=== PATIENT | female | born 1955 | race Caucasian/White ===

== ENCOUNTER → 2020-07-17 09:59 | Outpatient (BNV) | payer MEDICARE, SELFPAY | PROVIDERS: PCP Nurse Practitioner Family; Visit Provider Internal Medicine Medical Oncology | DX: C50.911 Malignant neoplasm of unspecified site of right female breast (principal); M81.0 Age-related osteoporosis without current pathological fracture | CPT/HCPCS: 99213; 99214 ==

== ENCOUNTER 2020-07-25 10:14 | Outpatient (REF) | payer MEDICARE, SELFPAY ==
--- NOTE | 2020-07-25 10:19 | MM_ITS ---
EXAMINATION: BONE DENSITOMETRY CLINICAL INDICATION: Osteoporosis. COMPARISON: Baseline BD dated 10/10/2017. TECHNIQUE: Using a [employer] DXA System (software version: 13.1) manufactured by [employer], dual-energy x-ray absorptiometry was performed of the spine and left hip. The images are of good technical quality. Summary results are attached. FINDINGS: AP SPINE L1-L4: Current: BMD 0.826 g/cm2, Z-score -0.7, T-score -2.9, osteoporosis, 4.7% increase from baseline (<5% change is not significant). Baseline: BMD 0.789 g/cm2. LEFT FEMUR, NECK: Current: BMD 0.666 g/cm2, Z-score -0.7, T-score -2.7, osteoporosis. Baseline: BMD 0.683 g/cm2. LEFT FEMUR, TOTAL: Current: BMD 0.704 g/cm2, Z-score -0.7, T-score -2.4, osteopenia, 2.8% increase from baseline (<5% change is not significant). Baseline: BMD 0.685 g/cm2. IDENTIFIED RISK FACTORS: Osteoporosis, tobacco use (current smoker), height loss, ERT/SERMS, menopause. HISTORY OF FRACTURE: None listed. MEDICATIONS: Calcium supplements or multivitamin, vitamin D. MM/XR DEXA axial skeleton IMPRESSION: 1. DIAGNOSIS: Osteoporosis based on the lowest T-score value of -2.9 in the lumbar spine applying World Health Organization criteria. 2. 10-YEAR FRACTURE RISK PREDICTION, FRAX: Major osteoporotic fracture (clinical spine, forearm, hip or shoulder) 14.5%. Hip fracture 5.6%. 3. Treatment Recommendations: NOF guidelines recommend consideration for treatment in postmenopausal women and men age 50 and older presenting with the following: -A hip or vertebral (clinical or morphometric) fracture. -T-score less than or equal to -2.5 at the femoral neck or spine after appropriate evaluation to exclude secondary causes. -Low bone mass at the hip or spine and a 10-year fracture probability by FRAX of greater than or equal to 3% for hip fracture or greater than or equal to 20% for major osteoporotic fracture based on the [place] adapted WHO algorithm. 4. Other Recommendations: All treatment decisions require clinical judgment and consideration of individual patient factors, including patient preferences, comorbidities, previous drug use, risk factors not captured in the FRAX model (e.g. frailty, falls, vitamin D deficiency, increased bone turnover, interval significant decline in bone density) and possible under or overestimation of fracture risk by FRAX. Additional medical evaluation for secondary cause of low bone mineral density may be appropriate. FUTURE SCAN RECOMMENDATION: People with diagnosed cases of osteoporosis or at high risk for fracture should have regular bone mineral density tests. For patients eligible for Medicare, routine testing is allowed once every 2 years. The testing frequency can be increased to one year for patients who have rapidly progressing disease, those who are receiving or discontinuing medical therapy to restore bone mass, or have additional risk factors.
== END 2020-07-25 10:15 | disposition home or self-care (01) ==
LOC: HO.MAMMO 10:14
PROVIDERS: Visit Provider Internal Medicine Medical Oncology
DX: M81.0 Age-related osteoporosis without current pathological fracture (principal); Z78.0 Asymptomatic menopausal state; F17.200 Nicotine dependence, unspecified, uncomplicated
CPT/HCPCS: 77080

== ENCOUNTER 2020-07-26 13:40 | Outpatient (REF) | payer MEDICARE, SELFPAY | END 2020-07-26 13:41 | disposition home or self-care (01) | LOC: HO.LAB 13:40 | PROVIDERS: Visit Provider Internal Medicine | DX: Z20.828 Contact with and (suspected) exposure to other viral communicable diseases (principal) | CPT/HCPCS: C9803; U0003 ==

== ENCOUNTER → 2020-09-04 12:16 | Outpatient (BNVA) | payer MEDICARE, SELFPAY | PROVIDERS: PCP Nurse Practitioner Family; Visit Provider Physician Assistant | DX: Z13.89 Encounter for screening for other disorder (principal) | CPT/HCPCS: Q3014 ==

== ENCOUNTER 2021-05-09 13:38 | Outpatient (REF) | payer MEDICARE, SELFPAY ==
[2021-05-11 12:56] LABS: Lyme Abs Screen <0.90 index
== END 2021-05-09 13:39 | disposition home or self-care (01) ==
LOC: HO.HMGCLDS 13:38
PROVIDERS: PCP Nurse Practitioner Family; Visit Provider Hospitalist
DX: T14.8XXA Other injury of unspecified body region, initial encounter (principal); W57.XXXA Bitten or stung by nonvenomous insect and other nonvenomous arthropods, initial encounter; Y93.9 Activity, unspecified; Y92.9 Unspecified place or not applicable; Y99.9 Unspecified external cause status
CPT/HCPCS: 36415; 86617; 86618

== ENCOUNTER 2021-12-25 12:35 | Outpatient (REF) | payer BC, MEDICARE, SELFPAY ==
[2021-12-25 13:43] LABS: MANUAL DIFF FLAG NO
[2021-12-25 13:50] LABS: Basophils Absolute Auto 0.1 X10*3/uL (0.0-0.2); Basophils Percent Auto 0.8 % (0-2); Eosinophils Absolute Auto 0.1 X10*3/uL (0.0-0.4); Eosinophils Percent Auto 1.2 % (0-4); Hematocrit 39.8 % (37.0-47.0); Hemoglobin 13.2 g/dl (12.0-16.0); Imm Gran Abs Auto 0.02 X10*3/uL (0.00-0.03); Imm Gran Pct Auto 0.3 % (0.0-0.4); Lymphocytes Absolute Auto 2.1 X10*3/uL (1.2-4.9); Lymphocytes Percent Auto 31.1 % (20-40); Mean Corpuscular HGB Conc 33.2 g/dl (31.0-35.0); Mean Corpuscular Hemoglobin 31.4 pg (27.0-33.0); Mean Corpuscular Volume 94.8 fL (80.0-98.0); Mean Platelet Volume 10.6 fL (9.4-12.3); Monocytes Absolute Auto 0.6 X10*3/uL (0.1-1.2); Monocytes Percent Auto 8.6 % (2-11); Neutrophils Absolute Auto 3.9 x10*3/uL (2.0-8.3); Platelet Count 261 X10*3/uL (160-400); Red Cell Distribution Width 13.8 % (11.0-16.0); White Blood Count 6.7 X10*3/uL (4.8-10.8)
[2021-12-25 13:51] LABS: Appearance Urine CLEAR; Color Urine YELLOW; Glucose Urine UA NEG (NEG); Leukocyte Esterase Urine NEG (NEG); Nitrite Urine NEG (NEG); Specific Gravity - Urine <= 1.005 (1.005-1.025); Urine Blood NEG (NEG); Urine Ketones NEG (NEG); Urine Protein NEG (NEG-TRACE)
[2021-12-25 14:12] LABS: Alanine Aminotransferase 11 U/L (0-31); Albumin Level 4.1 g/dL (3.5-5.0); Alkaline Phosphatase 46 U/L (39-117); Anion Gap 12 (12-20); Aspartate Amino Transferase 17 U/L (5-31); Bilirubin Total 0.2 mg/dL (0.0-1.0); Blood Urea Nitrogen 12 mg/dL (9-16); Calcium 9.1 mg/dL (8.4-10.2); Carbon Dioxide 26 mmol/L (22-29); Chloride 109 mmol/L (96-108); Cholesterol 257 mg/dL; Estimated Glomerular Filt Rate > 60; Glucose Fasting 96 mg/dL (60-99); HDL Cholesterol 54 mg/dL; LDL Cholesterol Calculated 179 mg/dl; Potassium 4.8 mmol/L (3.3-5.1); Sodium 142 mmol/L (135-145); Total Protein 6.6 g/dL (6.5-8.0); Triglycerides 122 mg/dL
[2021-12-25 14:33] LABS: TSH reflex Free T4 2.51 uIU/mL (0.32-4.0)
== END 2021-12-25 12:36 | disposition home or self-care (01) ==
LOC: HO.HMGCLDS 12:35
PROVIDERS: PCP Nurse Practitioner Family; Visit Provider Nurse Practitioner Family
DX: Z00.00 Encounter for general adult medical examination without abnormal findings (principal)
CPT/HCPCS: 36415; 80053; 80061; 81003; 84443; 85025

== ENCOUNTER 2022-07-30 10:22 | Outpatient (REF) | payer MEDICARE, SELFPAY ==
--- NOTE | ~2022-07-30 | MM_ITS ---
EXAMINATION: BONE DENSITOMETRY CLINICAL INDICATION: Asymptomatic menopausal state. COMPARISON: Previous BD dated 07/25/2020 and baseline BD dated 10/10/2017. TECHNIQUE: Using a [employer] DXA System (software version: 13.1) manufactured by [employer], dual-energy x-ray absorptiometry was performed of the lumbar spine and left hip. The images are of good technical quality. Summary results are attached. FINDINGS: AP SPINE L1-L3 (excluding L4): The data of L1-L4 has been changed to exclude the L4 vertebral body, because degenerative sclerosis at this level may cause overestimation of lumbar spine density. Current: BMD 0.692 g/cm2, Z-score -1.7, T-score -4.0, osteoporosis, 13.1% decrease from previous, 6.2% decrease from baseline (<5% change is not significant). Prior: BMD 0.796 g/cm2. Baseline: BMD 0.738 g/cm2. LEFT FEMUR, NECK: Current: BMD 0.705 g/cm2, Z-score -0.4, T-score -2.4, osteopenia. Prior: BMD 0.666 g/cm2. Baseline: BMD 0.683 g/cm2. LEFT FEMUR, TOTAL: Current: BMD 0.683 g/cm2, Z-score -0.8, T-score -2.6, osteoporosis, 3.0% decrease from previous, 0.3% decrease from baseline (<5% change is not significant). Prior: BMD 0.704 g/cm2. Baseline: BMD 0.685 g/cm2. IDENTIFIED RISK FACTORS: Osteoporosis, tobacco use (current smoker), height loss, menopause. HISTORY OF FRACTURE: None listed. MEDICATIONS: Calcium/multivitamin, ERT/SERMS. MM/XR DEXA axial skeleton IMPRESSION: 1. DIAGNOSIS: Osteoporosis based on the lowest T-score value of -4.0 in the lumbar spine applying World Health Organization criteria. 2. 10-YEAR FRACTURE RISK PREDICTION, FRAX: According to the guidelines, FRAX calculation should only be performed on patients in the osteopenia bone density category. Therefore, FRAX was not performed on this patient. 3. Treatment Recommendations: NOF guidelines recommend consideration for treatment in postmenopausal women and men age 50 and older presenting with the following: -A hip or vertebral (clinical or morphometric) fracture. -T-score less than or equal to -2.5 at the femoral neck or spine after appropriate evaluation to exclude secondary causes. -Low bone mass at the hip or spine and a 10-year fracture probability by FRAX of greater than or equal to 3% for hip fracture or greater than or equal to 20% for major osteoporotic fracture based on the [place] adapted WHO algorithm. 4. Other Recommendations: All treatment decisions require clinical judgment and consideration of individual patient factors, including patient preferences, comorbidities, previous drug use, risk factors not captured in the FRAX model (e.g. frailty, falls, vitamin D deficiency, increased bone turnover, interval significant decline in bone density) and possible under or overestimation of fracture risk by FRAX. Additional medical evaluation for secondary cause of low bone mineral density may be appropriate. FUTURE SCAN RECOMMENDATION: People with diagnosed cases of osteoporosis or at high risk for fracture should have regular bone mineral density tests. For patients eligible for Medicare, routine testing is allowed once every 2 years. The testing frequency can be increased to one year for patients who have rapidly progressing disease, those who are receiving or discontinuing medical therapy to restore bone mass, or have additional risk factors.
== END 2022-07-30 10:23 | disposition home or self-care (01) ==
LOC: HO.MAMMO 10:22
PROVIDERS: Visit Provider Nurse Practitioner Family
DX: Z13.820 Encounter for screening for osteoporosis (principal); Z78.0 Asymptomatic menopausal state
CPT/HCPCS: 77080

== ENCOUNTER 2022-09-25 12:44 | Outpatient (REF) | payer MEDICARE, SELFPAY ==
[2022-09-25 15:24] LABS: Anion Gap 11 (12-20); Blood Urea Nitrogen 13 mg/dL (9-16); Calcium 9.2 mg/dL (8.4-10.2); Carbon Dioxide 29 mmol/L (22-29); Chloride 109 mmol/L (96-108); Estimated Glomerular Filt Rate > 60; Potassium 4.6 mmol/L (3.3-5.1); Sodium 144 mmol/L (135-145)
[2022-09-25 15:46] LABS: Vitamin D 25-OH Total 44.9 ng/mL (>30)
== END 2022-09-25 12:45 | disposition home or self-care (01) ==
LOC: HO.HMGCLDS 12:44
PROVIDERS: Absent Provider Internal Medicine Nephrology; PCP Nurse Practitioner Family; Visit Provider Nurse Practitioner Family
DX: I10 Essential (primary) hypertension (principal); M81.0 Age-related osteoporosis without current pathological fracture; Z78.0 Asymptomatic menopausal state
CPT/HCPCS: 36415; 80051; 82306; 82310; 82565; 84520

== ENCOUNTER → 2022-10-04 09:39 | Outpatient (BNVA) | payer MEDICARE, SELFPAY | PROVIDERS: PCP Nurse Practitioner Family; Visit Provider Internal Medicine Endocrinology, Diabetes & Metabolism | DX: Z00.00 Encounter for general adult medical examination without abnormal findings (principal); M81.0 Age-related osteoporosis without current pathological fracture; I10 Essential (primary) hypertension; F17.200 Nicotine dependence, unspecified, uncomplicated; Z78.0 Asymptomatic menopausal state; Z79.810 Long term (current) use of selective estrogen receptor modulators (SERMs) | CPT/HCPCS: 99202 ==

== ENCOUNTER 2023-04-04 10:44 | Outpatient (AMB) | payer MEDICARE, SELFPAY ==
--- NOTE | 2023-04-04 12:34 | AM.OFFWIN_ITS ---
Intake Vital Signs 04/04/23 12:36 Weight 94 lb BP 130/76 Blood Pressure Location Lt brachial Position Sitting Pulse 85 Pulse Source Pulse Oximeter Pulse Oximetry (%) 97 Oxygen Delivery Method Room Air Intake Visit Reasons: EST/reaction to medication? [phone] Intake Note: Patient here for reaction to Clindamycin. she states she feels like something is stuck whenever she drinks something but no problem when eating and also has developed rash on face. Patient Tobacco Use Status: Current everyday Tobacco user Allergies varenicline [From CHANTIX] Allergy (Severe, Verified 04/04/23 13:00) HIVES erythromycin base [ERYTHROMYCIN BASE] Allergy (Intermediate, Verified 04/04/23 13:00) RASH Macrolide Antibiotics [MACROLIDE ANTIBIOTICS] Allergy (Intermediate, Verified 04/04/23 13:00) RASH Sulfa (Sulfonamide Antibiotics) [SULFA (SULFONAMIDE ANTIBIOTICS)] Allergy (Intermediate, Verified 04/04/23 13:00) RASH amoxicillin Allergy (Unknown, Verified 04/04/23 13:00) Unknown barium sulfate Allergy (Unknown, Verified 04/04/23 13:00) Hives penicillin V Allergy (Unknown, Verified 04/04/23 13:00) Rash sertraline [From Zoloft] Adverse Reaction (Mild, Verified 04/04/23 13:00) Insomnia citalopram Adverse Reaction (Unknown, Verified 04/04/23 13:00) Burning sensation all over body Erythromycin Allergy (Unknown, Uncoded 04/04/23 13:00) Unsure Sulfa drugs Allergy (Unknown, Uncoded 04/04/23 13:00) Unsure sertraline Adverse Reaction (Uncoded 04/04/23 13:00) Insomnia Medication List - Last Reconciled 04/04/23 by Rell Verdugo MD amlodipine 0.5 tabs PO QAM atenolol 1.5 tabs PO DAILY calcium carbonate-vitamin D3 600 mg-10 mcg (400 unit) (Calcium with Vitamin D) 1 tab PO BID 30 days diazepam 5 mg PO BID PRN 30 days evening primrose oil 500 mg PO TID levothyroxine 25 mcg PO DAILY lisinopril 1 tab PO DAILY omeprazole 20 mg PO DAILY sertraline 25 mg PO DAILY tamoxifen 1 tab PO DAILY Do you need a note to return to daycare/school/sports/work: No HPI EST/reaction to medication? [phone] HPI Details 67-year-old female presents to the office for a sick visit. Patient re cently had 2 teeth extracted. Subsequently she was put on clindamycin. After she took a single dose, patient felt something was stuck in her esophagus. She was able to eat and swallow without any difficulty. When she drank water she felt some discomfort she stopped taking the medication. She also noticed a small rash under her lip, patient believes she is having a drug related reaction. Reports no shortness of breath PFSH Medical History Hypertension Hypothalamic hypothyroidism Surgical History Femoral hernia of right side History of tonsillectomy Hx of lumpectomy Family History Family/Other Brain cancer Social History Household Members: None Housing: House Are you a primary director of health care marketing to a significant other at home: No Do you presently have visiting nurse or other home services: No Alcohol intake: current Alcohol intake frequency: holidays/special occasions only Patient Tobacco Use Status: Current everyday Tobacco user Cigarette Packs Per Day: 1 e-Cigarette/Vaping Use: Never Used Second Hand Smoke Exposure: No Substance Use Type: Marijuana service: No Current occupational status: employed 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 Current occupational exposures/hazards: No Cognitive needs: No Hearing needs: No Vision needs: No Physical Exam Vital Signs: Last Vital Signs Pulse 85 04/04/23 12:36 BP 130/76 04/04/23 12:36 Pulse Ox 97 04/04/23 12:36 Oxygen Delivery Method Room Air 04/04/23 12:36 Const General: cooperative and healthy appearing Nutritional Appearance: well nourished Orientation/consciousness: patient oriented x3 Limitations: no limitations HEENT Head: Yes normal to inspection Eyes General: appearance normal, both eyes and all related structures Neck Neck: Yes normal visual inspection Chest Chest palpation & inspection: normal palpation of entire chest wall Resp Effort & Inspection: normal respiratory effort Skin Other: Lower lip: Right lower margin tiny erythematous rash. Neuro General: patient oriented x3 Assessment & Plan Assessment & Plan (1) Rash: Code(s): R21 - Rash and other nonspecific skin eruption Plan: Unlikely related to medication. Reassurance. Patient has discontinued the clindamycin. Omeprazole can be increased to 2 times a day for the next 5 days. Coding Level of Care Code Est Pt Level 3 (03913) Diagnoses Rash R21
[2023-04-04 12:36] VITALS: BP 130/76; PULSE 85; O2SAT 97
== END 2023-04-04 13:39 | disposition home or self-care (01) ==
PROVIDERS: PCP Nurse Practitioner Family; Visit Provider Internal Medicine
DX: R21 Rash and other nonspecific skin eruption (principal)
CPT/HCPCS: 99213

== ENCOUNTER 2023-05-16 10:24 | Outpatient (REF) | payer MEDICARE, SELFPAY ==
[2023-05-16 13:20] LABS: MANUAL DIFF FLAG NO
[2023-05-16 13:44] LABS: Basophils Absolute Auto 0.1 X10*3/uL (0.0-0.2); Basophils Percent Auto 0.8 % (0-2); Eosinophils Absolute Auto 0.1 X10*3/uL (0.0-0.4); Eosinophils Percent Auto 1.8 % (0-4); Hematocrit 41.6 % (37.0-47.0); Hemoglobin 13.4 g/dl (12.0-16.0); Imm Gran Abs Auto 0.01 X10*3/uL (0.00-0.03); Imm Gran Pct Auto 0.2 % (0.0-0.4); Lymphocytes Absolute Auto 2.4 X10*3/uL (1.2-4.9); Lymphocytes Percent Auto 36.1 % (20-40); Mean Corpuscular HGB Conc 32.2 g/dl (31.0-35.0); Mean Corpuscular Hemoglobin 30.6 pg (27.0-33.0); Mean Platelet Volume 11.1 fL (9.4-12.3); Monocytes Absolute Auto 0.7 X10*3/uL (0.1-1.2); Monocytes Percent Auto 10.7 % (2-11); Neutrophils Absolute Auto 3.3 x10*3/uL (2.0-8.3); Neutrophils Percent Auto 50.4 % (45-73); Platelet Count 250 X10*3/uL (160-400); Red Blood Count 4.38 X10*6/uL (4.20-5.50); Red Cell Distribution Width 13.4 % (11.0-16.0); White Blood Count 6.5 X10*3/uL (4.8-10.8)
[2023-05-16 13:44] LABS: Appearance Urine Clear; Color Urine Yellow; Glucose Urine UA Negative (Negative); Leukocyte Esterase Urine Small (1+) (Negative); Nitrite Urine Negative (Negative); PH 5.5 (5.0-9.0); UMIC TRIGGER UACC YES; Urine Blood Negative (Negative); Urine Ketones Negative (Negative); Urine Protein Negative (Neg-Trace)
[2023-05-16 13:57] LABS: Bacteria Urine None Seen (None Seen); Hyaline Casts Urine 0-2 /LPF (0-2); RBC Urine 0-2 /HPF (0-2); UACC Culture Trigger YES; WBC Urine 0-5 /HPF (0-5)
[2023-05-16 14:55] LABS: Alanine Aminotransferase 9 U/L (0-31); Alkaline Phosphatase 45 U/L (39-117); Anion Gap 13 (12-20); Aspartate Amino Transferase 16 U/L (5-31); Bilirubin Total 0.2 mg/dL (0.0-1.0); Blood Urea Nitrogen 16 mg/dL (9-16); Calcium 8.9 mg/dL (8.4-10.2); Carbon Dioxide 24 mmol/L (22-29); Chloride 109 mmol/L (96-108); Cholesterol 263 mg/dL (<200); Estimated Glomerular Filt Rate > 60; Glucose Fasting 91 mg/dL (60-99); HDL Cholesterol 64 mg/dL (>40); LDL Cholesterol Calculated 184 mg/dL (<100); Potassium 4.2 mmol/L (3.3-5.1); Sodium 142 mmol/L (135-145); TSH reflex Free T4 4.36 uIU/mL (0.32-4.0); Total Protein 6.5 g/dL (6.5-8.0); Triglycerides 77 mg/dL (<150); Vitamin D 25-OH Total 68.7 ng/mL (>30)
[2023-05-16 15:25] LABS: Free T4 (Free Thyroxine) 0.85 ng/dL (0.71-1.85)
== END 2023-05-16 10:25 | disposition home or self-care (01) ==
LOC: HO.HMGCLDS 10:24
PROVIDERS: PCP Nurse Practitioner Family; Visit Provider Nurse Practitioner Family
DX: Z00.00 Encounter for general adult medical examination without abnormal findings (principal); M81.0 Age-related osteoporosis without current pathological fracture; Z78.0 Asymptomatic menopausal state; R82.90 Unspecified abnormal findings in urine; E78.5 Hyperlipidemia, unspecified; F41.9 Anxiety disorder, unspecified; E03.9 Hypothyroidism, unspecified
CPT/HCPCS: 36415; 80053; 80061; 81001; 82306; 84439; 84443; 85025; 87086

== ENCOUNTER 2023-08-28 15:25 | Outpatient (AMB) | payer MEDICARE, SELFPAY ==
--- NOTE | 2023-08-28 15:32 | A.OFFPC_ITS ---
Vital Signs 08/28/23 15:35 Height 4 ft 11 in Weight 98 lb BMI 19.8 BP 160/88 H Blood Pressure Location Lt brachial Position Sitting Pulse 86 Pulse Source Pulse Oximeter Pulse Oximetry (%) 98 Oxygen Delivery Method Room Air Intake Visit Reasons: follow up Intake Note: Pt is here for a follow up on her HTN and thyroid Allergies varenicline [From CHANTIX] Allergy (Severe, Verified 08/28/23 15:39) HIVES erythromycin base [ERYTHROMYCIN BASE] Allergy (Intermediate, Verified 08/28/23 15:39) RASH Macrolide Antibiotics [MACROLIDE ANTIBIOTICS] Allergy (Intermediate, Verified 08/28/23 15:39) RASH Sulfa (Sulfonamide Antibiotics) [SULFA (SULFONAMIDE ANTIBIOTICS)] Allergy (Intermediate, Verified 08/28/23 15:39) RASH amoxicillin Allergy (Unknown, Verified 08/28/23 15:39) Unknown barium sulfate Allergy (Unknown, Verified 08/28/23 15:39) Hives penicillin V Allergy (Unknown, Verified 08/28/23 15:39) Rash sertraline [From Zoloft] Adverse Reaction (Mild, Verified 08/28/23 15:39) Insomnia citalopram Adverse Reaction (Unknown, Verified 08/28/23 15:39) Burning sensation all over body Erythromycin Allergy (Unknown, Uncoded 08/28/23 15:39) Unsure Sulfa drugs Allergy (Unknown, Uncoded 08/28/23 15:39) Unsure sertraline Adverse Reaction (Uncoded 08/28/23 15:39) Insomnia Tobacco use date assessed: 08/28/23 Fall risk assessment: No Falls in past year Last assessed Fall Risk: 08/28/23 Dental Screening Dental Screen Date: 08/28/23 Did you have a dental visit in the last 12 months?: Yes Did you have a dental problem in the last 6 months where you did not have access to dental care?: No Was dental information given to patient?: Patient has dentist HPI follow up HPI Details Pt's blood pressure is elevated today, though she reports this is due to anxiety. Pt does appear very anxious today. Denies chest pain, shortness of breath, headache, dizziness, and blurred vision. Dyslipidemia: Pt will think about starting a statin. she will come back for a nurse visit for BP checks in our office. [facility] Medical History (Updated 08/28/23 @ 17:51 by Sukh Patel [facility]) Hypothalamic hypothyroidism Hypertension Surgical History Hx of lumpectomy Femoral hernia of right side History of tonsillectomy Family History Family/Other Brain cancer Social History Household Members: None Housing: House Are you a primary pet care assistant to a significant other at home: No Do you presently have visiting nurse or other home services: No Alcohol intake: current Alcohol intake frequency: holidays/special occasions only Patient Tobacco Use Status: Current everyday Tobacco user Cigarette Packs Per Day: 1 e-Cigarette/Vaping Use: Never Used Second Hand Smoke Exposure: No Substance Use Type: Marijuana service: No Current occupational status: employed 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 How often do you have a drink containing alcohol?: Monthly or less 2. How many drinks containing alcohol do you have on a typical day when you are drinking?: 1 or 2 3. How often do you have six or more drinks on one occasion?: Never Total Score: 1 LELE-7 AMB Questionnaire LELE-7 Date LELE - 7 assessed: 08/28/23 Feeling nervous, anxious, or on edge: 3 = Nearly every day Not being able to stop or control worryin = Nearly every day Worrying too much about different things: 3 = Nearly every day Trouble relaxin = Nearly every day Being so restless that it is hard to sit still: 0 = Not at all Becoming easily annoyed or irritable: 2 = More than half the days Feeling afraid as if something awful might happen: 3 = Nearly every day Total LELE-7 score (0-4 normal; 5-9 mild; 10-14 moderate; 15-21 severe): 17 Source: Developed by Drs. Andrea Willis, Dayana Carter, Ata Perkins and colleagues, with an educational jessie from [employer]. Review of Systems Const Reports as per HPI Physical exam (Primary Care) Vital Signs: Last Vital Signs Pulse 86 08/28/23 15:35 BP 160/88 H 08/28/23 15:35 Pulse Ox 98 08/28/23 15:35 Oxygen Delivery Method Room Air 08/28/23 15:35 BMI result Body Mass Index 19.8 Tobacco/Smoking Status: Tobacco use Status Tobacco use date assessed 08/28/23 08/28/23 15:43 Patient Tobacco Use Status Current everyday Tobacco 08/28/23 15:34 e-Cigarette/Vaping Use Never Used 08/28/23 15:34 Thrive Assessment: Date of Thrive Assessment Date Thrive assessed 12/25/21 08/28/23 15:34 Const General: cooperative Orientation/consciousness: patient oriented x3 Resp Effort & Inspection: normal respiratory effort Auscultation: clear to auscultation bilaterally Cardio Rate: regular rate Rhythm: regular rhythm Heart sounds: S1 normal heart sound present, S2 normal heart sound present and Murmur heart sound present systolic (faint) Neuro General: patient oriented x3 Psych Appearance: grossly normal Mental Status: mental status grossly normal Speech and movement: Normal speech and movement present Affect: normal affect Attitude: cooperative Thought process: Normal thought process present Thought content: Normal thought content present Insight: Good insight present (Psych) Judgement: Good judgement present (Psych) Assessment and Plan Assessment & Plan (1) Dyslipidemia: Code(s): E78.5 - Hyperlipidemia, unspecified (2) Hypertension: Code(s): I10 - Essential (primary) hypertension Plan The patient agreed to the use of a medical front desk specialist for this encounter. Scribed for ASHLEY Pacheco by Sadia Caban medical front desk specialist, on 08/28/2023 at 15:45 EST. Orders: Orders Complete Blood Count Auto Diff Today E78.5 - Hyperlipidemia, unspecified, I10 - Essential (primary) hypertension Comprehensive [place]. Panel Fast Today E78.5 - Hyperlipidemia, unspecified, I10 - Essential (primary) hypertension TSH reflex Free T4 Today E78.5 - Hyperlipidemia, unspecified, I10 - Essential (primary) hypertension Lipid Panel Today E78.5 - Hyperlipidemia, unspecified, I10 - Essential (primary) hypertension UA CC w/rflx Micro + Cult Today E78.5 - Hyperlipidemia, unspecified, I10 - Essential (primary) hypertension Vitamin D 25-OH Total Today E78.5 - Hyperlipidemia, unspecified, I10 - Essential (primary) hypertension Coding Level of Care Code Est Pt Level 3 (87180) Diagnoses Dyslipidemia E78.5 Hypertension I10
[2023-08-28 15:35] VITALS: BP 160/88; PULSE 86; O2SAT 98; BMI 19.8
== END 2023-08-28 16:44 | disposition home or self-care (01) ==
PROVIDERS: PCP Nurse Practitioner Family; Visit Provider Nurse Practitioner Family
DX: E78.5 Hyperlipidemia, unspecified (principal); I10 Essential (primary) hypertension
CPT/HCPCS: 99213

== ENCOUNTER 2023-11-18 10:02 | Outpatient (AMB) | payer MEDICARE, SELFPAY ==
[2023-11-18 10:04] VITALS: BP 130/80; PULSE 67; O2SAT 96; BMI 20.2
--- NOTE | 2023-11-18 10:04 | HO.NEPHOV_ITS ---
Vital Signs 11/18/23 10:04 Height 4 ft 11 in Weight 100 lb BMI 20.2 BP 130/80 Blood Pressure Location Rt brachial Position Sitting Pulse 67 Pulse Source Pulse Oximeter Pulse Oximetry (%) 96 Oxygen Delivery Method Room Air Intake Visit Reasons: CKD/ LVM Medical Research Associate Required: No Accompanied by: Self / Same As Patient Allergies varenicline [From CHANTIX] Allergy (Severe, Verified 11/18/23 10:08) HIVES erythromycin base [ERYTHROMYCIN BASE] Allergy (Intermediate, Verified 11/18/23 10:08) RASH Macrolide Antibiotics [MACROLIDE ANTIBIOTICS] Allergy (Intermediate, Verified 11/18/23 10:08) RASH Sulfa (Sulfonamide Antibiotics) [SULFA (SULFONAMIDE ANTIBIOTICS)] Allergy (Intermediate, Verified 11/18/23 10:08) RASH amoxicillin Allergy (Unknown, Verified 11/18/23 10:08) Unknown barium sulfate Allergy (Unknown, Verified 11/18/23 10:08) Hives penicillin V Allergy (Unknown, Verified 11/18/23 10:08) Rash bupropion [From Wellbutrin] Adverse Reaction (Intermediate, Verified 11/18/23 10:08) Tinnitus sertraline [From Zoloft] Adverse Reaction (Mild, Verified 11/18/23 10:08) Insomnia citalopram Adverse Reaction (Unknown, Verified 11/18/23 10:08) Burning sensation all over body Erythromycin Allergy (Unknown, Uncoded 08/28/23 15:39) Unsure Sulfa drugs Allergy (Unknown, Uncoded 08/28/23 15:39) Unsure sertraline Adverse Reaction (Uncoded 08/28/23 15:39) Insomnia HPI Comments Details: I had the privilege of seeing Fabiola in follow-up of her hypertension. She had been going through a lot of personal life stressors. She closely monitor her blood pressure at home. She has history of breast cancer and had undergone lumpectomy radiation and chemotherapy. Her blood pressure had gone up during her chemotherapy time. She does not have any chest pain, shortness of breath, proximal nocturnal dyspnea, orthopnea, pedal edema. She does not take excess sodium in the diet or nonsteroidal anti-inflammatories. She has no orthostatic symptoms. She maintains compliance with her medications. There were no new active issues at the time of this office visit. [facility] Medical History (Updated 11/18/23 @ 10:37 by Waqas Brasher MD) Hypothalamic hypothyroidism Hypertension Surgical History Hx of lumpectomy Femoral hernia of right side History of tonsillectomy Family History Family/Other Brain cancer Social History Household Members: None Housing: House Are you a primary memory care director to a significant other at home: No Do you presently have visiting nurse or other home services: No Alcohol intake: current Alcohol intake frequency: holidays/special occasions only Patient Tobacco Use Status: Current everyday Tobacco user Tobacco use type: Cigarette Cigarette Packs Per Day: 1 e-Cigarette/Vaping Use: Never Used Second Hand Smoke Exposure: No Substance Use Type: Marijuana service: No Current occupational status: employed 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 Current occupational exposures/hazards: No Cognitive needs: No Hearing needs: Yes Vision needs: No Physical Exam Vital Signs: Last Vital Signs Pulse 67 11/18/23 10:04 BP 130/80 11/18/23 10:04 Pulse Ox 96 11/18/23 10:04 Oxygen Delivery Method Room Air 11/18/23 10:04 BMI result Body Mass Index 20.2 Const General: comfortable and no acute distress Orientation/consciousness: patient oriented x3 HEENT Head: Yes normocephalic Mouth: Normal oral and palatal mucosa present Eyes EOM: EOMs intact bilaterally Neck Neck: Yes supple Resp Auscultation: clear to auscultation bilaterally Cardio Jugular venous distension: no JVD Rate: regular rate GI Palpation (GI): Soft to palpation Auscultation: normal bowel sounds General: Yes no CVA tenderness Back/Spine/Pelvis Back: no CVA tenderness Skin General skin exam: no rashes or lesions noted Neuro General: patient oriented x3 and moves all extremities Extrem General: Yes no pedal edema Results Reviewed Nephrology Results: Hgb 13.7 g/dl (12.0-16.0) 07/11/23 WBC 8.2 X10*3/uL (4.8-10.8) 07/11/23 Plt Count 293 X10*3/uL (160-400) 07/11/23 Sodium 144 mmol/L (135-145) 07/11/23 Potassium 3.8 mmol/L (3.3-5.1) 07/11/23 Chloride 108 mmol/L (96-108) 07/11/23 Carbon Dioxide 30 mmol/L (22-29) H 07/11/23 BUN 20 mg/dL (9-16) H 07/11/23 Creatinine 0.85 mg/dL (0.5-1.4) 07/11/23 Calcium 9.6 mg/dL (8.4-10.2) 07/11/23 Urine Protein Negative mg/dL (Neg-Trace) 05/16/23 Assessment & Plan Assessment & Plan (1) Hypertension: Code(s): I10 - Essential (primary) hypertension Category: Medical Qualifiers: Hypertension type: renovascular hypertension Qualified Code(s): I15.0 - Renovascular hypertension Plan Fabiola has longstanding hypertension. She maintains a low-sodium diet. 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 I plan to arrange Doppler of renal arteries with time to monitor the caliber of her renal arteries. Her serum potassium renal functions had been stable. Her blood pressure is very we ll controlled on the current medication regimen. She is tolerating amlodipine, lisinopril as well as atenolol. She avoids nonsteroidal anti-inflammatories .Her volume status was optimal. I did not make any medication changes today. All her questions were answered. Follow-up appointment was given. Orders: Orders Creatinine 11/18/23 I15.0 - Renovascular hypertension Blood Urea Nitrogen 11/18/23 I15.0 - Renovascular hypertension Electrolytes 11/18/23 I15.0 - Renovascular hypertension Protein Creatinine Ratio, Ur 11/18/23 I15.0 - Renovascular hypertension Coding Level of Care Code Est Pt Level 4 (84867) Diagnoses Renovascular hypertension I15.0 Hypertension type: renovascular hypertension
== END 2023-11-18 10:49 | disposition home or self-care (01) ==
PROVIDERS: PCP Nurse Practitioner Family; Visit Provider Internal Medicine Nephrology
DX: I15.0 Renovascular hypertension (principal)
CPT/HCPCS: 99214

== ENCOUNTER → 2023-11-18 10:02 | Outpatient (BNVA) | payer MEDICARE, SELFPAY | PROVIDERS: PCP Nurse Practitioner Family; Visit Provider Internal Medicine Nephrology | DX: I15.0 Renovascular hypertension (principal) | CPT/HCPCS: 99212 ==

== ENCOUNTER 2023-12-17 13:02 | Outpatient (AMB) | payer MEDICARE, SELFPAY ==
--- NOTE | 2023-12-17 13:03 | MHC.PC.OV ---
Vital Signs 12/17/23 13:09 12/17/23 14:09 Height 4 ft 11 in Weight 97 lb BMI 19.6 BP 130/90 H 130/90 H Blood Pressure Location Lt brachial Lt brachial Position Sitting Sitting Pulse 76 Pulse Source Pulse Oximeter Pulse Oximetry (%) 94 Oxygen Delivery Method Room Air Intake Visit Reasons: Follow up Intake Note: Patient here to follow up on heart murmur. Allergies varenicline [From CHANTIX] Allergy (Severe, Verified 12/17/23 13:10) HIVES erythromycin base [ERYTHROMYCIN BASE] Allergy (Intermediate, Verified 12/17/23 13:10) RASH Macrolide Antibiotics [MACROLIDE ANTIBIOTICS] Allergy (Intermediate, Verified 12/17/23 13:10) RASH Sulfa (Sulfonamide Antibiotics) [SULFA (SULFONAMIDE ANTIBIOTICS)] Allergy (Intermediate, Verified 12/17/23 13:10) RASH amoxicillin Allergy (Unknown, Verified 12/17/23 13:10) Unknown barium sulfate Allergy (Unknown, Verified 12/17/23 13:10) Hives penicillin V Allergy (Unknown, Verified 12/17/23 13:10) Rash bupropion [From Wellbutrin] Adverse Reaction (Intermediate, Verified 12/17/23 13:10) Tinnitus sertraline [From Zoloft] Adverse Reaction (Mild, Verified 12/17/23 13:10) Insomnia citalopram Adverse Reaction (Unknown, Verified 12/17/23 13:10) Burning sensation all over body Erythromycin Allergy (Unknown, Uncoded 12/17/23 13:10) Unsure Sulfa drugs Allergy (Unknown, Uncoded 12/17/23 13:10) Unsure sertraline Adverse Reaction (Uncoded 12/17/23 13:10) Insomnia Medication List - Last Reconciled 12/17/23 by Sukh Patel, SCRAP PILER- amlodipine 0.5 tabs PO QAM atenolol 37.5 mg (1.5 x 25 mg) PO DAILY 30 days calcium carbonate-vitamin D3 600 mg-10 mcg (400 unit) (Calcium with Vitamin D) 1 tab PO BID 30 days diazepam 5 mg PO BID PRN 30 days levothyroxine 25 mcg PO DAILY lisinopril 1 tab PO DAILY omeprazole 20 mg PO DAILY Tobacco use date assessed: 08/28/23 Fall risk assessment: No Falls in past year Last assessed Fall Risk: 12/17/23 Dental Screening Dental Screen Date: 08/28/23 HPI Follow up HPI Details HTN: Blood pressure is managed with amlodipine and lisinopril. Pt reports that her blood pressure is lower at other providers' offices. Denies chest pain, shortness of breath, headache, dizziness, and blurred vision. Sees renal for her HTN as well. Dyslipidemia: Will order labs. Anxiety: Pt is seeing a therapist. She has tried multiple antidepressants which did not help. Pt is taking diazepam as needed (see psychiatry), considering magnitism, which i think is a great idea (poor response to meds).. Denies any SI and HI. Refuses colon screen, will order cologuard. Due for bone density, will order. Pt is a smoker, she will think about low-dose CT, which i have mentioned to her in the past. [facility]LY [facility], [facility] Medical History Renal artery stenosis Hypothalamic hypothyroidism Hypertension Surgical History Hx of lumpectomy Femoral hernia of right side History of tonsillectomy Family History Family/Other Brain cancer Social History Household Members: None Housing: House Are you a primary customer care specialist to a significant other at home: No Do you presently have visiting nurse or other home services: No Alcohol intake: current Alcohol intake frequency: holidays/special occasions only Patient Tobacco Use Status: Current everyday Tobacco user Tobacco use type: Cigarette Cigarette Packs Per Day: 1 e-Cigarette/Vaping Use: Never Used Second Hand Smoke Exposure: No Substance Use Type: Marijuana service: No Current occupational status: employed 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 [id number] - PHQ-9 Billing: Patient declined-do not bill Source: Developed by Drs. Andrea Willis, DayanaAta Munson and colleagues, with an educational jessie from [employer]. Thrive Questionnaire Date Thrive assessed: 12/25/21 What is your living situation today?: I choose not to answer this question Within the past 12 months, did the food you bought not last and you didn't have the money to get more?: I choose not to answer this question Within the past 12 months, did you worry whether your food would run out before you got money to buy more?: I choose not to answer this question Do you have trouble paying for medicines?: I choose not to answer this question Do you have trouble getting transportation to medical appointments?: I choose not to answer this question Do you have trouble paying your heating and electricity bill?: I choose not to answer this question Do you have trouble taking care of your child, family member or friend?: I choose not to answer this question Do you have trouble with day-to-day activities such as bathing, preparing meals, shopping, managing finances, etc.?: I choose not to answer this question Are you currently unemployed and looking for a job?: I choose not to answer this question Are you interested in more education?: I choose not to answer this question Currently or been in a relationship where the following occur: I choose not to answer this question THRIVE Score: 0 AUDIT C Alcohol Use Questionnaire (AUDIT-C) 1. How often do you have a drink containing alcohol?: Never 3. How often do you have six or more drinks on one occasion?: Never Total Score: 0 Score Reviewed/Action Taken: No LELE-7 AMB Questionnaire LELE-7 Date LELE - 7 assessed: 12/17/23 Source: Developed by Drs. Andrea Willis, Ata Graham and colleagues, with an educational jessie from [employer]. LELE-7 Assessment Billing LELE-7 Assessment Tool: pt declined-do not bill Review of Systems Const Reports as per HPI Physical exam (Primary Care) Vital Signs: Last Vital Signs Pulse 76 12/17/23 13:09 BP 130/90 H 12/17/23 14:09 Pulse Ox 94 12/17/23 13:09 Oxygen Delivery Method Room Air 12/17/23 13:09 BMI result Body Mass Index 19.6 Tobacco/Smoking Status: Tobacco use Status Tobacco use date assessed 08/28/23 12/17/23 13:05 Patient Tobacco Use Status Current everyday Tobacco 12/17/23 13:05 Tobacco use type Cigarette 12/17/23 13:05 e-Cigarette/Vaping Use Never Used 12/17/23 13:05 Thrive Assessment: Date of Thrive Assessment Date Thrive assessed 12/25/21 12/17/23 13:05 Currently or been in a relationship where the following occur: I choose not to answer this question Const General: cooperative Orientation/consciousness: patient oriented x3 Resp Effort & Inspection: normal respiratory effort Auscultation: clear to auscultation bilaterally and diminished lung sounds Cardio Rate: regular rate Rhythm: regular rhythm Heart sounds: S1 normal heart sound present and S2 normal heart sound present Neuro General: patient oriented x3 Psych Appearance: grossly normal Mental Status: mental status grossly normal Speech and movement: Normal speech and movement present Affect: normal affect Attitude: cooperative Thought process: Normal thought process present Thought content: Normal thought content present Insight: Good insight present (Psych) Judgement: Good judgement present (Psych) Assessment and Plan Assessment & Plan (1) Osteoporosis: Code(s): M81.0 - Age-related osteoporosis without current pathological fracture Plan: bone density ordered (2) Hypertension: Code(s): I10 - Essential (primary) hypertension Qualifiers: Hypertension type: renovascular hypertension Qualified Code(s): I15.0 - Renovascular hypertension (3) Osteoporosis: Code(s): M81.0 - Age-related osteoporosis without current pathological fracture (4) Hypertension: Code(s): I10 - Essential (primary) hypertension Qualifiers: Hypertension type: renovascular hypertension Qualified Code(s): I15.0 - Renovascular hypertension Plan: seeing renal, much better readings at home (5) Dyslipidemia: Code(s): E78.5 - Hyperlipidemia, unspecified Plan: labs ordered (6) Anxiety: Code(s): F41.9 - Anxiety disorder, unspecified (7) PTSD (post-traumatic stress disorder): Code(s): F43.10 - Post-traumatic stress disorder, unspecified Plan: sees psychiatry, ? starting magnitism in the near future. (8) Depression: Code(s): F32.A - Depression, unspecified Plan The patient agreed to the use of a medical biller coder for this encounter. Scribed for Sukh Patel, SCRAP PILER-BC by Sadia Caban medical biller coder, on 12/17/2023 at 13:25 EST. Orders: Orders Lipid Panel Today I15.0 - Renovascular hypertension Vitamin D 25-OH Total Today M81.0 - Age-related osteoporosis without current pathological fracture XR DEXA axial skeleton 7 Months M81.0 - Age-related osteoporosis without current pathological fracture Complete Blood Count Auto Diff Today I15.0 - Renovascular hypertension Comprehensive [place]. Panel Fast Today I15.0 - Renovascular hypertension TSH reflex Free T4 Today I15.0 - Renovascular hypertension UA CC w/rflx Micro + Cult Today I15.0 - Renovascular hypertension Vitamin B12 and Folate Today E78.5 - Hyperlipidemia, unspecified, I15.0 - Renovascular hypertension Vitamin B6 Today E78.5 - Hyperlipidemia, unspecified, I15.0 - Renovascular hypertension Referrals Cologuard Test Z12.11 - Encounter for screening for malignant neoplasm of colon, Z12.12 - Encounter for screening for malignant neoplasm of rectum Coding Level of Care Code Est Pt Level 3 (37002) Diagnoses Osteoporosis M81.0 Renovascular hypertension I15.0 Hypertension type: renovascular hypertension Dyslipidemia E78.5 Anxiety F41.9 PTSD (post-traumatic stress disorder) F43.10 Depression F32.A
[2023-12-17 13:09] VITALS: BP 130/90; PULSE 76; O2SAT 94; BMI 19.6
[2023-12-17 14:09] VITALS: BP 130/90
== END 2023-12-17 14:25 | disposition home or self-care (01) ==
PROVIDERS: PCP Nurse Practitioner Family; Visit Provider Nurse Practitioner Family
DX: M81.0 Age-related osteoporosis without current pathological fracture (principal); I15.0 Renovascular hypertension; E78.5 Hyperlipidemia, unspecified; F41.9 Anxiety disorder, unspecified; F43.10 Post-traumatic stress disorder, unspecified; F32.A Depression, unspecified
CPT/HCPCS: 99214

== ENCOUNTER 2024-01-02 10:36 | Outpatient (REF) | payer MEDICARE, SELFPAY ==
[2024-01-02 13:20] LABS: Appearance Urine Clear; Color Urine Yellow; Glucose Urine UA Negative (Negative); Leukocyte Esterase Urine Negative (Negative); Nitrite Urine Negative (Negative); Urine Blood Negative (Negative); Urine Ketones Negative (Negative); Urine Protein Negative (Neg-Trace)
[2024-01-02 13:28] LABS: MANUAL DIFF FLAG NO
[2024-01-02 13:51] LABS: Basophils Percent Auto 0.6 % (0-2); Eosinophils Absolute Auto 0.1 X10*3/uL (0.0-0.4); Eosinophils Percent Auto 1.5 % (0-4); Hematocrit 42.7 % (37.0-47.0); Hemoglobin 14.1 g/dl (12.0-16.0); Imm Gran Abs Auto 0.07 X10*3/uL (0.00-0.03); Imm Gran Pct Auto 1.1 % (0.0-0.4); Lymphocytes Absolute Auto 1.8 X10*3/uL (1.2-4.9); Lymphocytes Percent Auto 27.5 % (20-40); Mean Corpuscular Hemoglobin 30.1 pg (27.0-33.0); Mean Platelet Volume 10.9 fL (9.4-12.3); Monocytes Absolute Auto 0.6 X10*3/uL (0.1-1.2); Monocytes Percent Auto 9.3 % (2-11); Neutrophils Absolute Auto 3.9 x10*3/uL (2.0-8.3); Platelet Count 299 X10*3/uL (160-400); Red Blood Count 4.69 X10*6/uL (4.20-5.50); Red Cell Distribution Width 14.2 % (11.0-16.0); White Blood Count 6.5 X10*3/uL (4.8-10.8)
[2024-01-02 14:20] LABS: Alanine Aminotransferase 8 U/L (0-31); Albumin Level 4.3 g/dL (3.5-5.0); Alkaline Phosphatase 74 U/L (39-117); Anion Gap 13 (12-20); Aspartate Amino Transferase 16 U/L (5-31); Bilirubin Total 0.2 mg/dL (0.0-1.0); Blood Urea Nitrogen 16 mg/dL (9-16); Calcium 10.1 mg/dL (8.4-10.2); Carbon Dioxide 26 mmol/L (22-29); Chloride 106 mmol/L (96-108); Cholesterol 280 mg/dL (<200); Estimated Glomerular Filt Rate > 60; Glucose Fasting 91 mg/dL (60-99); HDL Cholesterol 58 mg/dL (>40); LDL Cholesterol Calculated 206 mg/dL (<100); Potassium 4.2 mmol/L (3.3-5.1); Sodium 141 mmol/L (135-145); Total Protein 7.3 g/dL (6.5-8.0); Triglycerides 84 mg/dL (<150)
[2024-01-02 14:23] LABS: TSH reflex Free T4 4.41 uIU/mL (0.32-4.0); Vitamin D 25-OH Total 55.5 ng/mL (>30)
[2024-01-02 14:33] LABS: Folate 5.1 ng/mL (> or = 4.0); Vitamin B12 224 pg/mL (200-900)
[2024-01-02 14:58] LABS: Free T4 (Free Thyroxine) 0.92 ng/dL (0.71-1.85)
[2024-01-08 15:58] LABS: Vitamin B6 5.4 ng/mL (2.1-21.7)
== END 2024-01-02 10:37 | disposition home or self-care (01) ==
LOC: HO.HMGCLDS 10:36
PROVIDERS: PCP Nurse Practitioner Family; Visit Provider Nurse Practitioner Family
DX: I15.0 Renovascular hypertension (principal); M81.0 Age-related osteoporosis without current pathological fracture; E78.5 Hyperlipidemia, unspecified
CPT/HCPCS: 36415; 80053; 80061; 81003; 82306; 82607; 82746; 84207; 84439; 84443; 85025

== ENCOUNTER 2024-01-28 01:59 | Emergency (ER) | payer MEDICARE, SELFPAY ==
--- NOTE | ~2024-01-28 | CT_ITS ---
EXAMINATION: CT ABDOMEN AND PELVIS WITHOUT CONTRAST CLINICAL INFORMATION: lower abd pain, N, v, diarrhea. COMPARISON: 02/03/2018 TECHNIQUE: Multidetector volumetric imaging was performed from the superior aspect of the liver through the pubic symphysis. Sagittal and coronal reformatted images were obtained on the technologist's workstation. This CT examination was performed using dose optimization techniques as appropriate, variously including the following: *Automated exposure control *Adjustment of mA and/or kV according to patient size (this includes techniques or standardized protocols for targeted exams where dose is matched to indication/reason for exam; i.e. extremities or head) *Use of iterative reconstruction technique DLP: 264 mGy-cm FINDINGS: LUNG BASES: The visualized lung bases are unremarkable. LIVER, GALLBLADDER, AND BILIARY TREE: The liver is normal in size, shape, and attenuation. No focal hepatic lesion or biliary ductal dilatation is present. The gallbladder is unremarkable with no evidence of radiopaque gallstones, gallbladder wall thickening, or obvious pericholecystic inflammatory changes. PANCREAS: Unremarkable. SPLEEN: Unremarkable. ADRENAL GLANDS: Unremarkable. KIDNEYS AND URETERS: The kidneys are normal in size, shape, and attenuation. A small 2 mm calcification in the right renal sinus is again noted, likely corresponding to a vascular calcification. No hydronephrosis, hydroureter, or calculi seen. No perinephric stranding. BLADDER: Unremarkable. GASTROINTESTINAL TRACT: Within the central pelvis, there are multiple loops of small bowel with circumferential wall thickening and associated mesenteric edema. A few loops of borderline dilated small bowel are present to proximal to this, measuring up to 3.1 cm in diameter, potentially corresponding to a mild ileus. Appendix is normal. Moderate sigmoid diverticulosis and more mild diverticulosis in the remainder of the colon. No intraperitoneal free air. No pneumatosis. There is a small volume of intraperitoneal free fluid, most notably in the pelvis and within the perisplenic and perihepatic regions. ABDOMINAL WALL: Tiny fat-containing umbilical hernia. No bowel involvement. There is a small left inguinal hernia which contains a small knuckle from the adjacent small bowel. LYMPH NODES: Normal. VASCULAR: Atherosclerotic calcifications are present in the abdominal aorta and iliac arteries. No aneurysmal dilatation. PELVIC VISCERA: The uterus and adnexa are unremarkable. OSSEOUS STRUCTURES: Grade 1 anterolisthesis of L5 on S1. Facet arthropathy and degenerative disc disease most notable at L5-S1. No acute osseous findings. Moderate to severe osteoarthritis in the right hip and more mild to moderate osteoarthritis in the left hip and bilateral SI joints. Bones are osteopenic. CT/CT abdomen pelvis wo IV con IMPRESSION: 1. Multiple loops of small bowel with circumferential wall thickening and associated mesenteric edema in the central pelvis, most consistent with an infectious or inflammatory enteritis. Ischemic enteritis is also on the differential given the significant atherosclerotic disease in the abdominal aorta and branch vessels, though no pneumatosis is identified. 2. Small volume of intraperitoneal free fluid. 3. Colonic diverticulosis without evidence of acute diverticulitis. 4. Small left inguinal hernia containing a small knuckle of small bowel. No evidence of bowel obstruction. Fleischner guidelines were followed.
[2024-01-28 02:04] VITALS: BP 122/76; PULSE 74; RESP 20; TEMP 36.4; O2SAT 97; BMI 19.5
[2024-01-28 02:20] LABS: MANUAL DIFF FLAG NO
[2024-01-28 02:23] LABS: Basophils Absolute Auto 0.1 X10*3/uL (0.0-0.2); Basophils Percent Auto 0.5 % (0-2); Eosinophils Absolute Auto 0.1 X10*3/uL (0.0-0.4); Eosinophils Percent Auto 1.1 % (0-4); Hematocrit 46.5 % (37.0-47.0); Hemoglobin 16.1 g/dl (12.0-16.0); Imm Gran Abs Auto 0.01 X10*3/uL (0.00-0.03); Imm Gran Pct Auto 0.1 % (0.0-0.4); Lymphocytes Percent Auto 19.4 % (20-40); Mean Corpuscular HGB Conc 34.6 g/dl (31.0-35.0); Mean Corpuscular Hemoglobin 30.8 pg (27.0-33.0); Mean Corpuscular Volume 89.1 fL (80.0-98.0); Mean Platelet Volume 10.6 fL (9.4-12.3); Monocytes Absolute Auto 0.6 X10*3/uL (0.1-1.2); Neutrophils Absolute Auto 7.6 x10*3/uL (2.0-8.3); Neutrophils Percent Auto 72.9 % (45-73); Platelet Count 307 X10*3/uL (160-400); Red Blood Count 5.22 X10*6/uL (4.20-5.50); Red Cell Distribution Width 14.4 % (11.0-16.0); White Blood Count 10.5 X10*3/uL (4.8-10.8)
[2024-01-28 02:36] LABS: Alanine Aminotransferase 7 U/L (0-31); Albumin Level 4.1 g/dL (3.5-5.0); Alkaline Phosphatase 72 U/L (39-117); Anion Gap 16 (12-20); Aspartate Amino Transferase 15 U/L (5-31); Bilirubin Total 0.5 mg/dL (0.0-1.0); Blood Urea Nitrogen 14 mg/dL (9-16); Calcium 9.9 mg/dL (8.4-10.2); Carbon Dioxide 27 mmol/L (22-29); Chloride 103 mmol/L (96-108); Creatinine Clr Calc Pharmacy 44.6; Estimated Glomerular Filt Rate > 60; Glucose Random 115 mg/dL (60-115); Lipase 16 U/L (8-78); Potassium 4.1 mmol/L (3.3-5.1); Sodium 142 mmol/L (135-145)
[2024-01-28 02:58] LABS: Appearance Urine Hazy; Color Urine DK YELLOW; Glucose Urine UA Negative (Negative); Leukocyte Esterase Urine Negative (Negative); Nitrite Urine Negative (Negative); PH 5.5 (5.0-9.0); Specific Gravity - Urine >= 1.030 (1.005-1.025); UMIC TRIGGER UACC YES; Urine Blood Trace (Negative); Urine Ketones 15 mg/dL (Negative); Urine Protein 30 (1+) mg/dL (Neg-Trace)
--- NOTE | 2024-01-28 03:19 | ED.ABDPAIN ---
HPI - Abdominal Pain General Chief Complaint: Abdominal Pain Stated Complaint: stomach pain Time Seen by Provider: 01/28/24 03:06 Source: patient Mode of arrival: ambulatory Limitations: no limitations History of Present Illness ED Provider: DR. Marroquin HPI narrative: 68-year-old female presented for evaluation of abdominal pain that started since yesterday morning, pain has been constant, pain is associated with nausea, vomiting, nonbloody watery diarrhea, and decreased appetite. Pain is constant since yesterday but waxing and waning. Last BM was at 01:00 with nonbloody watery diarrhea, no dysuria, no frequency urination, no fever, no chills. No exposure to a bad food, no sick contacts. Past surgical history significant for femoral hernia repair. Related Data Home Medications ?Medication ?Instructions ?Recorded ?Confirmed amlodipine 5 mg tablet 0.5 tab PO QAM 07/17/20 01/12/24 lisinopril 40 mg tablet 1 tab PO DAILY 07/17/20 01/12/24 Previous Rx's ?Medication ?Instructions ?Recorded calcium carbonate 600 mg-vitamin 1 tab PO BID 30 days #60 tabs 09/24/22 D3 10 mcg (400 unit) tablet (Calcium with Vitamin D) diazepam 5 mg tablet 5 mg PO BID PRN Anxiety 30 days 07/07/23 #60 tabs atenolol 25 mg tablet 37.5 mg (1.5 x 25 mg) PO DAILY 30 08/29/23 days #45 tabs levothyroxine 25 mcg tablet 25 mcg PO DAILY #90 tabs 09/16/23 omeprazole 20 mg capsule,delayed 20 mg PO DAILY #90 caps 01/22/24 release Allergies Allergy/AdvReac Type Severity Reaction Status Date / Time varenicline [From CHANTIX] Allergy Severe HIVES Verified 01/28/24 02:06 erythromycin base Allergy Intermediate RASH Verified 01/28/24 02:06 [ERYTHROMYCIN BASE] Macrolide Antibiotics Allergy Intermediate RASH Verified 01/28/24 02:06 [MACROLIDE ANTIBIOTICS] Sulfa (Sulfonamide Allergy Intermediate RASH Verified 01/28/24 02:06 Antibiotics) [SULFA (SULFONAMIDE ANTIBIOTICS)] amoxicillin Allergy Unknown Unknown Verified 01/28/24 02:06 barium sulfate Allergy Unknown Hives Verified 01/28/24 02:06 penicillin V Allergy Unknown Rash Verified 01/28/24 02:06 bupropion [From Wellbutrin] AdvReac Intermediate Tinnitus Verified 01/28/24 02:06 sertraline [From Zoloft] AdvReac Mild Insomnia Verified 01/28/24 02:06 citalopram AdvReac Unknown Burning Verified 01/28/24 02:06 sensation all over body Erythromycin Allergy Unknown Unsure Uncoded 01/28/24 02:06 Sulfa drugs Allergy Unknown Unsure Uncoded 01/28/24 02:06 sertraline AdvReac Insomnia Uncoded 01/28/24 02:06 Review of Systems Review of Systems All other systems are reviewed and are negative Constitutional: Reports as per HPI and Reports no additional constitutional complaints Eyes: Reports as per HPI and Reports no additional eye complaints Reports system reviewed and no additional complaints, except as documented Cardiovascular: Reports as per HPI and Reports no additional cardiovascular complaints Respiratory: Reports as per HPI and Reports no additional respiratory complaints Gastrointestinal: Reports as per HPI and Reports no additional gastrointestinal complaints Genitourinary: Reports no additional female genitourinary complaints Musculoskeletal: Reports no additional musculoskeletal complaints Skin/Breast: Reports system reviewed and no additional complaints, except as docu Psychiatric: Reports no additional psychiatric complaints Endocrine: Reports no additional endocrine complaints Hematologic/Lymphatic: Reports no additional hematologic/lymphatic complaints Allergic/Immunologic: Reports no additional allergic/immunologic complaints Reports system reviewed and no additional complaints, except as documented and Reports Abnormal speech present [facility] Past Medical History Medical History Renal artery stenosis Hypothalamic hypothyroidism Hypertension Surgical History Hx of lumpectomy Femoral hernia of right side History of tonsillectomy Family History Family History Family/Other Brain cancer Social History Social History Household Members: None Housing: House Are you a primary zoo caretaker to a significant other at home: No Do you presently have visiting nurse or other home services: No Alcohol intake: current Alcohol intake frequency: holidays/special occasions only Patient Tobacco Use Status: Current everyday Tobacco user Tobacco use type: Cigarette Cigarette Packs Per Day: 1 e-Cigarette/Vaping Use: Never Used Second Hand Smoke Exposure: No Substance Use Type: Marijuana Advance Directives: No Advance Directives Information Provided: No Do you have a plan to hurt others: No Plan service: No Current occupational status: employed 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 Blood pressure elevated. Heart rate normal. Respiratory rate normal. Temperature normal. Oxygen saturation normal. Appearance: Alert. Oriented X3. No acute distress. Head: Normal external exam. Normocephalic. Atraumatic. No Menjivar signs noted. No raccoon eyes noted Eyes: PERRLA. EOMI. Conjunctiva and sclera normal. Eyelids normal. ENT: TM's Normal. Pharynx normal. Uvula midline. Moist mucous membranes. No trismus noted. No drooling noted. No muffled voice noted. Neck: Normal inspection. Neck supple. FROM. No adenopathy. Thyroid Normal. No meningeal signs. No neck mass noted. CVS: Normal heart rate and rhythm. Heart sound normal. No murmurs noted. Pulses normal throughout. Respiratory: No respiratory distress. Painless inspiration. Breath sounds normal. No wheezes/rales/rhonchi noted. Chest nontender. No accessory muscle usage noted or decreased air movement noted. Abdomen: Soft , mild left lower quadrant tenderness, no rebound tenderness, no guarding. Bowel sounds normal in all 4 quadrants. No distention noted. No organomegaly noted. No visible injury noted. Back: No CVA tenderness. Full range of motion noted. Skin: Skin warm and dry. Normal skin color. Normal skin turgor. No rashes/lesions/lacerations noted. Extremities: No lower extremity edema. Extremities exhibit normal range of motion. Extremities nontender. Neuro: Oriented X 3. Cranial nerve exam: II-XII are grossly intact No motor deficit. No sensory deficit. Reflexes normal. Course Reevaluation(s) Reevaluation #1: Able to tolerate p.o. intake with no nausea vomiting, patient feels much improved, decreased abdominal pain, normal WBCs, CT is consistent with enteritis, patient feels better and looks better with no WBCs to indicate ischemic enteritis. Follow-up with GI. Patient was instructed to return to the ED if worsening of abdominal pain or blood in the stool or urine. Time: 06:44 Medical Decision Making Differential Diagnosis Differential Diagnoses: The differential diagnosis associated with the presentation includes (Gastroenteritis, gastritis, pancreatitis, acute appendicitis, diverticulitis, acute cholecystitis, acute anemia, electrolyte derangement.) Admission/Observation Consideration of admission/observation: Escalation of care including admission/observation considered Lab Data MDM Lab Attestation statement: I reviewed the patient's lab results. 01/28/24 02:15 01/28/24 02:15 Labs: Lab Results 01/28/24 01/28/24 Range/Units 02:15 02:45 WBC 10.5 (4.8-10.8) X10*3/uL RBC 5.22 (4.20-5.50) X10*6/uL Hgb 16.1 H (12.0-16.0) g/dl Hct 46.5 (37.0-47.0) % MCV 89.1 (80.0-98.0) fL MCH 30.8 (27.0-33.0) pg MCHC 34.6 (31.0-35.0) g/dl RDW 14.4 (11.0-16.0) % Plt Count 307 (160-400) X10*3/uL MPV 10.6 (9.4-12.3) fL Immature Gran % (Auto) 0.1 (0.0-0.4) % Neut % (Auto) 72.9 (45-73) % Lymph % (Auto) 19.4 L (20-40) % [place] % (Auto) 6.0 (2-11) % Eos % (Auto) 1.1 (0-4) % Baso % (Auto) 0.5 (0-2) % Lymph # (Auto) 2.0 (1.2-4.9) X10*3/uL [place] # (Auto) 0.6 (0.1-1.2) X10*3/uL Eos # (Auto) 0.1 (0.0-0.4) X10*3/uL Baso # (Auto) 0.1 (0.0-0.2) X10*3/uL Abs Immat Gran (auto) 0.01 (0.00-0.03) X10*3/uL Absolute Neuts (auto) 7.6 (2.0-8.3) x10*3/uL Absolute Nucleated RBC 0.000 (0.0-0.012) X10*3/uL Nucleated RBC % (auto) 0.0 (0.0-0.2) /100WBC Sodium 142 (135-145) mmol/L Potassium 4.1 (3.3-5.1) mmol/L Chloride 103 (96-108) mmol/L Carbon Dioxide 27 (22-29) mmol/L Anion Gap 16 (12-20) BUN 14 (9-16) mg/dL Creatinine 0.81 (0.5-1.4) mg/dL Estim Creat Clear Calc 44.6 Estimated GFR > 60 Random Glucose 115 (60-115) mg/dL Calcium 9.9 (8.4-10.2) mg/dL Total Bilirubin 0.5 (0.0-1.0) mg/dL AST 15 (5-31) U/L ALT 7 (0-31) U/L Alkaline Phosphatase 72 (39-117) U/L Total Protein 7.0 (6.5-8.0) g/dL Albumin 4.1 (3.5-5.0) g/dL Lipase 16 (8-78) U/L Urine Color DK YELLOW Urine Appearance Hazy Urine pH 5.5 (5.0-9.0) Ur Specific [place] >= 1.030 H (1.005-1.025) Urine Protein 30 (1+) H (Neg-Trace) mg/dL Urine Glucose (UA) Negative (Negative) mg/dL Urine Ketones 15 (Negative) mg/dL Urine Blood Trace (Negative) Urine Nitrite Negative (Negative) Ur Leukocyte Esterase Negative (Negative) Urine RBC 6-10 H (0-2) /HPF Urine WBC 11-20 H (0-5) /HPF Ur Squamous Epith Cells 3-5 (0-2) /HPF Other Crystals Present Urine Bacteria 1+ (None Seen) Hyaline Casts 0-2 (0-2) /LPF Independent Interpretation I performed an independent interpretation of an: CT Scan (Abdomen pelvis:1. Multiple loops of small bowel with circumferential wall thickening and associated mesenteric edema in the central pelvis, most consistent with an infectious or inflammatory enteritis. Ischemic enteritis is also on the differential given the significant atherosclerotic disease in t) Radiology Impression Discussion of test interpretation with radiology: I have reviewed the radiologist's reading. Medications Administered Discontinued Medications Generic Name Dose Route Start Last Admin Trade Name Freq PRN Reason Stop Dose Admin Famotidine 20 mg 01/28/24 03:18 01/28/24 03:45 Famotidine/Pf 20 Mg/2 Ml Vial IVPUSH 01/28/24 03:19 20 mg ONCE ONE Administration Sodium Chloride 1,000 mls @ 999 mls/hr 01/28/24 03:18 01/28/24 05:19 Ns IV 01/28/24 04:18 Infused .Q1H1M ONE Infusion Ondansetron HCl 4 mg 01/28/24 03:18 01/28/24 03:45 Ondansetron Hcl 4 Mg/2 Ml Vial IVPUSH 01/28/24 03:19 4 mg ONCE ONE Administration Discharge Plan Discharge Clinical Impression: Gastroenteritis Patient Disposition: Home, Self-Care Instructions: Gastroenteritis (ED) Prescriptions: No Action calcium carbonate-vitamin D3 [Calcium with Vitamin D] 600 mg-10 mcg (400 unit) tablet 1 tab PO BID 30 Days Qty: 60 2RF diazepam 5 mg tablet 5 mg PO BID PRN (Reason: Anxiety) 30 Days Qty: 60 1RF atenolol 25 mg tablet 37.5 mg PO DAILY 30 Days Qty: 45 11RF levothyroxine 25 mcg tablet 25 mcg PO DAILY Qty: 90 0RF omeprazole 20 mg capsule,delayed release(DR/EC) 20 mg PO DAILY Qty: 90 5RF amlodipine 5 mg tablet 0.5 tab PO QAM lisinopril 40 mg tablet 1 tab PO DAILY Referrals: Ken Caba MD [Physician] - Print Language: Martiniquais
[2024-01-28 03:20] LABS: Bacteria Urine 1+ (None Seen); Hyaline Casts Urine 0-2 /LPF (0-2); Other Crystals Urine Present; UACC Culture Trigger YES
[2024-01-28] MEDS: 0.9 % Sodium Chloride 1,000 ML 999 ML IV (03:45)
[2024-01-28] MEDS: ondansetron HCL 4 MG/2 ML VIAL IVPUSH (03:45)
[2024-01-28] MEDS: Famotidine/PF 20 MG/2 ML VIAL IVPUSH (03:45)
[2024-01-28 04:46] VITALS: BP 139/61; PULSE 62; RESP 16; TEMP 36.8; O2SAT 94
[2024-01-28 05:19] VITALS: BP 146/86; PULSE 83; RESP 18; TEMP 36.6; O2SAT 97
[2024-01-28 06:57] VITALS: BP 131/107; PULSE 64; RESP 14; TEMP 36.7; O2SAT 95
[2024-01-28 06:58] VITALS: BP 131/107; PULSE 64; RESP 14; TEMP 36.7; O2SAT 95
== END 2024-01-28 06:59 | disposition home or self-care (01) ==
PROVIDERS: Emergency Provider Emergency Medicine
DX: K52.9 Noninfective gastroenteritis and colitis, unspecified (principal); R11.2 Nausea with vomiting, unspecified; I10 Essential (primary) hypertension; E03.9 Hypothyroidism, unspecified; R10.30 Lower abdominal pain, unspecified
CPT/HCPCS: 36415; 74176; 80053; 81001; 83690; 85025; 87086; 96361; 96374; 96375; 99284; J2405

== ENCOUNTER 2024-01-30 05:29 | Emergency (ER) | payer MEDICARE, SELFPAY ==
--- NOTE | ~2024-01-30 | CT_ITS ---
EXAMINATION: CT ABDOMEN AND PELVIS WITH CONTRAST CLINICAL INFORMATION: Left upper quadrant pain. COMPARISON: 01/28/2024 TECHNIQUE: Multidetector volumetric images were obtained from the superior aspect of the liver through the pubic symphysis following administration 85 mL of Omnipaque 350 intravenous contrast. Sagittal and coronal reformatted images were obtained on the technologist's workstation. Oral contrast: No This CT examination was performed using dose optimization techniques as appropriate, variously including the following: *Automated exposure control *Adjustment of mA and/or kV according to patient size (this includes techniques or standardized protocols for targeted exams where dose is matched to indication/reason for exam; i.e. extremities or head) *Use of iterative reconstruction technique DLP: 267 mGy-cm FINDINGS: LUNG BASES: Trace pericardial effusion. LIVER, GALLBLADDER, AND BILIARY TREE: The liver is normal in size and contour. No focal hepatic lesion or biliary ductal dilatation is present. The gallbladder is contracted. PANCREAS: No ductal dilatation. SPLEEN: Not enlarged. ADRENAL GLANDS: No adrenal mass. KIDNEYS AND URETERS: The kidneys are symmetric in size and enhancement. No hydronephrosis. No perinephric stranding. BLADDER: Unremarkable. GASTROINTESTINAL TRACT: There are dilated loops of mid small bowel measuring up to 3.5 cm with interloop fluid. The transition appears to be a thick walled segment of distal small bowel with mucosal hyperenhancement in the left lower quadrant. There is distal small bowel wall thickening. Diverticular disease of the colon. Possible gastric wall thickening. ABDOMINAL WALL: Small left inguinal hernia unchanged from prior. LYMPH NODES: No bulky lymphadenopathy. VASCULAR: Marked atherosclerotic changes of the abdominal aorta and major branch vessels. No abdominal aortic aneurysm. PELVIC VISCERA: Small ascites in the abdomen and pelvis. Left pelvic venous congestion. OSSEOUS STRUCTURES: No destructive bone lesions. CT/CT abdomen pelvis w IV con IMPRESSION: Abnormal dilatation of mid small bowel measuring up to 3.5 cm with interloop fluid. The transition appears to be at the level of a thick walled segment of distal small bowel demonstrating mucosal hyperenhancement in the left lower quadrant. Beyond this the distal small bowel loops are thick walled with mucosal edema. Infectious and inflammatory etiologies of enteritis should be considered. There is concern for progression of small bowel obstruction. Small ascites.
[2024-01-30 05:45] VITALS: BP 141/77; PULSE 90; RESP 16; TEMP 36.9; O2SAT 96; BMI 29.5
[2024-01-30 05:59] LABS: MANUAL DIFF FLAG NO
[2024-01-30 06:01] LABS: Basophils Percent Auto 0.3 % (0-2); Eosinophils Absolute Auto 0.1 X10*3/uL (0.0-0.4); Eosinophils Percent Auto 0.5 % (0-4); Hematocrit 41.4 % (37.0-47.0); Hemoglobin 13.9 g/dl (12.0-16.0); Imm Gran Abs Auto 0.02 X10*3/uL (0.00-0.03); Imm Gran Pct Auto 0.2 % (0.0-0.4); Lymphocytes Absolute Auto 1.6 X10*3/uL (1.2-4.9); Lymphocytes Percent Auto 16.7 % (20-40); Mean Corpuscular HGB Conc 33.6 g/dl (31.0-35.0); Mean Corpuscular Hemoglobin 30.5 pg (27.0-33.0); Mean Corpuscular Volume 90.8 fL (80.0-98.0); Mean Platelet Volume 10.5 fL (9.4-12.3); Monocytes Absolute Auto 0.9 X10*3/uL (0.1-1.2); Monocytes Percent Auto 10.1 % (2-11); Neutrophils Absolute Auto 6.7 x10*3/uL (2.0-8.3); Neutrophils Percent Auto 72.2 % (45-73); Platelet Count 269 X10*3/uL (160-400); Red Blood Count 4.56 X10*6/uL (4.20-5.50); Red Cell Distribution Width 14.2 % (11.0-16.0); White Blood Count 9.3 X10*3/uL (4.8-10.8)
[2024-01-30 06:28] LABS: Anion Gap 19 (12-20); Blood Urea Nitrogen 13 mg/dL (9-16); Calcium 9.8 mg/dL (8.4-10.2); Carbon Dioxide 20 mmol/L (22-29); Chloride 103 mmol/L (96-108); Creatinine Clr Calc Pharmacy 29.9; Estimated Glomerular Filt Rate > 60; Glucose Random 102 mg/dL (60-115); Sodium 138 mmol/L (135-145)
--- NOTE | 2024-01-30 06:31 | ED_ITS ---
HPI - General Adult General Chief complaint: Abdominal Pain Stated complaint: stomach pain Time Seen by Provider: 01/30/24 06:31 Source: patient Mode of arrival: ambulatory Limitations: no limitations History of Present Illness ED Provider: michelle CARCAMO narrative: Patient is a 68-year-old female with history of breast CA, renal artery stenosis, hypothalamic hypothyroidism, HTN presenting to the emergency department with complaint of constant waxing and waning abdominal pain since Friday with associated nausea and diarrhea. Has tried vomiting but unable to. Denies any hematochezia. Decreased PO intake. Friday had one piece of dry toast, yesterday a dry baked potato. Today diarrhea increased in frequency again. Seen in this ED Friday and diagnosed with gastroenteritis. Tolerating PO fluids without difficulty. Denies any fever since onset of symptoms. Denies urinary symptoms. Denies radiation of pain to back. Denies chest pain, cough, dyspnea. MD complaint: abdominal pain, diarrhea Onset (ago): day(s) Location: abdomen Radiation: non-radiation Severity: severe Pain Consistency: colicky Associated symptoms: nausea/vomiting and other (diarrhea) Treatments prior to arrival: none Related Data Home Medications ?Medication ?Instructions ?Recorded ?Confirmed amlodipine 5 mg tablet 0.5 tab PO QAM 07/17/20 01/12/24 lisinopril 40 mg tablet 1 tab PO DAILY 07/17/20 01/12/24 Previous Rx's ?Medication ?Instructions ?Recorded calcium carbonate 600 mg-vitamin 1 tab PO BID 30 days #60 tabs 09/24/22 D3 10 mcg (400 unit) tablet (Calcium with Vitamin D) diazepam 5 mg tablet 5 mg PO BID PRN Anxiety 30 days 07/07/23 #60 tabs atenolol 25 mg tablet 37.5 mg (1.5 x 25 mg) PO DAILY 30 08/29/23 days #45 tabs levothyroxine 25 mcg tablet 25 mcg PO DAILY #90 tabs 09/16/23 omeprazole 20 mg capsule,delayed 20 mg PO DAILY #90 caps 01/22/24 release dicyclomine 10 mg capsule 10 mg PO TID #14 caps 01/30/24 ondansetron 4 mg disintegrating 4 mg PO Q8H PRN nausea and 01/30/24 tablet vomiting #10 tabs Allergies Allergy/AdvReac Type Severity Reaction Status Date / Time varenicline [From CHANTIX] Allergy Severe HIVES Verified 01/30/24 05:46 erythromycin base Allergy Intermediate RASH Verified 01/30/24 05:46 [ERYTHROMYCIN BASE] Macrolide Antibiotics Allergy Intermediate RASH Verified 01/30/24 05:46 [MACROLIDE ANTIBIOTICS] Sulfa (Sulfonamide Allergy Intermediate RASH Verified 01/30/24 05:46 Antibiotics) [SULFA (SULFONAMIDE ANTIBIOTICS)] amoxicillin Allergy Unknown Unknown Verified 01/30/24 05:46 barium sulfate Allergy Unknown Hives Verified 01/30/24 05:46 penicillin V Allergy Unknown Rash Verified 01/30/24 05:46 bupropion [From Wellbutrin] AdvReac Intermediate Tinnitus Verified 01/30/24 05:46 sertraline [From Zoloft] AdvReac Mild Insomnia Verified 01/30/24 05:46 citalopram AdvReac Unknown Burning Verified 01/30/24 05:46 sensation all over body Erythromycin Allergy Unknown Unsure Uncoded 01/28/24 02:06 Sulfa drugs Allergy Unknown Unsure Uncoded 01/28/24 02:06 sertraline AdvReac Insomnia Uncoded 01/28/24 02:06 Review of Systems 2 Review of Systems: As per HPI. Yes all other systems are reviewed and are negative Constitutional: Constitutional: Reports as per HPI PMFSH Past Medical History Medical History Renal artery stenosis Hypothalamic hypothyroidism Hypertension Surgical History Hx of lumpectomy Femoral hernia of right side History of tonsillectomy Family History Family History Family/Other Brain cancer Social History Social History Household Members: None Housing: House Are you a primary animal care taker to a significant other at home: No Do you presently have visiting nurse or other home services: No Alcohol intake: current Alcohol intake frequency: holidays/special occasions only Patient Tobacco Use Status: Current everyday Tobacco user Tobacco use type: Cigarette Cigarette Packs Per Day: 1 Smoked in Last 30 Days: No e-Cigarette/Vaping Use: Never Used Second Hand Smoke Exposure: No Use of substances other than those prescribed or required for medical reasons: No Substance Use Type: Marijuana Advance Directives: No Advance Directives Information Provided: Yes Do you have a plan to hurt others: No Plan service: No Current occupational status: employed 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 Current occupational exposures/hazards: No Cognitive needs: No Hearing needs: Yes Vision needs: No Physical Exam ED Vital Signs: Vital Signs - 24 hr 01/30/24 05:45 01/30/24 08:07 01/30/24 10:42 Temperature 98.4 F 98.5 F 98.2 F Pulse Rate 90 85 89 Respiratory Rate 16 16 16 Blood Pressure 141/77 H 117/71 132/67 Pulse Oximetry 96 95 93 Oxygen Delivery Method Room Air Room Air Room Air 01/30/24 13:13 Temperature 98.4 F Pulse Rate 91 Respiratory Rate 20 Blood Pressure 121/70 Pulse Oximetry 97 Oxygen Delivery Method Room Air BMI result Body Mass Index 29.5 Vital signs have been reviewed and appear to be correct. Blood pressure normal. Heart rate normal. Respiratory rate normal. Temperature normal. Oxygen saturation normal. Const General: cooperative, healthy appearing and no acute distress Orientation/consciousness: oriented to person, oriented to place, oriented to time and patient oriented x3 Limitations: no limitations HENMT Head: Yes normocephalic and Yes atraumatic Ears: external ears normal General nose exam: Normal external nose present Face and sinus: Yes face symmetric Mouth: oropharynx normal and moist mucous membranes Throat: Yes uvula midline Eyes Pupils: Equal, round and reactive pupils present Neck Neck: Yes normal visual inspection and Yes supple Resp Effort & Inspection: normal respiratory effort and able to speak in complete sentences Auscultation: clear to auscultation bilaterally Cardio Rate: regular rate Rhythm: regular rhythm Heart sounds: S1 normal heart sound present and S2 normal heart sound present GI Palpation (GI): Soft to palpation, Tenderness to palpation present (GI) in the LLQ and in the LUQ, no guarding and No Rebound tenderness present Auscultation: normoactive bowel sounds General: Yes no CVA tenderness Back/Spine/Pelvis Back: no CVA tenderness Skin General skin exam: elasticity normal and turgor normal Neuro General: oriented to person, oriented to place, oriented to time, patient oriented x3, moves all extremities, no focal motor deficits and CN's II-XI intact bilaterally Cranial nerves: Yes Equal, round and reactive pupils present Cognition (Neuro): normal cognition Extrem General: Yes full ROM, Yes no pedal edema and Yes no calf tenderness Psych Mental Status: mental status grossly normal Affect: normal affect Thought process: Normal thought process present Medications Administered Discontinued Medications Generic Name Dose Route Start Last Admin Trade Name Carole PRN Reason Stop Dose Admin Ondansetron HCl 4 mg 01/30/24 06:51 01/30/24 07:05 Ondansetron Odt 4 Mg Tab.Rapdis TRANSLINGU 01/30/24 06:52 4 mg ONCE ONE Administration Medical Decision Making Medical Decision Making [facility] Narrative: Patient is a 68-year-old female with history of renal artery stenosis, hypothalamic hypothyroidism, HTN presenting to the emergency department with complaint of constant waxing and waning abdominal pain since Friday with associated nausea and diarrhea. On exam patient is awake, A+Ox3, VS WNL, afebrile, normal neurological exam without focal deficits, physical exam findings as above. Given reported symptoms and physical exam findings, initial differential includes gastroenteritis, gastritis, pancreatitis, appendicitis, diverticulitis, cholecystitis, anemia, electrolyte abnormality, dehydration. Labs notable for leukocytosis, no anemia, no significant electrolyte abnormalities, no evidence of NIKKI. Urinalysis notable for 1+ leukocytes, negative nitrites, no bacteria, do not suspect UTI. CT notable for dilation of mid small bowel with interloop fluid, bowel wall thickening concerning for progressing SBO, small amount of ascites. My interpretation is in agreement with the radiologist's interpretation. Contacted Dr. Cabrera who brenna be down to assess patient. After evaluation and review of CT, Dr. Cabrera feels symptoms are due to gastroenteritis. Plan discussed with patient. Will send prescription for zofran, bentyl. Advised OTC Immodium. Will refer to GI for any ongoing symptoms. Return precautions discussed. Patient verbalized understanding of and agreement with plan. Differential Diagnosis Differential Diagnoses: The differential diagnosis associated with the presentation includes as per [facility] Admission/Observation Consideration of admission/observation: Escalation of care including admission/observation considered Patient would have been admitted to the hospital had their work up had any findings where hospital admission was appropriate and their clinical presentation warranted hospital admission. Consult Healthcare Provider Management of the patient was discussed with: Client Support Manager (Dr. Cabrera) Lab Data [facility] Lab Attestation statement: I reviewed the patient's lab results. As per [facility] 01/30/24 05:55 01/30/24 05:55 Labs: Lab Results 01/30/24 01/30/24 01/30/24 Range/Units 05:55 07:19 08:04 WBC 9.3 (4.8-10.8) X10*3/uL RBC 4.56 (4.20-5.50) X10*6/uL Hgb 13.9 (12.0-16.0) g/dl Hct 41.4 (37.0-47.0) % MCV 90.8 (80.0-98.0) fL MCH 30.5 (27.0-33.0) pg MCHC 33.6 (31.0-35.0) g/dl RDW 14.2 (11.0-16.0) % Plt Count 269 (160-400) X10*3/uL MPV 10.5 (9.4-12.3) fL Immature Gran % (Auto) 0.2 (0.0-0.4) % Neut % (Auto) 72.2 (45-73) % Lymph % (Auto) 16.7 L (20-40) % [place] % (Auto) 10.1 (2-11) % Eos % (Auto) 0.5 (0-4) % Baso % (Auto) 0.3 (0-2) % Lymph # (Auto) 1.6 (1.2-4.9) X10*3/uL [place] # (Auto) 0.9 (0.1-1.2) X10*3/uL Eos # (Auto) 0.1 (0.0-0.4) X10*3/uL Baso # (Auto) 0.0 (0.0-0.2) X10*3/uL Abs Immat Gran (auto) 0.02 (0.00-0.03) X10*3/uL Absolute Neuts (auto) 6.7 (2.0-8.3) x10*3/uL Absolute Nucleated RBC 0.000 (0.0-0.012) X10*3/uL Nucleated RBC % (auto) 0.0 (0.0-0.2) /100WBC Sodium 138 (135-145) mmol/L Potassium 4.0 (3.3-5.1) mmol/L Chloride 103 (96-108) mmol/L Carbon Dioxide 20 L (22-29) mmol/L Anion Gap 19 (12-20) BUN 13 (9-16) mg/dL Creatinine 0.79 (0.5-1.4) mg/dL Estim Creat Clear Calc 29.9 Estimated GFR > 60 Random Glucose 102 (60-115) mg/dL Calcium 9.8 (8.4-10.2) mg/dL Magnesium 1.8 (1.6-2.6) mg/dL Total Bilirubin 0.5 (0.0-1.0) mg/dL Direct Bilirubin 0.2 (0.0-0.5) mg/dL AST 16 (5-31) U/L ALT 7 (0-31) U/L Alkaline Phosphatase 67 (39-117) U/L Total Protein 6.8 (6.5-8.0) g/dL Albumin 4.0 (3.5-5.0) g/dL Amylase 32 (28-100) U/L Lipase 18 (8-78) U/L Urine Color Dark Yellow Urine Appearance Clear Urine pH 5.5 (5.0-9.0) Ur Specific [place] 1.020 (1.005-1.025) Urine Protein Trace (Neg-Trace) mg/dL Urine Glucose (UA) Negative (Negative) mg/dL Urine Ketones 80 (Negative) mg/dL Urine Blood Trace H (Negative) Urine Nitrite Negative (Negative) Ur Leukocyte Esterase Small (1+) H (Negative) Urine RBC 0-2 (0-2) /HPF Urine WBC 0-5 (0-5) /HPF Ur Squamous Epith Cells 0-2 (0-2) /HPF Urine Bacteria None Seen (None Seen) Hyaline Casts 0-2 (0-2) /LPF Stl C. cayetanensis PCR Cancelled Stool Rotavirus A PCR Cancelled Stl Adenov F 40/41 PCR Cancelled Stool Astrovirus (PCR) Cancelled Stool Campylobacter PCR Cancelled Stool Cryptosporidium PCR Cancelled Stl Sh Tox Pr E STEC PCR Cancelled Stool E coli O157 PCR Cancelled Stl Enterotoxigenic E PCR Cancelled Stool EPEC (PCR) Cancelled Stool EAEC (PCR) Cancelled Stl E. histolytica PCR Cancelled Stool Giardia Lamblia PCR Cancelled Stl P. shigelloides PCR Cancelled Stool Salmonella PCR Cancelled Stool Sapovirus (PCR) Cancelled Stl Shigella/EIEC PCR Cancelled St Y.enterocolitica PCR Cancelled Stool Vibrio (PCR) Cancelled Stl Vibrio cholerae PCR Cancelled Stl Norovirus GI/GII PCR Cancelled C. difficile Tox B Gene NEGATIVE (Negative) Independent Interpretation I performed an independent interpretation of an: CT Scan Radiology Impression Discussion of test interpretation with radiology: I have reviewed the radiologist's reading. Radiologist Impression: CT/CT abdomen pelvis w IV con IMPRESSION: Abnormal dilatation of mid small bowel measuring up to 3.5 cm with interloop fluid. The transition appears to be at the level of a thick walled segment of distal small bowel demonstrating mucosal hyperenhancement in the left lower quadrant. Beyond this the distal small bowel loops are thick walled with mucosal edema. Infectious and inflammatory etiologies of enteritis should be considered. There is concern for progression of small bowel obstruction. Small ascites. External Record Review External record reviewed: Inpatient record, Office record and Outpatient record Prescription Management I considered prescription management with: Other Discharge Plan Discharge Clinical Impression: Gastroenteritis Patient Disposition: Home, Self-Care Instructions: Gastroenteritis (DC), Acute Diarrhea (ED) Additional Instructions: You have been evaluated in the emergency department today for nausea, abdominal pain, and diarrhea. Your evaluation suggests that your symptoms are most likely due to a viral illness which will improve on it's own with rest and fluids. Remember to drink plenty of fluids at home. You are being prescribed ondansetron which you can use as per the prescription instructions for nausea. You are being prescribed dicyclomine for abdominal cramping. You can use over the counter Immodium for diarrhea. You should stick to a clear liquid diet until your symptoms improve, then progress to a bland diet, then back to your normal diet as tolerated. Please follow up with your primary care provider within two days. Return to the emergency department if you experience worsening or uncontrolled pain, inability to tolerate fluids by mouth, difficulty breathing, fevers 100.4? F or greater, recurrent vomiting, or any other concerning symptoms. Prescriptions: New ondansetron 4 mg tablet,disintegrating 4 mg PO Q8H PRN (Reason: nausea and vomiting) Qty: 10 0RF dicyclomine 10 mg capsule 10 mg PO TID Qty: 14 0RF No Action calcium carbonate-vitamin D3 [Calcium with Vitamin D] 600 mg-10 mcg (400 unit) tablet 1 tab PO BID 30 Days Qty: 60 2RF diazepam 5 mg tablet 5 mg PO BID PRN (Reason: Anxiety) 30 Days Qty: 60 1RF atenolol 25 mg tablet 37.5 mg PO DAILY 30 Days Qty: 45 11RF levothyroxine 25 mcg tablet 25 mcg PO DAILY Qty: 90 0RF omeprazole 20 mg capsule,delayed release(DR/EC) 20 mg PO DAILY Qty: 90 5RF amlodipine 5 mg tablet 0.5 tab PO QAM lisinopril 40 mg tablet 1 tab PO DAILY Referrals: [facility] [place] [facility] [Provider Group] Print Language: Yi
[2024-01-30] MEDS: Ondansetron ODT 4 MG TAB.RAPDIS TRANSLINGU (07:05)
--- NOTE | 2024-01-30 07:06 | PC.NURSE ---
this RN resumed care of pt at 0645. a&ox4. vss and up to date. pt presents to ED w/ n/v/d x friday. came in friday/had CT completed which was negative. pt represents w/ same sx. pt rating 10/10 diffuse abd pain/nausea. pt medicated per provider order. effectiveness pending. pt aware stool/urine sample is needed. no sob/wob noted. respirations even/unlabored. plan of care ongoing. call mcfadden placed within reach.
[2024-01-30 07:14] LABS: Alanine Aminotransferase 7 U/L (0-31); Alkaline Phosphatase 67 U/L (39-117); Aspartate Amino Transferase 16 U/L (5-31); Bilirubin Direct 0.2 mg/dL (0.0-0.5); Bilirubin Total 0.5 mg/dL (0.0-1.0); Lipase 18 U/L (8-78); Magnesium 1.8 mg/dL (1.6-2.6); Total Protein 6.8 g/dL (6.5-8.0)
[2024-01-30 07:25] LABS: Appearance Urine Clear; Color Urine Dark Yellow; Glucose Urine UA Negative (Negative); Leukocyte Esterase Urine Small (1+) (Negative); Nitrite Urine Negative (Negative); PH 5.5 (5.0-9.0); UMIC TRIGGER UACC YES; Urine Blood Trace (Negative); Urine Ketones 80 mg/dL (Negative); Urine Protein Trace mg/dL (Neg-Trace)
--- NOTE | 2024-01-30 07:29 | PC.NURSE ---
urine obtained/sent to lab. stool sample still needed. pt aware.
[2024-01-30 07:34] LABS: Bacteria Urine None Seen (None Seen); Hyaline Casts Urine 0-2 /LPF (0-2); RBC Urine 0-2 /HPF (0-2); Squamous Epithelial Cell Urine 0-2 /HPF (0-2); UACC Culture Trigger YES; WBC Urine 0-5 /HPF (0-5)
[2024-01-30 07:37] LABS: Amylase 32 U/L (28-100)
[2024-01-30 08:07] VITALS: BP 117/71; PULSE 85; RESP 16; TEMP 36.9; O2SAT 95
[2024-01-30 09:04] LABS: CDiff Gene PCR NEGATIVE (Negative)
[2024-01-30 10:42] VITALS: BP 132/67; PULSE 89; RESP 16; TEMP 36.8; O2SAT 93
--- NOTE | 2024-01-30 11:19 | PC.NURSE ---
pt speaking w/ ED provider in regards to CT results/plan of care moving forward at this time.
--- NOTE | 2024-01-30 11:28 | PC.NURSE ---
general surgery consult being completed at this time.
[2024-01-30 13:13] VITALS: BP 121/70; PULSE 91; RESP 20; TEMP 36.9; O2SAT 97
--- NOTE | 2024-01-30 15:23 | PC.NURSE ---
pt continues to wait for general surgery decision at this time. resting in no apparent distress. respirations remain even/unlabored. plan of care ongoing. call mcfadden placed within reach.
[2024-01-30 16:04] VITALS: BP 121/70; PULSE 91; RESP 20; TEMP 36.9; O2SAT 97
== END 2024-01-30 16:05 | disposition home or self-care (01) ==
PROVIDERS: Registered Nurse Emergency; Emergency Provider Emergency Medicine; PCP Nurse Practitioner Family
DX: K52.9 Noninfective gastroenteritis and colitis, unspecified (principal); R10.2 Pelvic and perineal pain; R11.2 Nausea with vomiting, unspecified; F17.210 Nicotine dependence, cigarettes, uncomplicated; Z79.899 Other long term (current) drug therapy
CPT/HCPCS: 36415; 74177; 80048; 80076; 81001; 82150; 83690; 83735; 85025; 87493; 99284

== ENCOUNTER 2024-04-20 09:56 | Outpatient (AMB) | payer MEDICARE, SELFPAY ==
[2024-04-20 09:58] VITALS: BP 130/78; PULSE 85; O2SAT 94; BMI 29.1
--- NOTE | 2024-04-20 09:58 | A.OFFPC_ITS ---
Vital Signs 04/20/24 09:58 Height 4 ft Weight 95 lb 4 oz BMI 29.1 BP 130/78 Blood Pressure Location Rt brachial Position Sitting Pulse 85 Pulse Source Pulse Oximeter Pulse Oximetry (%) 94 Intake Visit Reasons: 4 mon f/u Intake Note: pt is here for 4 month follow up [employer] Con[employer] Washer Required: No Accompanied by: Self / Same As Patient Allergies varenicline [From CHANTIX] Allergy (Severe, Verified 04/20/24 09:59) HIVES erythromycin base [ERYTHROMYCIN BASE] Allergy (Intermediate, Verified 04/20/24 09:59) RASH Macrolide Antibiotics [MACROLIDE ANTIBIOTICS] Allergy (Intermediate, Verified 04/20/24 09:59) RASH Sulfa (Sulfonamide Antibiotics) [SULFA (SULFONAMIDE ANTIBIOTICS)] Allergy (Intermediate, Verified 04/20/24 09:59) RASH amoxicillin Allergy (Unknown, Verified 04/20/24 09:59) Unknown barium sulfate Allergy (Unknown, Verified 04/20/24 09:59) Hives penicillin V Allergy (Unknown, Verified 04/20/24 09:59) Rash bupropion [From Wellbutrin] Adverse Reaction (Intermediate, Verified 04/20/24 09:59) Tinnitus sertraline [From Zoloft] Adverse Reaction (Mild, Verified 04/20/24 09:59) Insomnia citalopram Adverse Reaction (Unknown, Verified 04/20/24 09:59) Burning sensation all over body Erythromycin Allergy (Unknown, Uncoded 01/28/24 02:06) Unsure Sulfa drugs Allergy (Unknown, Uncoded 01/28/24 02:06) Unsure sertraline Adverse Reaction (Uncoded 01/28/24 02:06) Insomnia Tobacco use date assessed: 08/28/23 Fall risk assessment: No Falls in past year Last assessed Fall Risk: 04/20/24 Dental Screening Dental Screen Date: 08/28/23 HPI 4 mon f/u HPI Details Pt presents for follow up of gastroenteritis. She was seen in the ER twice for this. Pt was given zofran and dicyclomine. Pt reports doing better today. Denies fever, chills, and N/V/D. Anxiety/depression/PTSD: Pt is seeing a psychiatrist and a therapist. She is doing TMS which was helping, though pt has recently had increased depression. Pt reports that she has not fully processed her daughter's . Denies any SI and HI. [facility] Medical History Renal artery stenosis Hypothalamic hypothyroidism Hypertension Surgical History Hx of lumpectomy Femoral hernia of right side History of tonsillectomy Family History Family/Other Brain cancer Social History Household Members: None Housing: House Are you a primary acute care nursing assistant to a significant other at home: No Do you presently have visiting nurse or other home services: No Alcohol intake: current Alcohol intake frequency: holidays/special occasions only Patient Tobacco Use Status: Current everyday Tobacco user Tobacco use type: Cigarette Cigarette Packs Per Day: 1 e-Cigarette/Vaping Use: Never Used Second Hand Smoke Exposure: No Substance Use Type: Marijuana service: No Current occupational status: employed Current occupation: [employer] Current occupational exposures/hazards: No Cognitive needs: No Hearing needs: Yes Vision needs: No Questionnaire PHQ-9 Over the last 2 weeks, how often have you been bothered by any of the following problems? 1. Little interest or pleasure in doing things: more than half the days 2. Feeling down, depressed, or hopeless: several days 3. Trouble falling or staying asleep, or sleeping too much: nearly every day 4. Feeling tired or having little energy: nearly every day 5. Poor appetite or overeating: not at all 6. Feeling bad about yourself - or that you are a failure or have let yourself or your family down: not at all 7. Trouble concentrating on things, such as reading the newspaper or watching television: several days 8. Moving or speaking so slowly that other people could have noticed. Or the opposite - being so fidgety or restless that you have been moving around a lot more than usual: not at all 9. Thoughts that you would be better off or of hurting yourself in some way: not at all Total score: 10 Depression Screening Interpretation: Positive Depression Screening Follow-up: Existing condition and In treatment Depression Screening Done: Yes 69993 - PHQ-9 Billing: Yes Source: Developed by Drs. Andrea Willis, Dayana Carter, Ata Perkins and colleagues, with an educational jessie from [employer]. Thrive Questionnaire Date Thrive assessed: 04/20/24 I am a: Patient What is your living situation today?: I choose not to answer this question Within the past 12 months, did the food you bought not last and you didn't have the money to get more?: I choose not to answer this question Within the past 12 months, did you worry whether your food would run out before you got money to buy more?: Sometimes True Do you have trouble paying for medicines?: No Do you have trouble getting transportation to medical appointments?: Yes Do you have trouble paying your heating and electricity bill?: No Do you have trouble taking care of your child, family member or friend?: No Do you have trouble with day-to-day activities such as bathing, preparing meals, shopping, managing finances, etc.?: Yes Are you interested in more education?: No Please select the resources that you would like help with: Transportation and None Currently or been in a relationship where the following occur: No concerns reported THRIVE Score: 2 AUDIT C Alcohol Use Questionnaire (AUDIT-C) 1. How often do you have a drink containing alcohol?: Monthly or less 2. How many drinks containing alcohol do you have on a typical day when you are drinking?: 1 or 2 3. How often do you have six or more drinks on one occasion?: Never Total Score: 1 Score Reviewed/Action Taken: Yes LELE-7 AMB Questionnaire LELE-7 Date LELE - 7 assessed: 04/20/24 Feeling nervous, anxious, or on edge: 3 = Nearly every day Not being able to stop or control worryin = Nearly every day Worrying too much about different things: 3 = Nearly every day Trouble relaxin = Nearly every day Being so restless that it is hard to sit still: 0 = Not at all Becoming easily annoyed or irritable: 3 = Nearly every day Feeling afraid as if something awful might happen: 3 = Nearly every day Total LELE-7 score (0-4 normal; 5-9 mild; 10-14 moderate; 15-21 severe): 18 Source: Developed by Drs. Andrea Willis, Dayana Carter, Ata Perkins and colleagues, with an educational jessie from [employer]. LELE-7 Assessment Billing LELE-7 Assessment Tool: LELE-7 Assessment 04455 Review of Systems Const Reports as per HPI Physical exam (Primary Care) Vital Signs: Last Vital Signs Pulse 85 04/20/24 09:58 BP 130/78 04/20/24 09:58 Pulse Ox 94 04/20/24 09:58 BMI result Body Mass Index 29.1 Tobacco/Smoking Status: Tobacco use Status Tobacco use date assessed 08/28/23 04/20/24 09:59 Patient Tobacco Use Status Current everyday Tobacco 04/20/24 09:59 Tobacco use type Cigarette 04/20/24 09:59 e-Cigarette/Vaping Use Never Used 04/20/24 09:59 PHQ-9: PHQ-9 Score PHQ-9: Total score 10 04/20/24 10:25 Depression Screening Interpretation: Positive Depression Screening Follow-up: Existing condition and In treatment Thrive Assessment: Date of Thrive Assessment Date Thrive assessed 04/20/24 04/20/24 09:59 Currently or been in a relationship where the following occur: No concerns reported Const General: cooperative Orientation/consciousness: patient oriented x3 Neuro General: patient oriented x3 Psych Appearance: grossly normal Mental Status: mental status grossly normal Speech and movement: Normal speech and movement present Affect: normal affect Attitude: cooperative Thought process: Normal thought process present Thought content: Normal thought content present Insight: Good insight present (Psych) Judgement: Good judgement present (Psych) Assessment and Plan Assessment & Plan (1) Gastroenteritis: Code(s): K52.9 - Noninfective gastroenteritis and colitis, unspecified Plan: doing much better (2) PTSD (post-traumatic stress disorder): Code(s): F43.10 - Post-traumatic stress disorder, unspecified Plan: cont with psych providers (3) Anxiety: Code(s): F41.9 - Anxiety disorder, unspecified Plan: denies any si or hi, recommend cont with therapy and psych provider Coding Level of Care Code Est Pt Level 3 (71147) Diagnoses Gastroenteritis K52.9 PTSD (post-traumatic stress disorder) F43.10 Anxiety F41.9 Additional Codes LELE-7 Assessment Billing - LELE-7 Assessment Tool: LELE-7 Assessment 33715 ([id number])
== END 2024-04-20 11:22 | disposition home or self-care (01) ==
PROVIDERS: PCP Nurse Practitioner Family; Visit Provider Nurse Practitioner Family
DX: K52.9 Noninfective gastroenteritis and colitis, unspecified (principal); F43.10 Post-traumatic stress disorder, unspecified; F41.9 Anxiety disorder, unspecified

== ENCOUNTER → 2024-04-20 09:56 | Outpatient (BNVA) | payer MEDICARE, SELFPAY | PROVIDERS: PCP Nurse Practitioner Family; Visit Provider Nurse Practitioner Family | DX: K52.9 Noninfective gastroenteritis and colitis, unspecified (principal); F43.10 Post-traumatic stress disorder, unspecified; F41.9 Anxiety disorder, unspecified | CPT/HCPCS: 96127; 99212 ==

== ENCOUNTER 2024-05-12 12:11 | Outpatient (REF) | payer MEDICARE, SELFPAY ==
[2024-05-12 18:42] LABS: Anion Gap 11 (12-20); Blood Urea Nitrogen 14 mg/dL (9-16); Carbon Dioxide 27 mmol/L (22-29); Chloride 107 mmol/L (96-108); Estimated Glomerular Filt Rate > 60; Potassium 4.1 mmol/L (3.3-5.1); Sodium 141 mmol/L (135-145)
[2024-05-12 19:01] LABS: Total Protein Urine Random < 7 mg/dL (<12)
[2024-05-12 19:20] LABS: Creatinine Urine 59.07 mg/dL
== END 2024-05-12 12:12 | disposition home or self-care (01) ==
LOC: HO.HKASLDS 12:11
PROVIDERS: Visit Provider Internal Medicine Nephrology
DX: I15.0 Renovascular hypertension (principal)
CPT/HCPCS: 36415; 80051; 82565; 82570; 84156; 84520

== ENCOUNTER 2024-05-18 10:00 | Outpatient (AMB) | payer MEDICARE, SELFPAY ==
[2024-05-18 10:05] VITALS: BP 160/90; PULSE 70; O2SAT 96; BMI 29.1
--- NOTE | 2024-05-18 10:05 | HO.NEPHOV ---
Vital Signs 05/18/24 10:05 Height 4 ft Weight 95 lb 8 oz BMI 29.1 BP 160/90 H Blood Pressure Location Lt brachial Position Sitting Pulse 70 Pulse Source Pulse Oximeter Pulse Oximetry (%) 96 Oxygen Delivery Method Room Air Intake Visit Reasons: 6 mon follow up/ LVM Event Services Manager Required: No Accompanied by: Self / Same As Patient Allergies varenicline [From CHANTIX] Allergy (Severe, Verified 05/18/24 10:08) HIVES erythromycin base [ERYTHROMYCIN BASE] Allergy (Intermediate, Verified 05/18/24 10:08) RASH Macrolide Antibiotics [MACROLIDE ANTIBIOTICS] Allergy (Intermediate, Verified 05/18/24 10:08) RASH Sulfa (Sulfonamide Antibiotics) [SULFA (SULFONAMIDE ANTIBIOTICS)] Allergy (Intermediate, Verified 05/18/24 10:08) RASH amoxicillin Allergy (Unknown, Verified 05/18/24 10:08) Unknown barium sulfate Allergy (Unknown, Verified 05/18/24 10:08) Hives penicillin V Allergy (Unknown, Verified 05/18/24 10:08) Rash bupropion [From Wellbutrin] Adverse Reaction (Intermediate, Verified 05/18/24 10:08) Tinnitus sertraline [From Zoloft] Adverse Reaction (Mild, Verified 05/18/24 10:08) Insomnia citalopram Adverse Reaction (Unknown, Verified 05/18/24 10:08) Burning sensation all over body Erythromycin Allergy (Unknown, Uncoded 01/28/24 02:06) Unsure Sulfa drugs Allergy (Unknown, Uncoded 01/28/24 02:06) Unsure sertraline Adverse Reaction (Uncoded 01/28/24 02:06) Insomnia HPI Comments Details: I had the privilege of seeing Fabiola in follow-up of her hypertension. Her BP has been labile for last one week. She has history of breast cancer and had undergone lumpectomy radiation and chemotherapy. Her blood pressure had gone up during her chemotherapy time. She does not have any chest pain, shortness of breath, proximal nocturnal dyspnea, orthopnea, pedal edema. She does not take excess sodium in the diet or nonsteroidal anti-inflammatories. She has no orthostatic symptoms. She maintains compliance with her medications. There were no new active issues at the time of this office visit. [facility] Medical History Renal artery stenosis Hypothalamic hypothyroidism Hypertension Surgical History Hx of lumpectomy Femoral hernia of right side History of tonsillectomy Family History Family/Other Brain cancer Social History Household Members: None Housing: House Are you a primary human services care specialist to a significant other at home: No Do you presently have visiting nurse or other home services: No Alcohol intake: current Alcohol intake frequency: holidays/special occasions only Patient Tobacco Use Status: Current everyday Tobacco user Tobacco use type: Cigarette Cigarette Packs Per Day: 1 e-Cigarette/Vaping Use: Never Used Second Hand Smoke Exposure: No Substance Use Type: Marijuana service: No Current occupational status: employed 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 Current occupational exposures/hazards: No Cognitive needs: No Hearing needs: Yes Vision needs: No Review of Systems Const All systems reviewed & are unremarkable except as noted in HPI and below Physical Exam Vital Signs: Last Vital Signs Pulse 70 05/18/24 10:05 BP 178/90 H 05/18/24 10:05 Pulse Ox 96 05/18/24 10:05 Oxygen Delivery Method Room Air 05/18/24 10:05 BMI result Body Mass Index 29.1 Const General: comfortable and no acute distress Orientation/consciousness: patient oriented x3 HEENT Head: Yes normocephalic Mouth: Normal oral and palatal mucosa present Eyes EOM: EOMs intact bilaterally Neck Neck: Yes supple Resp Auscultation: clear to auscultation bilaterally Cardio Jugular venous distension: no JVD Rate: regular rate GI Palpation (GI): Soft to palpation Auscultation: normal bowel sounds General: Yes no CVA tenderness Back/Spine/Pelvis Back: no CVA tenderness Skin General skin exam: no rashes or lesions noted Neuro General: patient oriented x3 and moves all extremities Extrem General: Yes no pedal edema Results Reviewed Nephrology Results: Hgb 13.9 g/dl (12.0-16.0) 01/30/24 WBC 9.3 X10*3/uL (4.8-10.8) 01/30/24 Plt Count 269 X10*3/uL (160-400) 01/30/24 Sodium 141 mmol/L (135-145) 05/12/24 Potassium 4.1 mmol/L (3.3-5.1) 05/12/24 Chloride 107 mmol/L (96-108) 05/12/24 Carbon Dioxide 27 mmol/L (22-29) 05/12/24 BUN 14 mg/dL (9-16) 05/12/24 Creatinine 0.73 mg/dL (0.5-1.4) 05/12/24 Calcium 9.8 mg/dL (8.4-10.2) 01/30/24 Urine Protein Trace mg/dL (Neg-Trace) 01/30/24 Urine Creatinine 59.07 mg/dL 05/12/24 Protein/Creatinin Ratio TNP 05/12/24 Assessment & Plan Assessment & Plan (1) Hypertension: Code(s): I10 - Essential (primary) hypertension Category: Medical Qualifiers: Hypertension type: renovascular hypertension Qualified Code(s): I15.0 - Renovascular hypertension Plan Fabiola has longstanding hypertension. She maintains a low-sodium diet. 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 I asked her to take ACEI and beta fan AM and Amlodipine at night. I plan to arrange Doppler of renal arteries with time to monitor the caliber of her renal arteries. Her serum potassium renal functions had been stable. She avoids nonsteroidal anti-inflammatories .Her volume status was optimal. I did not make any medication changes today. All her questions were answered. Follow-up appointment was given Coding Level of Care Code Est Pt Level 4 (41385) Diagnoses Renovascular hypertension I15.0 Hypertension type: renovascular hypertension
== END 2024-05-18 10:32 | disposition home or self-care (01) ==
PROVIDERS: PCP Nurse Practitioner Family; Visit Provider Internal Medicine Nephrology
DX: I10 Essential (primary) hypertension (principal); I70.1 Atherosclerosis of renal artery
CPT/HCPCS: 99214

== ENCOUNTER → 2024-05-18 10:00 | Outpatient (BNVA) | payer MEDICARE, SELFPAY | PROVIDERS: PCP Nurse Practitioner Family; Visit Provider Internal Medicine Nephrology | DX: I15.0 Renovascular hypertension (principal) | CPT/HCPCS: 99212 ==

== ENCOUNTER 2024-06-01 09:58 | Outpatient (AMB) | payer MEDICARE, SELFPAY ==
--- NOTE | 2024-06-01 10:01 | HO.NEPHOV_ITS ---
Vital Signs 06/01/24 10:06 Height 4 ft Weight 93 lb 8 oz BMI 28.5 BP 130/70 Blood Pressure Location Lt brachial Position Sitting Pulse 65 Pulse Source Pulse Oximeter Pulse Oximetry (%) 95 Oxygen Delivery Method Room Air Intake Visit Reasons: 2 wk follow up-Conf Childcare Teacher Required: No Accompanied by: Self / Same As Patient Allergies varenicline [From CHANTIX] Allergy (Severe, Verified 06/01/24 10:08) HIVES erythromycin base [ERYTHROMYCIN BASE] Allergy (Intermediate, Verified 06/01/24 10:08) RASH Macrolide Antibiotics [MACROLIDE ANTIBIOTICS] Allergy (Intermediate, Verified 06/01/24 10:08) RASH Sulfa (Sulfonamide Antibiotics) [SULFA (SULFONAMIDE ANTIBIOTICS)] Allergy (Intermediate, Verified 06/01/24 10:08) RASH amoxicillin Allergy (Unknown, Verified 06/01/24 10:08) Unknown barium sulfate Allergy (Unknown, Verified 06/01/24 10:08) Hives penicillin V Allergy (Unknown, Verified 06/01/24 10:08) Rash bupropion [From Wellbutrin] Adverse Reaction (Intermediate, Verified 06/01/24 10:08) Tinnitus sertraline [From Zoloft] Adverse Reaction (Mild, Verified 06/01/24 10:08) Insomnia citalopram Adverse Reaction (Unknown, Verified 06/01/24 10:08) Burning sensation all over body Erythromycin Allergy (Unknown, Uncoded 01/28/24 02:06) Unsure Sulfa drugs Allergy (Unknown, Uncoded 01/28/24 02:06) Unsure sertraline Adverse Reaction (Uncoded 01/28/24 02:06) Insomnia HPI Comments Details: Fabiola was seen in follow-up of her hypertension. Her BP had been labile lately , but better. She has history of breast cancer and had undergone lumpectomy radiation and chemotherapy. Her blood pressure had gone up during her chemotherapy time. She does not have any chest pain, shortness of breath, proximal nocturnal dyspnea, orthopnea, pedal edema. She does not take excess sodium in the diet or nonsteroidal anti-inflammatories. She has no orthostatic symptoms. She maintains compliance with her medications. There were no new active issues at the time of this office visit [facility] Medical History (Reviewed 04/20/24 @ 11:58 by Sukh Patel, CERTIFIED COURT[facility] Renal artery stenosis Hypothalamic hypothyroidism Hypertension Surgical History Hx of lumpectomy Femoral hernia of right side History of tonsillectomy Family History Family/Other Brain cancer Social History Household Members: None Housing: House Are you a primary palliative care nurse practitioner to a significant other at home: No Do you presently have visiting nurse or other home services: No Alcohol intake: current Alcohol intake frequency: holidays/special occasions only Patient Tobacco Use Status: Current everyday Tobacco user Tobacco use type: Cigarette Cigarette Packs Per Day: 1 e-Cigarette/Vaping Use: Never Used Second Hand Smoke Exposure: No Substance Use Type: Marijuana service: No Current occupational status: employed 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 Current occupational exposures/hazards: No Cognitive needs: No Hearing needs: Yes Vision needs: No Review of Systems Const All systems reviewed & are unremarkable except as noted in HPI and below Physical Exam Const General: comfortable and no acute distress Orientation/consciousness: patient oriented x3 HEENT Head: Yes normocephalic Mouth: Normal oral and palatal mucosa present Eyes EOM: EOMs intact bilaterally Neck Neck: Yes supple Resp Auscultation: clear to auscultation bilaterally Cardio Jugular venous distension: no JVD Rate: regular rate GI Palpation (GI): Soft to palpation Auscultation: normal bowel sounds General: Yes no CVA tenderness Back/Spine/Pelvis Back: no CVA tenderness Skin General skin exam: no rashes or lesions noted Neuro General: patient oriented x3 and moves all extremities Extrem General: Yes no pedal edema Results Reviewed Nephrology Results: Hgb 13.9 g/dl (12.0-16.0) 01/30/24 WBC 9.3 X10*3/uL (4.8-10.8) 01/30/24 Plt Count 269 X10*3/uL (160-400) 01/30/24 Sodium 141 mmol/L (135-145) 05/12/24 Potassium 4.1 mmol/L (3.3-5.1) 05/12/24 Chloride 107 mmol/L (96-108) 05/12/24 Carbon Dioxide 27 mmol/L (22-29) 05/12/24 BUN 14 mg/dL (9-16) 05/12/24 Creatinine 0.73 mg/dL (0.5-1.4) 05/12/24 Calcium 9.8 mg/dL (8.4-10.2) 01/30/24 Urine Protein Trace mg/dL (Neg-Trace) 01/30/24 Urine Creatinine 59.07 mg/dL 05/12/24 Protein/Creatinin Ratio TNP 05/12/24 Assessment & Plan Assessment & Plan (1) Hypertension: Code(s): I10 - Essential (primary) hypertension Category: Medical Qualifiers: Hypertension type: renovascular hypertension Qualified Code(s): I15.0 - Renovascular hypertension Plan Fabiola has longstanding hypertension. She maintains a low-sodium diet. 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 I asked her to take ACEI and beta fan AM and Amlodipine at night. I plan to arrange Doppler of renal arteries with time to monitor the caliber of her renal arteries. Her serum potassium renal functions had been stable. She avoids nonsteroidal anti- inflammatories .Her volume status was optimal. I did not make any medication changes today. All her questions were answered. Follow-up appointment was given Orders: Orders Creatinine 6 Months I15.0 - Renovascular hypertension Blood Urea Nitrogen 6 Months I15.0 - Renovascular hypertension Electrolytes 6 Months I15.0 - Renovascular hypertension Protein Creatinine Ratio, Ur 6 Months I15.0 - Renovascular hypertension Coding Level of Care Code Est Pt Level 4 (36859) Diagnoses Renovascular hypertension I15.0 Hypertension type: renovascular hypertension
[2024-06-01 10:06] VITALS: BP 130/70; PULSE 65; O2SAT 95; BMI 28.5
== END 2024-06-01 10:34 | disposition home or self-care (01) ==
LOC: HO.HKAS 09:59
PROVIDERS: PCP Nurse Practitioner Family; Visit Provider Internal Medicine Nephrology
DX: I10 Essential (primary) hypertension (principal); I70.1 Atherosclerosis of renal artery
CPT/HCPCS: 99214

== ENCOUNTER → 2024-06-01 09:58 | Outpatient (BNVA) | payer MEDICARE, SELFPAY | PROVIDERS: PCP Nurse Practitioner Family; Visit Provider Internal Medicine Nephrology | DX: I15.0 Renovascular hypertension (principal); I70.1 Atherosclerosis of renal artery | CPT/HCPCS: 99212 ==

== ENCOUNTER 2024-07-19 09:28 | Outpatient (AMB) | payer MEDICARE, SELFPAY ==
[2024-07-19 09:38] VITALS: BP 142/90; PULSE 71; O2SAT 97; BMI 19.2
--- NOTE | 2024-07-19 09:38 | MHC.PC.OV ---
Vital Signs 07/19/24 09:38 Height 4 ft 11 in Weight 95 lb BMI 19.2 BP 142/90 H Blood Pressure Location Rt brachial Position Sitting Pulse 71 Pulse Source Pulse Oximeter Pulse Oximetry (%) 97 Intake Visit Reasons: 3m follow up Intake Note: pt is here for 3 mon f/up Director Of Provider Relations Required: No Allergies varenicline [From CHANTIX] Allergy (Severe, Verified 07/19/24 09:38) HIVES erythromycin base [ERYTHROMYCIN BASE] Allergy (Intermediate, Verified 07/19/24 09:38) RASH Macrolide Antibiotics [MACROLIDE ANTIBIOTICS] Allergy (Intermediate, Verified 07/19/24 09:38) RASH Sulfa (Sulfonamide Antibiotics) [SULFA (SULFONAMIDE ANTIBIOTICS)] Allergy (Intermediate, Verified 07/19/24 09:38) RASH amoxicillin Allergy (Unknown, Verified 07/19/24 09:38) Unknown barium sulfate Allergy (Unknown, Verified 07/19/24 09:38) Hives penicillin V Allergy (Unknown, Verified 07/19/24 09:38) Rash bupropion [From Wellbutrin] Adverse Reaction (Intermediate, Verified 07/19/24 09:38) Tinnitus sertraline [From Zoloft] Adverse Reaction (Mild, Verified 07/19/24 09:38) Insomnia citalopram Adverse Reaction (Unknown, Verified 07/19/24 09:38) Burning sensation all over body Erythromycin Allergy (Unknown, Uncoded 07/13/24 11:08) Unsure Sulfa drugs Allergy (Unknown, Uncoded 07/13/24 11:08) Unsure sertraline Adverse Reaction (Uncoded 07/13/24 11:08) Insomnia Medication List - Last Reconciled 07/19/24 by JOHANN Olivares- amlodipine 0.5 tabs PO QAM atenolol 37.5 mg (1.5 x 25 mg) PO DAILY 30 days calcium carbonate-vitamin D3 600 mg-10 mcg (400 unit) (Calcium with Vitamin D) 1 tab PO BID 30 days diazepam 5 mg PO BID PRN 30 days levothyroxine 25 mcg PO DAILY lisinopril 40 mg PO DAILY omeprazole 20 mg PO DAILY Tobacco use date assessed: 08/28/23 Fall risk assessment: No Falls in past year Last assessed Fall Risk: 07/19/24 Dental Screening Dental Screen Date: 08/28/23 HPI 3m follow up HPI Details Chief Complaint The patient presents for follow-up of depression and anxiety. History of Present Illness The patient is a 68-year-old female presenting with a follow-up for depression and anxiety. She reports a longstanding history of these mental health concerns, for which she is actively receiving treatment. She regularly consults with a psychiatrist and therapist. Currently, she denies experiencing any suicidal or homicidal ideation. There is no history of chest pain, shortness of breath, fevers, or chills associated with her condition. The patient is emotionally affected by the recent loss of her pet cat of 19 years, which has made her somewhat teary-eyed. Despite this, she reports managing her mental health fairly well at this time. Social History - Family status: Recently lost her pet cat of 19 years, which has caused emotional distress. - Mental health support: Regularly consults with a psychiatrist and therapist. Health Maintenance Review of Systems - Psychiatric: Reports emotional distress due to recent loss. - Cardiovascular: Denies chest pain. - Respiratory: Denies shortness of breath. - Constitutional: Denies fevers and chills. Physical Exam General: Cooperative, healthy appearing, comfortable, no acute distress and well developed Orientation: Patient oriented x3 Limitations: No limitations Head: Normal to inspection Ears: Hearing grossly normal bilaterally Nose: Normal external nose present Face and sinus: Normal facial exam Eyes: Appearance normal, both eyes and all related structures Neck: Normal visual inspection and Yes full ROM Respiratory: Diminished lung sounds, still clear, moving good air bilat Cardiovascular: Regular rate and rhythm. Normal S1 and S2 GI: Normal to inspection. Soft to palpation and nontender Skin: No rashes or lesions noted Neuro: Patient oriented x3 Extremities: Normal to inspection, no edema noted Results Plan - Continue current psychiatric treatment regimen with psychiatrist and therapist. - Monitor emotional response to recent pet loss and provide support as needed. Patient was informed and verbally consented to the use of an ambient scribe for clinic note documentation during this visit. Discussion Notes During the consultation, I discussed the ongoing management of the patient's depression and anxiety, reaffirming the importance of continuous psychiatric care with her existing psychiatrist and therapist. We reviewed her current mental status concerning the loss of her pet, providing emotional support and advice on coping strategies. I acknowledged her self-reported stability despite the recent emotional stress. Patient Instructions - Continue attending scheduled sessions with your psychiatrist and therapist. - Engage in self-care activities and coping strategies discussed with your mental health providers. - Monitor any changes in mood or thoughts and report them as necessary. [facility], [facility] Medical History Renal artery stenosis Hypothalamic hypothyroidism Hypertension Surgical History Hx of lumpectomy Femoral hernia of right side History of tonsillectomy Family History Family/Other Brain cancer Social History Household Members: None Housing: House Are you a primary intensive care nurse to a significant other at home: No Do you presently have visiting nurse or other home services: No Alcohol intake: current Alcohol intake frequency: holidays/special occasions only Patient Tobacco Use Status: Current everyday Tobacco user Tobacco use type: Cigarette Cigarette Packs Per Day: 1 e-Cigarette/Vaping Use: Never Used Second Hand Smoke Exposure: No Substance Use Type: Marijuana service: No Current occupational status: employed 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 Current occupational exposures/hazards: No Cognitive needs: No Hearing needs: Yes Vision needs: No Questionnaire Thrive Questionnaire Date Thrive assessed: 07/19/24 I am a: Patient What is your living situation today?: I choose not to answer this question Within the past 12 months, did the food you bought not last and you didn't have the money to get more?: I choose not to answer this question Within the past 12 months, did you worry whether your food would run out before you got money to buy more?: Sometimes True Do you have trouble paying for medicines?: No Do you have trouble getting transportation to medical appointments?: Yes Do you have trouble paying your heating and electricity bill?: No Do you have trouble taking care of your child, family member or friend?: No Do you have trouble with day-to-day activities such as bathing, preparing meals, shopping, managing finances, etc.?: Yes Are you currently unemployed and looking for a job?: I choose not to answer this question Are you interested in more education?: No Currently or been in a relationship where the following occur: No concerns reported THRIVE Score: 2 AUDIT C Alcohol Use Questionnaire (AUDIT-C) 1. How often do you have a drink containing alcohol?: Monthly or less 2. How many drinks containing alcohol do you have on a typical day when you are drinking?: 1 or 2 3. How often do you have six or more drinks on one occasion?: Never Total Score: 1 Score Reviewed/Action Taken: Yes LELE-7 AMB Questionnaire LELE-7 Date LELE - 7 assessed: 04/20/24 Source: Developed by Drs. Andrea Willis, Dayana Carter, Ata Perkins and colleagues, with an educational jessie from [employer]. Physical exam (Primary Care) Vital Signs: Last Vital Signs Pulse 71 07/19/24 09:38 BP 142/90 H 07/19/24 09:38 Pulse Ox 97 07/19/24 09:38 BMI result Body Mass Index 19.2 Tobacco/Smoking Status: Tobacco use Status Tobacco use date assessed 08/28/23 07/19/24 09:40 Patient Tobacco Use Status Current everyday Tobacco 07/19/24 09:40 Tobacco use type Cigarette 07/19/24 09:40 e-Cigarette/Vaping Use Never Used 07/19/24 09:40 Thrive Assessment: Date of Thrive Assessment Date Thrive assessed 07/19/24 07/19/24 09:40 Currently or been in a relationship where the following occur: No concerns reported Coding Level of Care Code Est Pt Level 3 (36551) Diagnoses Anxiety F41.9 Assessment & Plan Assessment & Plan (1) Anxiety: Code(s): F41.9 - Anxiety disorder, unspecified Category: Medical Plan . Orders: Orders Complete Blood Count Auto Diff Today F41.9 - Anxiety disorder, unspecified Comprehensive [place]. Panel Fast Today F41.9 - Anxiety disorder, unspecified TSH reflex Free T4 Today F41.9 - Anxiety disorder, unspecified UA CC w/rflx Micro + Cult Today F41.9 - Anxiety disorder, unspecified Lipid Panel Today F41.9 - Anxiety disorder, unspecified
== END 2024-07-19 10:41 | disposition home or self-care (01) ==
PROVIDERS: PCP Nurse Practitioner Family; Visit Provider Nurse Practitioner Family
DX: F41.9 Anxiety disorder, unspecified (principal)

== ENCOUNTER → 2024-07-19 09:28 | Outpatient (BNVA) | payer MEDICARE, SELFPAY | PROVIDERS: PCP Nurse Practitioner Family; Visit Provider Nurse Practitioner Family | DX: F41.9 Anxiety disorder, unspecified (principal) | CPT/HCPCS: 99212 ==

== ENCOUNTER 2024-08-26 10:30 | Outpatient (REF) | payer MEDICARE, SELFPAY ==
--- NOTE | ~2024-08-26 | MM_ITS ---
EXAMINATION: DXA BONE DENSITY AXIAL HISTORY: Estrogen deficiency TECHNIQUE: Soluto Dual energy absorptiometry (DEXA) of the lumbar spine, total left hip, and femoral neck was performed. COMPARISON: Comparison is made with the prior examination dated 07/30/2022. FINDINGS: The bone mineral density of the lumbar spine is 0.730 with a T-score of -3.7, and a Z-score of -1.3. This represents a BMD change of 5.5% compared to the prior exam. This is statistically significant. The bone mineral density of the left total hip is 0.640 with a T-score of -2.9, and a Z-score of -1.0. This represents BMD change of -6.3% compared to the prior exam. This is statistically significant. The bone mineral density of the left femoral neck is 0.648 with a T-score of -2.8, and a Z-score of -0.7. This represents BMD change of -8.1% compared to the prior exam. FRACTURE RISK: The FRAX index suggests a ten year probability of major osteoporotic fracture of 17.5%, and of hip fracture 8.0%. MM/XR DEXA axial skeleton IMPRESSION: Based on bone mineral density, and according to World Health Organization (WHO) criteria, the diagnosis is consistent with osteoporosis. All bone density values are in grams per centimeter squared (g/cm2). Statistically, 68% of repeat scans fall within 1 SD (+/- 0.010 g/cm2 for AP spine L1-L4) and 1 SD (+/- 0.012 g/cm2 for femur total) FRAX is a trademark of the [employer] [place] for Metabolic Bone Disease, a World Health Organization (WHO) Collaborating Center. Electronically signed by: Andrea Barlow MD 08/26/2024 12:26 PM [facility]
== END 2024-08-26 10:31 | disposition home or self-care (01) ==
LOC: HO.MAMMO 10:30
PROVIDERS: PCP Nurse Practitioner Family; Visit Provider Nurse Practitioner Family
DX: M81.0 Age-related osteoporosis without current pathological fracture (principal)
CPT/HCPCS: 77080

== ENCOUNTER 2024-09-07 10:29 | Outpatient (AMB) | payer MEDICARE, SELFPAY ==
--- NOTE | 2024-09-07 10:30 | MHC.OFFVIS ---
Vital Signs 09/07/24 10:34 Height 4 ft 11 in Weight 97 lb 3.582 oz BMI 19.6 BP 106/74 Blood Pressure Location Lt brachial Position Sitting Pulse 76 Pulse Source Pulse Oximeter Pulse Oximetry (%) 96 Oxygen Delivery Method Room Air Intake Visit Reasons: Age-related osteoporosis Intake Note: Patient present today for Osteoporosis follow up. Technology Resource Teacher Required: No Accompanied by: Self / Same As Patient Allergies varenicline [From CHANTIX] Allergy (Severe, Verified 09/07/24 10:35) HIVES erythromycin base [ERYTHROMYCIN BASE] Allergy (Intermediate, Verified 09/07/24 10:35) RASH Macrolide Antibiotics [MACROLIDE ANTIBIOTICS] Allergy (Intermediate, Verified 09/07/24 10:35) RASH Sulfa (Sulfonamide Antibiotics) [SULFA (SULFONAMIDE ANTIBIOTICS)] Allergy (Intermediate, Verified 09/07/24 10:35) RASH amoxicillin Allergy (Unknown, Verified 09/07/24 10:35) Unknown barium sulfate Allergy (Unknown, Verified 09/07/24 10:35) Hives penicillin V Allergy (Unknown, Verified 09/07/24 10:35) Rash bupropion [From Wellbutrin] Adverse Reaction (Intermediate, Verified 09/07/24 10:35) Tinnitus sertraline [From Zoloft] Adverse Reaction (Mild, Verified 09/07/24 10:35) Insomnia citalopram Adverse Reaction (Unknown, Verified 09/07/24 10:35) Burning sensation all over body Erythromycin Allergy (Unknown, Uncoded 09/07/24 10:35) Unsure Sulfa drugs Allergy (Unknown, Uncoded 09/07/24 10:35) Unsure sertraline Adverse Reaction (Uncoded 09/07/24 10:35) Insomnia Medication List - Last Reconciled 09/07/24 by Andrea Carballo MD amlodipine 0.5 tabs PO QAM atenolol 37.5 mg (1.5 x 25 mg) PO DAILY calcium carbonate-vitamin D3 600 mg-10 mcg (400 unit) (Calcium with Vitamin D) 1 tab PO BID 30 days diazepam 5 mg PO BID PRN 30 days levothyroxine 25 mcg PO DAILY lisinopril 40 mg PO DAILY nitrofurantoin macrocrystal 100 mg PO BEDTIME omeprazole 20 mg PO DAILY HPI Comments Details: 68 YO Female with is seen in consultation at the request of PCP for Osteoporosis. First diagnosed in 4-5 yrs ago . Not Received treatment in the past . Was prescribed alendronate but did not take No history of pathologic fracture or ONJ. Has few servings of dietary calcium per day Takes Calcium supplement 600 mg daily in divided doses. Takes ? IU of Vitamin D daily. Take PPI,- anticoagulant, -antiepileptic or -glucocorticoid medication. Not Does weight bearing exercise Fracture history: No Height loss: [employer] history: Not sure when menopause but nl menses before Denies history of Kidney stones: Denies family history of Osteoporosis or hip fracture. No UTD on dental cleanings and sees dentist every 6 months. No planned upcoming dental work or extractions. Smokes 1 08/05 ppd DXA dated 07/30/22:[facility] [address] [place], [place] [address] Mammography Report Signed Patient: Fabiola Calhoun MR#: [id number] : 1955 Acct:[id number] Age/Sex: 66 / F ADM Date: 07/30/22 Loc: MAMMO Attending Dr: Sukh RAMIREZ Ordering Physician: Sukh Patel Results: Date of Service: 07/30/22 Follow Up: Procedure(s): XR DEXA axial skeleton Accession Number(s): [id number] cc: Sukh Patel~ EXAMINATION: BONE DENSITOMETRY CLINICAL INDICATION: Asymptomatic menopausal state. COMPARISON: Previous BD dated 07/25/2020 and baseline BD dated 10/10/2017. TECHNIQUE: Using a Edfa3ly DXA System (software version: 13.1) manufactured by [employer], dual-energy x-ray absorptiometry was performed of the lumbar spine and left hip. The images are of good technical quality. Summary results are attached. FINDINGS: AP SPINE L1-L3 (excluding L4): The data of L1-L4 has been changed to exclude the L4 vertebral body, because degenerative sclerosis at this level may cause overestimation of lumbar spine density. Current: BMD 0.692 g/cm2, Z-score -1.7, T-score -4.0, osteoporosis, 13.1% decrease from previous, 6.2% decrease from baseline (<5% change is not significant). Prior: BMD 0.796 g/cm2. Baseline: BMD 0.738 g/cm2. LEFT FEMUR, NECK: Current: BMD 0.705 g/cm2, Z-score -0.4, T-score -2.4, osteopenia. Prior: BMD 0.666 g/cm2. Baseline: BMD 0.683 g/cm2. LEFT FEMUR, TOTAL: Current: BMD 0.683 g/cm2, Z-score -0.8, T-score -2.6, osteoporosis, 3.0% decrease from previous, 0.3% decrease from baseline (<5% change is not significant). Prior: BMD 0.704 g/cm2. Baseline: BMD 0.685 g/cm2. IDENTIFIED RISK FACTORS: Osteoporosis, tobacco use (current smoker), height loss, menopause. HISTORY OF FRACTURE: None listed. MEDICATIONS: Calcium/multivitamin, ERT/SERMS. MM/XR DEXA axial skeleton IMPRESSION: 1. DIAGNOSIS: Osteoporosis based on the lowest T-score value of -4.0 in the lumbar spine applying World Health Organization criteria Labs: Lab work was ordered for secondary workup the patient did not go for. No fracture since last visit. Currently taking calcium and vitamin-D [facility] Medical History Renal artery stenosis Hypothalamic hypothyroidism Hypertension Surgical History Hx of lumpectomy Femoral hernia of right side History of tonsillectomy Family History Family/Other Brain cancer Social History Household Members: None Housing: House Are you a primary nonfarm animal caretaker to a significant other at home: No Do you presently have visiting nurse or other home services: No Alcohol intake: current Alcohol intake frequency: holidays/special occasions only Patient Tobacco Use Status: Current everyday Tobacco user Tobacco use type: Cigarette Cigarette Packs Per Day: 1 e-Cigarette/Vaping Use: Never Used Second Hand Smoke Exposure: No Substance Use Type: Marijuana service: No Current occupational status: employed 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 Rule out secondary causes. Blood work was ordered as well as 24 hour urine collection but it does not appear patient went for bloodor urine studies The plan is check a phosphorus, TSH, free T4, 24 hour urine for calcium and creatinine, SPEP, urine immunofixation. One secondary workup is complete, discussed pharmacologic therapy with patient including use of anti resorptive this like or alendronate 1st intravenous Reclast or Prolia but would prefer starting with a anabolic agent like Evenity, Tymlos or Forteo in this patient very high risk for fracture Orders: Orders Free T4 (Free Thyroxine) Today M81.0 - Age-related osteoporosis without current pathological fracture Thyroid Stimulating Hormone Today M81.0 - Age-related osteoporosis without current pathological fracture Protein Electrophoresis, Serum Today M81.0 - Age-related osteoporosis without current pathological fracture Phosphorus Today M81.0 - Age-related osteoporosis without current pathological fracture Immunofixation, Random Urine Today M81.0 - Age-related osteoporosis without current pathological fracture Creatinine, 24 Hr Group Today M81.0 - Age-related osteoporosis without current pathological fracture Calcium, 24 Hr Ur Today M81.0 - Age-related osteoporosis without current pathological fracture Coding Level of Care Code Est Pt Level 3 (71133) Diagnoses Osteoporosis M81.0
[2024-09-07 10:34] VITALS: BP 106/74; PULSE 76; O2SAT 96; BMI 19.6
--- OUTSIDE RECORDS SUMMARY | 2024-09-07 11:21 | XMS_ITS | Clinical Summary ---
Author Organization [facility] Address [address] [place] [address] Phone Care Team Providers Care Motors Assembler Name Role Phone Sukh Patel NP Primary Care Provider [phone] Allergies Active Allergy Reactions Criticality Noted Date Comments Citalopram 07/01/2017 Penicillin V Other (see comments) 07/01/2017 Varenicline Other (see comments) 07/01/2017 Medications Probiotic Product (PROBIOTIC-10 PO) Take 1 capsule by mouth 1 (one) time each day Active Evening [place] Oil 500 MG capsule Take 1 capsule by mouth 1 (one) time each day Active levothyroxine (SYNTHROID, LEVOTHROID) 25 MCG tablet Take 1 tablet by mouth 1 (one) time each day Active omeprazole (PriLOSEC) [address] capsule Take 1 capsule by mouth 1 (one) time each day Active tamoxifen (NOLVADEX) 20 MG chemo tablet Take 1 tablet by mouth 1 (one) time each day Active diazePAM (VALIUM) 5 MG tablet Take 5 mg by mouth 2 (two) times a day if needed 1 Active atorvastatin (LIPITOR) 10 MG tablet Take 10 mg by mouth at bed time 2 Active Calcium Carb-Cholecalci ferol 600-10 MG-MCG tablet Take 1 tablet by mouth 2 (two) times a day 3 Active amLODIPine (NORVASC) 5 MG tabletIndicatio ns:Stage 3 chronic kidney disease, not otherwise specified (HCC) TAKE 1 TABLET BY MOUTH EVERY DAY 90 tablet 3 3 Active lisinopril 40 MG tablet TAKE 1 TABLET BY MOUTH EVERY DAY 90 tablet 1 3 Active atenolol (TENORMIN) 25 MG tabletIndicatio ns:Hypertension TAKE 1+1/2 TABLETS BY MOUTH ONCE A DAY 135 tablet 6 2 11/05/19 23 Discontinu ed(Duplica te order (does not appear on AVS)) Active Problems Problem Noted Date Diagnosed Date Hypertension 02/08/2021 Benign essential hypertension 02/06/2021 Tobacco dependence syndrome 02/06/2021 Family History Medical History Relation Comments Heart disease Father Heart disease Mother Stroke Mother Relation Status Comments Father Mother Social History Tobacco Use Types Packs/Day Years Used Date Smoking Tobacco: Every Day Cigarettes Smokeless Tobacco: Never Tobacco Cessation:Ready to Q uit: Not Asked; Counseling Given: Not Answered Alcohol Use Standard Drinks/Week Comments Yes 0 (1 standard drink = 0.6 oz pure alcohol) Alcoholic Drinks/day: Occasional social drink Comments Unknown Sex and Gender Information Value Date Recorded Sex Assigned at Not on file Legal Sex Female 5:02 PM EST Gender Identity Not on file Sexual Orientation Not on file Last Filed Vital Signs Vital Sign Reading Time Taken Comments Blood Pressure 112/70 11/04/2022 2:42 PM EDT Pulse 64 11/04/2022 2:42 PM EDT Temperature - - Respiratory Rate - - Oxygen Saturation 95% 04/30/2022 3:54 PM EDT Inhaled Oxygen Concentration - - Weight 4.627 kg (10 lb 3.2 oz) 11/04/2022 2:42 P M EDT Height 149.9 cm (4' 11 ) 08/08/2020 12:01 PM EST Body Mass Index 2.06 08/08/2020 12:01 PM EST Plan of Treatment Health Maintenance Due Date Last Done Comments Breast Cancer Screening 1955 Pneumococcal Vaccine: 65+ Ye ars (1 of 2 - PCV) 1961 Colorectal Cancer Screening: Annual FOBT 10/13/2003 Colorectal Cancer Screening: Colonoscopy 10/13/2003 Colorectal Cancer Screening: Sigmoidoscopy 10/13/2003 Influenza Vaccine (#1) 2024 Hepatitis B Vaccine Aged Out No longe r eligible based on patient's age to complete this topic Insurance [facility] ([id number]) [facility] ([id number]) Care Teams Motors Assembler Relationship Specialty Start Date End Date Sukh Patel NP [address] [place] [address] PCP - General 08/14/20
--- OUTSIDE RECORDS SUMMARY | 2024-09-07 11:21 | XMS_ITS | Encounter Summary ---
Author Organization [facility] Address [address] [facility] [address] [place] [address] Phone Care Team Providers Care Fulfillment Representative Name Role Phone Sukh Patel NP Primary Care Provider [phone] Encounter Details Date Type Department Care Team (Late st Contact Info) Description 03/06/2022 Telephone [facility] [address] [facility] [address] [place] [address] Waqas Brasher MD Social History Tobacco Use Types Packs/Day Years Used Date Smoking Tobacco: Every Day Cigarettes Smokeless Tobacco: Current Alcohol Use Standard Drinks/Week Comments Yes 0 (1 standard drink = 0.6 oz pure alcohol) Alcoholic Drinks/day: Occasional social drink Comments Unknown Sex and Gender Information Value Date Recorded Sex Assigned at Not on file Legal Sex Female 5:02 PM EST Gender Identity Not on file Sexual Orientation Not on file documented as of this encounter Miscellaneous Notes * Telephone Encounter - Winifred Morrison - 03/06/2022 1:12 PM EDT Pt called and needs a refill for amlodipine 5 mg sent to [facility]. She has called several times and hasn't been able to get it filled. Please advise Thank you documented in this encounter Plan of Treatment Not on file documented as of this encounter Visit Diagnoses Not on filedocumented in this encounter Care Teams Fulfillment Representative Relationship Specialty Start Date End Date Sukh Patel NP [address] [place] [id number] PCP - General 08/14/20 documented as of this encounter
--- OUTSIDE RECORDS SUMMARY | 2024-09-07 11:21 | XMS_ITS | Clinical Summary ---
Author Organization [facility] Address [address] [place] [address] Care Team Providers Care Farm Operations Manager Name Role Phone Sukh Patel Primary Care Provider [phone] Allergies Active Allergy Reactions Criticality Noted Date Comments Varenicline 07/01/2017 Citalopram 07/01/2017 Penicillin V 07/01/2017 Medications Medication Sig Dispensed Refills Start Date End Date Status levothyroxine (SYNTHROID, LEVOXYL) tablet 25 mcg Take 25 mcg by mouth every morning on an empty stomach. 0 Active omeprazole (PRILOSEC) 20 MG capsule Take 20 mg by mouth daily. 0 Active atenolol (TENORMIN) tablet 25 mg Take 25 mg by mouth daily. 0 Active Active Problems No known active problems Family History Medical History Relation Name Comments Hypertension Father Alcohol abuse Mother Diabetes Mother Stroke Mother Relation Name Status Comments Father Mother Sister Social History Tobacco Use Types Packs/Day Years Used Date Smoking Tobacco: Some Days Smokeless Tobacco: Never Alcohol Use Standard Drinks/Week Comments No 0 (1 standard drink = 0.6 oz pur e alcohol) Sex and Gender Information Value Date Recorded Sex Assigned at Not on file Gender Identity Not on file Sexual Orientation Not on file Last Filed Vital Signs Vital Sign Reading Time Taken Comments Blood Pressure 170/82 07/01/2017 1:05 PM EST Pulse 66 07/01/2017 1:05 PM EST Temperature - - Respiratory Rate - - Oxygen Saturation - - Inhaled Oxygen Concentration - - Weight - - Height 149.9 cm (4' 11 ) 07/01/2017 1:05 PM EST Body Mass Index - - Plan of Treatment Health Maintenance Due Date Last Done Comments Hepatitis C Screening 1954 COVID-19 Vaccine (#1) 04/14/1955 Pneumococcal Vaccine (1 of 2 - PCV) 1960 Depression Screening 1966 Preventative Health Evaluation 1972 DTap / Tdap / Td (1 - Tdap) 1973 Colon Cancer Screening (Colonoscopy) 10/13/1999 Breast Cancer Screening (Mammogram) 2004 Shingrix-Zoster Vaccine (1 of 2) 2004 Fall Risk Assessment 10/13/2019 Osteoporosis Screening (DEXA Scan) 10/13/2019 Influenza Vaccine (#1) 2024 RSV Adult > 60+ Yrs or Pregn ant (1 - 1-dose 75+ series) 2029 Hepatitis B Vaccines Aged Out No long er eligible based on patient's age to complete this topic RSV Ped < 20 months Aged Out No longe r eligible based on patient's age to complete this topic Care Teams Farm Operations Manager Relationship Specialty Start Date End Date Sukh Patel [address] [place] [facility] [address] PCP - General 07/01/17
--- OUTSIDE RECORDS SUMMARY | 2024-09-07 11:21 | XMS_ITS | Clinical Summary ---
Author Organization [facility] Address [address] [place] [address] Care Team Providers Care Doll Surgeon Name Role Phone Sukh Patel NP Primary Care Provider [phone] Surgical History Surgery Date Site/Laterality Comments COLONOSCOPY 02/03/09 PROCEDURE: HISTORICAL COLONOSCOPY; COMMENT: adenomas and diverticulosis; repeat in five years TONSILLECTOMY 1969 PROCEDURE: HISTORICAL TONSILLECTOMY COLONOSCOPY 2017 PROCEDURE: HISTORICAL COLONOSCOPY; COMMENT: NML, REPEAT IN 5 YEARS HERNIA REPAIR PROCEDURE: HISTORICAL HERNIA REPAIR/ING BREAST LUMPECTOMY 2017 Right PROCEDURE: HISTORICAL BREAST LUMPECTOMY Medical History Medical History Date Comments Pure hypercholesterolemia 04/06/2007 DX:Pur e hypercholesterolemia Other specified disorders of thyroid 03/18/2007 DX:Other specified disorders of thyroid; COMMENT: subclinical hypothyroidism 03/10 Mixed hyperlipidemia 03/18/2007 DX:Mixed hy perlipidemia Infiltrating ductal carcinom a of breast, 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 DX:Infiltrating ductal carci noma of breast, right (HCC); COMMENT: rt Family History Medical History Relation Name Comments Alcohol abuse Father Hypertension Father Other: aneurisym Father Alcohol abuse Mother Coronary artery disease Mother late r in life Emphysema Mother Stroke Mother Diabetes Other half-sister Breast cancer Neg Hx Colon cancer Neg Hx Ovarian cancer Neg Hx Relation Name Status Comments Father (Age 75) brain aneu rism, cig Mother (Age 77) uncertain whether [place] or CVA Other Sister (Age 62) [place] Social History Tobacco Use Types Packs/Day Years Used Date Smoking Tobacco: Every Day Cigarettes Smokeless Tobacco: Never Alcohol Use Standard Drinks/Week Comments Yes 0 (1 standard drink = 0.6 oz pur e alcohol) Sex and Gender Information Value Date Recorded Sex Assigned at Not on file Gender Identity Not on file Sexual Orientation Not on file Obstetrics History Last Filed Vital Signs Vital Sign Reading Time Taken Comments Blood Pressure 133/76 09/12/2023 10:23 AM EST Pulse 66 05/10/2024 11:15 AM EDT Temperature - - Respiratory Rate - - Oxygen Saturation - - Inhaled Oxygen Concentration - - Weight 42.8 kg (94 lb 6 oz) 09/12/2023 10:23 AM EST Height 149.9 cm (4' 11 ) 05/10/2024 11:15 AM EDT Body Mass Index 19.72 03/31/2023 9:34 AM EDT Plan of Treatment Upcoming Encounters Date Type Department Care Team (Late st Contact Info) Description 04/18/2025 10:30 AM EDT Appointment Radiology Department [address] [address] 05/09/2025 10:00 AM EDT Office Visit General Surgery - [place] 175 [facility] [address] [place] [phone] Marco Antonio Hassan MD 175 [facility] [place] [address] [place] [address] Health Maintenance Due Date Last Done Comments COVID-19 Vaccine (#1) 10/13/1959 Pneumococcal Vaccine: 65+ Years (1 of 2 - PCV) 1960 Zoster Vaccines (1 of 2) 1973 Cholesterol Screening (Lipid Panel) 07/13/2022 Colorectal Cancer Screening: Colonoscopy 07/13/2022 Depression Screening 07/13/2022 Falls Risk Assessment 07/13/2022 Hepatitis C Screening 07/13/2022 Hypertension/CHF/CAD Annual BMP Blood Test 07/13/2022 Osteoporosis Screening (Bone Density Screening) 07/13/2022 Social Influencers of Health Screening 07/13/2022 Influenza Vaccine (#1) 2024 Breast Cancer Screening 04/02/2026 04/02/20 24, 04/02/2024, 03/27/2023, Additional history exists DTaP,Tdap,and Td Vaccines (2 - Td or Tdap) 11/28/2026 11/28/2016 RSV Immunization Patients 60+ Years Old (1 - 1-dose 75+ series) 2029 HIB Vaccines Aged Out No longer eligi ble based on patient's age to complete this topic HPV Vaccines Aged Out No longer eligi ble based on patient's age to complete this topic Hepatitis A Vaccines Aged Out No long er eligible based on patient's age to complete this topic Hepatitis B Vaccines Aged Out No long er eligible based on patient's age to complete this topic IPV Vaccines Aged Out No longer eligi ble based on patient's age to complete this topic MMR Vaccines Aged Out No longer eligi ble based on patient's age to complete this topic Meningococcal ACWY Vaccine Aged Out N o longer eligible based on patient's age to complete this topic RSV Immunization Patients Under 20 months Aged Out No longer eligible based on patient's age to complete this topic Varicella Vaccines Aged Out No longer eligible based on patient's age to complete this topic Procedures Procedure Name Priority Date/Time Associated Diagnosis Comments SCREENING MAMMOGRAPHY BI 2-VIEW BREAST INC CAD Routine 04/02/2024 11:06 AM EDT Personal history of malignant neoplasm of breast Encounter for screening mammogram for malignant neoplasm of breast from Last 3 Months or Most Recently Relevant to Health Maintenance Results * SCREENING MAMMOGRAPHY BI 2-VIEW BREAST INC CAD (04/02/2024 11:06 AM EDT) Anatomical Region Laterality Modality Radiographic Ibeth ging 03/27/2023 10:3 8 AM EDT Narrative 04/02/2024 4:46 PM EDT This is a summary report. The complete report is available in the patient's medical record. If you cannot access the medical record, please contact the sending organization for a detailed fax or copy. History: Personal history of right breast lumpectomy for breast cancer in 2017. Study: SCREENING MAMMOGRAPHY BI 2-VIEW BREAST INC CAD Technique: Bilateral full-field digital screening mammography is obtained and read in conjunction with computer aided detection. ??Tomosynthesis as well as 2D C-View imaging were obtained. Comparison: Comparison made to multiple priors, most recent March 27, 2023, and most remote April 28, 2015. Breast composition: The breast tissue is heterogeneously dense, which may obscure small masses. Right breast: Postlumpectomy and posttreatment changes. ??No suspicious masses, suspicious calcifications or other abnormalities are seen. Left breast: No suspicious masses, suspicious calcifications or other abnormalities are seen. IMPRESSION: Impression: Bilateral breasts: Benign, no specific mammographic evidence of malignancy. ??Normal interval follow-up is recommended in 12 months. BI-RADS: Category 2: Benign [address] [address] [phone] Procedure Note Odalis Mak MD - 05/19/2024 This is a summary report. The complete report is available in thepatient's medical record. If you cannot access the medical record, pleasecontact the sending organization for a detailed fax or copy. History: Personal history of right breast lumpectomy for breast cancer [id number]. Study: SCREENING MAMMOGRAPHY BI 2-VIEW BREAST INC CAD Technique: Bilateral full-field digital screening mammography is obtainedand read in conjunction with computer aided detection. Tomosynthesis aswell as 2D C-View imaging were obtained. Comparison: Comparison made to multiple priors, most recent March, and most remote April 28, 2015. Breast composition: The breast tissue is heterogeneously dense, which mayobscure small masses. Right breast: Postlumpectomy and posttreatment changes. No suspiciousmasses, suspicious calcifications or other abnormalities are seen. Left breast: No suspicious masses, suspicious calcifications or otherabnormalities are seen. IMPRESSION: Impression: Bilateral breasts: Benign, no specific mammographic evidence ofmalignancy. Normal interval follow-up is recommended in 12 months. BI-RADS: Category 2: Benign [address] [id number] [phone] Marco Antonio Hassan MD IMG XR PROCEDURES from Last 3 Months or Most Recently Relevant to Health Maintenance Care Teams Doll Surgeon Relationship Specialty Start Date End Date Sukh Patel NP [address] [place], [place] PCP - General 07/01/17
== END 2024-09-07 11:09 | disposition home or self-care (01) ==
PROVIDERS: PCP Nurse Practitioner Family; Visit Provider Internal Medicine Endocrinology, Diabetes & Metabolism
DX: M81.0 Age-related osteoporosis without current pathological fracture (principal)
CPT/HCPCS: 99213

== ENCOUNTER 2024-09-07 11:29 | Outpatient (REF) | payer MEDICARE, SELFPAY ==
--- OUTSIDE RECORDS SUMMARY | 2024-09-07 12:26 | XMS_ITS | Clinical Summary ---
Author Organization [facility] Address [address] [place] [address] Care Team Providers Care Pipeline Gang Supervisor Name Role Phone Sukh Patel NP Primary Care Provider Surgical History Surgery Date Site/Laterality Comments COLONOSCOPY [...] rism, cig Mother (Age 77) uncertain whether [place] or CVA Other Sister (Age 62) [place] Social History Tobacco Use Types Packs/Day Years [...] 04/18/2025 10:30 AM EDT Appointment Radiology Department [address] [address] 05/09/2025 10:00 AM EDT Office Visit General Surgery - [place] 175 [facility] [address] [place] [phone] Marco Antonio Hassan MD 175 [facility] [place] [address] [place] [address] Health Maintenance Due Date Last Done Comments [...] in 12 months. BI-RADS: Category 2: Benign [address] [address] [phone] Procedure Note Odalis Mak MD - 05/19/2024 This is a summary report. The complete report is available in thepatient's medical record. If you cannot access the medical record, pleasecontact the sending organization for a detailed fax or copy. History: Personal history of right breast lumpectomy for breast cancer [id number]. Study: SCREENING MAMMOGRAPHY BI 2-VIEW BREAST INC [...] in 12 months. BI-RADS: Category 2: Benign [address] [id number] [phone] Marco Antonio Hassan MD IMG XR PROCEDURES from Last 3 Months or Most Recently Relevant to Health Maintenance Care Teams Pipeline Gang Supervisor Relationship Specialty Start Date End Date Sukh Patel NP [address] [place], [place] PCP - General 07/01/17
--- OUTSIDE RECORDS SUMMARY | 2024-09-07 12:26 | XMS_ITS | Clinical Summary ---
Author Organization [facility] Address 100 [facility] [address] [place] [address] Phone Care Team Providers Care Oceanographer Assistant Name Role Phone Sukh Patel NP Primary Care Provider [phone] Allergies Active Allergy Reactions Criticality Noted Date Comments Citalopram 07/01/2017 Penicillin V Other (see comments) 07/01/2017 Varenicline Other (see comments) 07/01/2017 Medications Probiotic Product (PROBIOTIC-10 PO) Take 1 capsule by mouth 1 (one) time each day Active Evening [place] Oil 500 MG capsule Take 1 capsule [...] patient's age to complete this topic Insurance [facility] ([id number]) [facility] ([id number]) Care Teams Oceanographer Assistant Relationship Specialty Start Date End Date Sukh Patel NP [address] [place] [address] PCP - General 08/14/20
--- OUTSIDE RECORDS SUMMARY | 2024-09-07 12:26 | XMS_ITS | Encounter Summary ---
Author Organization [facility] Address [address] [facility] [address] [place] [address] Phone Care Team Providers Care Shoe Repairer Name Role Phone Sukh Patel NP Primary Care Provider [phone] Encounter Details Date Type Department Care Team (Late st Contact Info) Description 03/06/2022 Telephone [facility] 100 [facility] [place] [address] [place] [address] Waqas Brasher MD Social History [...] refill for amlodipine 5 mg sent to [facility] on [facility]. She has called several times and hasn't been able to get it filled. Please advise Thank you documented in this encounter Plan of Treatment Not on file documented as of this encounter Visit Diagnoses Not on filedocumented in this encounter Care Teams Shoe Repairer Relationship Specialty Start Date End Date Sukh Patel NP [address] [place] [address] PCP - General 08/14/20 documented as of this encounter
--- OUTSIDE RECORDS SUMMARY | 2024-09-07 12:26 | XMS_ITS | Clinical Summary ---
Author Organization [facility] Address [address] [place] [address] Care Team Providers Care Oven Drier Tender Name Role Phone Sukh Patel Primary Care Provider [phone] Allergies Active Allergy Reactions Criticality Noted Date [...] age to complete this topic Care Teams Oven Drier Tender Relationship Specialty Start Date End Date Sukh Patel [address] [facility] [place] [address] PCP - General 07/01/17
[2024-09-07 12:34] LABS: Phosphorus 3.6 mg/dL (2.7-4.5)
[2024-09-07 12:47] LABS: Free T4 (Free Thyroxine) 0.98 ng/dL (0.71-1.85); Thyroid Stimulating Hormone 5.29 uIU/mL (0.32-4.0)
[2024-09-14 07:38] LABS: Prot Elec - Albumin 4.4 g/dL (3.8-4.8); Prot Elec - Alpha1 0.3 g/dL (0.2-0.3); Prot Elec - Alpha2 0.8 g/dL (0.5-0.9); Prot Elec - Beta 1 0.4 g/dL (0.4-0.6); Prot Elec - Beta 2 0.2 g/dL (0.2-0.5); Prot Elec - Gamma 0.7 g/dL (0.8-1.7); Prot Elec - Total Protein 6.8 g/dL (6.1-8.1)
== END 2024-09-07 11:30 | disposition home or self-care (01) ==
LOC: HO.10HDL 11:29
PROVIDERS: Visit Provider Internal Medicine Endocrinology, Diabetes & Metabolism
DX: M81.0 Age-related osteoporosis without current pathological fracture (principal); I10 Essential (primary) hypertension
CPT/HCPCS: 36415; 84100; 84165; 84439; 84443; 99212

== ENCOUNTER 2024-09-24 10:30 | Outpatient (REF) | payer MEDICARE, SELFPAY ==
--- OUTSIDE RECORDS SUMMARY | 2024-09-24 12:42 | XMS_ITS | Encounter Summary ---
Author Organization [facility] Address [address] [facility] [address] 200 [place] [address] Phone Care Team Providers Care Sales Performance Manager Name Role Phone Sukh Patel NP Primary Care Provider [phone] Encounter Details Date Type Department Care Team (Late st Contact Info) Description 03/06/2022 Telephone [facility] [address] [place] [address] Waqas Brasher MD Social History [...] refill for amlodipine 5 mg sent to [facility]. She has called several times and hasn't been able to get it filled. Please advise Thank you documented in this encounter Plan of Treatment Not on file documented as of this encounter Visit Diagnoses Not on filedocumented in this encounter Care Teams Sales Performance Manager Relationship Specialty Start Date End Date Sukh Patel NP [address] [place] [address] PCP - General 08/14/20 documented as of this encounter
--- OUTSIDE RECORDS SUMMARY | 2024-09-24 12:42 | XMS_ITS | Clinical Summary ---
Author Organization [facility] Address 100 [facility] [address] [place] [address] Phone Care Team Providers Care Plastic Shaper Name Role Phone Sukh Patel NP Primary Care Provider [phone] Allergies Active Allergy Reactions Criticality Noted Date Comments Citalopram 07/01/2017 Penicillin V Other (see comments) 07/01/2017 Varenicline Other (see comments) 07/01/2017 Medications Probiotic Product (PROBIOTIC-10 PO) Take 1 capsule by mouth 1 (one) time each day Active Evening Ros[place] Oil 500 MG capsule Take 1 capsule [...] patient's age to complete this topic Insurance [facility] PPO BLUE([id number]) [facility] PPO BLUE([id number]) Care Teams Plastic Shaper Relationship Specialty Start Date End Date Sukh Patel NP [address] [place] [address] PCP - General 08/14/20
--- OUTSIDE RECORDS SUMMARY | 2024-09-24 12:42 | XMS_ITS | Clinical Summary ---
Author Organization [facility] Address [address] [place] [address] Care Team Providers Care Transplant Coordinator Name Role Phone Skuh Patel NP Primary Care Provider Surgical History [...] rism, cig Mother (Age 77) uncertain whether [place] or CVA Other Sister (Age 62) [place] Social History Tobacco Use Types Packs/Day Years Used Date Smoking Tobacco: Every Day Cigarettes Smokeless Tobacco: Never Alcohol Use Standard Drinks/Week Comments Yes 0 (1 standard drink = 0.6 oz pur e alcohol) Comments Unknown Sex and Gender Information Value Date Recorded Sex Assigned at Not on file Legal Sex Female 8:36 PM EST Gender Identity Not on file [...] 04/18/2025 10:30 AM EDT Appointment Radiology Department [address] [address] 05/09/2025 10:00 AM EDT Office Visit General Surgery - [place] [address] [phone] Marco Antonio Hassan MD [address] [address] Health Maintenance Due Date Last Done Comments COVID-19 Vaccine (#1) 10/13/1960 Pneumococcal Vaccine: 50+ Years (1 of 2 - PCV) 1973 Zoster Vaccines (1 of 2) 1973 Cholesterol [...] patient's age to complete this topic Meningococcal B Vacine Aged Out No lo nger eligible based on patient's age to complete [...] in 12 months. BI-RADS: Category 2: Benign [address] [id number] [phone] Procedure Note Odalis Mak MD - 05/19/2024 This is a summary report. The complete report is available in thepatient's medical record. If you cannot access the medical record, pleasecontact the sending organization for a detailed fax or copy. History: Personal history of right breast lumpectomy for breast cancer [id number]. Study: SCREENING MAMMOGRAPHY BI 2-VIEW BREAST INC [...] in 12 months. BI-RADS: Category 2: Benign [address] [address] [phone] Marco Antonio Hassan MD IMG XR PROCEDURES Final Result from Last 3 Months or Most Recently Relevant to Health Maintenance Care Teams Transplant Coordinator Relationship Specialty Start Date End Date Sukh Patel NP [address] [facility] [place] PCP - General 07/01/17
--- OUTSIDE RECORDS SUMMARY | 2024-09-24 12:42 | XMS_ITS | Clinical Summary ---
Author Organization [facility] Address [address] [place] [address] Care Team Providers Care Loft Worker Pile Driving Name Role Phone Sukh Patel Primary Care Provider [phone] Allergies Active Allergy Reactions Criticality Noted Date [...] age to complete this topic Care Teams Loft Worker Pile Driving Relationship Specialty Start Date End Date Sukh Patel [address] [place] [facility] [place] [address] PCP - General 07/01/17
== END 2024-09-24 10:31 | disposition home or self-care (01) ==
LOC: HO.HMGCLNP 10:30
PROVIDERS: PCP Nurse Practitioner Family; Visit Provider Internal Medicine Endocrinology, Diabetes & Metabolism
DX: M81.0 Age-related osteoporosis without current pathological fracture (principal)
CPT/HCPCS: 86335

== ENCOUNTER 2024-11-09 10:15 | Outpatient (REF) | payer MEDICARE, SELFPAY ==
--- OUTSIDE RECORDS SUMMARY | 2024-11-09 12:06 | XMS_ITS | Clinical Summary ---
Author Organization [facility] Address [address] [place] [address] Care Team Providers Care Extracorporeal Technician Name Role Phone Sukh Patel Primary Care Provider [phone] Allergies Active Allergy Reactions Criticality Noted Date [...] age to complete this topic Care Teams Extracorporeal Technician Relationship Specialty Start Date End Date Sukh Patel [address] [facility] [place] [address] PCP - General 07/01/17
--- OUTSIDE RECORDS SUMMARY | 2024-11-09 12:06 | XMS_ITS | Clinical Summary ---
Author Organization [facility] Address [address] [place] [address] Care Team Providers Care Supervisor Pipe Finishing Name Role Phone Sukh Patel NP Primary [...] Infiltrating ductal carcinom a of breast, right 06/17/2017 DX:Infiltrating ductal carci noma of breast, [...] rism, cig Mother (Age 77) uncertain whether [place] or CVA Other Sister (Age 62) [place] Social History Tobacco Use Types Packs/Day Years [...] 04/18/2025 10:30 AM EDT Appointment Radiology Department [address] [address] 05/09/2025 10:00 AM EDT Office Visit General Surgery - [place] [address] [phone] Marco Antonio Hassan MD 175 [facility] 110 [place] [address] Health Maintenance Due Date Last Done Comments [...] Td or Tdap) 11/28/2026 11/28/2016 RSV Immunization Adult Patients (1 - 1-dose 75+ series) 2029 HIB [...] age to complete this topic Meningococcal B Vaccine Aged Out No l onger eligible based on patient's age to complete [...] in 12 months. BI-RADS: Category 2: Benign [address] [address] [phone] Procedure Note Odalis Mak MD - 05/19/2024 This is a summary report. The complete report is available in thepatient's medical record. If you cannot access the medical record, pleasecontact the sending organization for a detailed fax or copy. History: Personal history of right breast lumpectomy for breast cancer [id number]. Study: SCREENING MAMMOGRAPHY BI 2-VIEW BREAST INC [...] in 12 months. BI-RADS: Category 2: Benign [address] [address] [phone] Marco Antonio Hassan MD IMG XR PROCEDURES Final Result from Last 3 Months or Most Recently Relevant to Health Maintenance Care Teams Supervisor Pipe Finishing Relationship Specialty Start Date End Date Sukh Patel NP 262 [facility] [place] Christy PCP - General 07/01/17
--- OUTSIDE RECORDS SUMMARY | 2024-11-09 12:06 | XMS_ITS | Clinical Summary ---
Author Organization [facility] Address [address] [facility] [address] [place] [address] Phone Care Team Providers Care Extension Agent Name Role Phone Sukh Patel NP Primary Care Provider [phone] Allergies Active Allergy Reactions Criticality Noted Date Comments Citalopram 07/01/2017 Penicillin V Other (see comments) 07/01/2017 Varenicline Other (see comments) 07/01/2017 Medications Probiotic Product (PROBIOTIC-10 PO) Take 1 capsule by mouth 1 (one) time each day Active Evening [place] Oil 500 MG capsule Take 1 capsule [...] Colorectal Cancer Screening: Sigmoidoscopy 10/13/2003 Influenza Vaccine (Season Ended) 2025 Hepatitis B Vaccine Aged Out No longe r eligible based on patient's age to complete this topic Insurance [facility] PPO BLUE([id number]) [facility] PPO BLUE([id number]) Care Teams Extension Agent Relationship Specialty Start Date End Date Sukh Patel NP [address] [place] [address] PCP - General 08/14/20
--- OUTSIDE RECORDS SUMMARY | 2024-11-09 12:06 | XMS_ITS | Encounter Summary ---
Author Organization [facility] Address [address] [address] [address] 200 [place] [address] Phone Care Team Providers Care Weir Fisher Name Role Phone Sukh Patel NP Primary Care Provider [phone] Encounter Details Date Type Department Care Team (Late st Contact Info) Description 03/06/2022 Telephone [facility] [address] [place] [address] Waqas Brasher MD Social History [...] refill for amlodipine 5 mg sent to [facility]. She has called several times and hasn't been able to get it filled. Please advise Thank you documented in this encounter Plan of Treatment Not on file documented as of this encounter Visit Diagnoses Not on filedocumented in this encounter Care Teams Weir Fisher Relationship Specialty Start Date End Date Sukh Patel NP [address] [place] [address] PCP - General 08/14/20 documented as of this encounter
[2024-11-09 13:08] LABS: MANUAL DIFF FLAG NO
[2024-11-09 13:21] LABS: Appearance Urine Clear; Color Urine Dark Yellow; Glucose Urine UA Negative (Negative); Leukocyte Esterase Urine Trace (Negative); Nitrite Urine Negative (Negative); PH 5.5 (5.0-9.0); Specific Gravity - Urine 1.025 (1.005-1.025); UMIC TRIGGER UACC YES; Urine Blood Negative (Negative); Urine Ketones Trace mg/dL (Negative); Urine Protein Negative (Neg-Trace)
[2024-11-09 13:35] LABS: Basophils Absolute Auto 0.1 X10*3/uL (0.0-0.2); Basophils Percent Auto 0.8 % (0-2); Eosinophils Absolute Auto 0.2 X10*3/uL (0.0-0.4); Eosinophils Percent Auto 2.7 % (0-4); Hematocrit 42.7 % (37.0-47.0); Hemoglobin 14.1 g/dl (12.0-16.0); Imm Gran Abs Auto 0.01 X10*3/uL (0.00-0.03); Imm Gran Pct Auto 0.2 % (0.0-0.4); Lymphocytes Absolute Auto 2.2 X10*3/uL (1.2-4.9); Lymphocytes Percent Auto 34.3 % (20-40); Mean Corpuscular Hemoglobin 30.5 pg (27.0-33.0); Mean Corpuscular Volume 92.4 fL (80.0-98.0); Mean Platelet Volume 10.5 fL (9.4-12.3); Monocytes Absolute Auto 0.6 X10*3/uL (0.1-1.2); Monocytes Percent Auto 9.9 % (2-11); Neutrophils Absolute Auto 3.3 x10*3/uL (2.0-8.3); Neutrophils Percent Auto 52.1 % (45-73); Platelet Count 271 X10*3/uL (160-400); Red Blood Count 4.62 X10*6/uL (4.20-5.50); Red Cell Distribution Width 14.2 % (11.0-16.0); White Blood Count 6.3 X10*3/uL (4.8-10.8)
[2024-11-09 13:39] LABS: Bacteria Urine Trace (None Seen); Hyaline Casts Urine 0-2 /LPF (0-2); RBC Urine 0-2 /HPF (0-2); WBC Urine 0-5 /HPF (0-5)
[2024-11-09 13:53] LABS: Creatinine Urine 176.92 mg/dL; Protein/Creatinine Ratio, Ur 0.09 (<0.2); Total Protein Urine Random 16 mg/dL (<12)
[2024-11-09 13:59] LABS: Creatinine, mg/dL 85.38
[2024-11-09 14:24] LABS: Alanine Aminotransferase 11 U/L (0-31); Albumin Level 4.1 g/dL (3.5-5.0); Alkaline Phosphatase 72 U/L (39-117); Anion Gap 10 (12-20); Aspartate Amino Transferase 21 U/L (5-31); Bilirubin Total 0.3 mg/dL (0.0-1.0); Blood Urea Nitrogen 16 mg/dL (9-16); Calcium 9.7 mg/dL (8.4-10.2); Carbon Dioxide 26 mmol/L (22-29); Chloride 107 mmol/L (96-108); Cholesterol 274 mg/dL (<200); Estimated Glomerular Filt Rate > 60; Glucose Fasting 92 mg/dL (60-99); HDL Cholesterol 50 mg/dL (>40); LDL Cholesterol Calculated 197 mg/dL (<100); Potassium 3.8 mmol/L (3.3-5.1); Sodium 139 mmol/L (135-145); Triglycerides 139 mg/dL (<150)
[2024-11-09 14:41] LABS: TSH reflex Free T4 4.83 uIU/mL (0.32-4.0)
[2024-11-09 14:51] LABS: Creatinine, 24Hr Urine 0.7 G/Day (1.0-2.0); Total Volume 24 Hour Urine 825 mL
[2024-11-09 17:10] LABS: Free T4 (Free Thyroxine) 1.16 ng/dL (0.71-1.85)
[2024-11-12 16:13] LABS: Calcium, 24 Hr Urine 71 mg/24 h; Calcium/Creatinine Ratio 105 mg/g creat (30-275); Creatinine 24Hr Urine 0.68 g/24 h (0.50-2.15)
== END 2024-11-09 10:16 | disposition home or self-care (01) ==
LOC: HO.HMGCLDS 10:15
PROVIDERS: Internal Medicine Endocrinology, Diabetes & Metabolism; Internal Medicine Nephrology; PCP Nurse Practitioner Family; Visit Provider Nurse Practitioner Family
DX: F41.9 Anxiety disorder, unspecified (principal); E03.9 Hypothyroidism, unspecified; I15.0 Renovascular hypertension; M81.0 Age-related osteoporosis without current pathological fracture
CPT/HCPCS: 36415; 80053; 80061; 81001; 82340; 82570; 84156; 84439; 84443; 85025

== ENCOUNTER 2024-11-11 08:04 | Outpatient (AMB) | payer MEDICARE, SELFPAY ==
--- OUTSIDE RECORDS SUMMARY | 2024-11-11 08:09 | XMS_ITS | Clinical Summary ---
Author Organization [facility] it Address [address] [place] [address] Care Team Providers Care Triple Drum Operator Name Role Phone Sukh Patel NP Primary [...] Infiltrating ductal carcinom a of breast, right (CMS/HCC V24, CMS/HCC V28) 06/17/2017 DX:Infiltrating ductal carci noma of breast, [...] rism, cig Mother (Age 77) uncertain whether HI or CVA Other Sister (Age 62) HI Social History Tobacco Use Types Packs/Day Years [...] 04/18/2025 10:30 AM EDT Appointment Radiology Department [address] [phone] 05/09/2025 10:00 AM EDT Office Visit General Surgery - [place] [address] [phone] Marco Antonio Hassan MD [address] [address] Health Maintenance Due Date Last Done Comments [...] Influencers of Health Screening 07/13/2022 Influenza Vaccine (Season Ended) 2025 Breast Cancer Screening 04/02/2026 04/02/20 24, 04/02/2024, [...] in 12 months. BI-RADS: Category 2: Benign [address] [id number] [phone] Procedure Note Odalis Mak MD - 05/19/2024 This is a summary report. The complete report is available in thepatient's medical record. If you cannot access the medical record, pleasecontact the sending organization for a detailed fax or copy. History: Personal history of right breast lumpectomy for breast cancer [id number]. Study: SCREENING MAMMOGRAPHY BI 2-VIEW BREAST INC [...] in 12 months. BI-RADS: Category 2: Benign [address] [address] [phone] Marco Antonio Hassan MD IMG XR PROCEDURES Final Result from Last 3 Months or Most Recently Relevant to Health Maintenance Care Teams Triple Drum Operator Relationship Specialty Start Date End Date Sukh Patel NP [address] [place], [place] PCP - General 07/01/17
--- OUTSIDE RECORDS SUMMARY | 2024-11-11 08:09 | XMS_ITS | Clinical Summary ---
Author Organization [facility] Address [address] [place] [address] Phone Care Team Providers Care Chief Informatics Officer Name Role Phone Sukh Patel NP Primary Care Provider [phone] Allergies Active Allergy Reactions Criticality Noted Date Comments Citalopram 07/01/2017 Penicillin V Other (see comments) 07/01/2017 Varenicline Other (see comments) 07/01/2017 Medications Probiotic Product (PROBIOTIC-10 PO) Take 1 capsule by mouth 1 (one) time each day Active Evening [place] Oil 500 MG capsule Take 1 capsule [...] Comments Breast Cancer Screening 1954 Pneumococcal Vaccine: 50+ Ye ars (1 of 2 - PCV) 1960 Colorectal Cancer Screening: Annual FOBT 10/13/2003 Colorectal Cancer Screening: Colonoscopy 10/13/2003 Colorectal Cancer Screening: Sigmoidoscopy 10/13/2003 Influenza Vaccine (Season Ended) 2025 Hepatitis B Vaccine Aged Out No longe r eligible based on patient's age to complete this topic Insurance [facility] PPO Blue([id number]) [facility] PPO Blue([id number]) Care Teams Chief Informatics Officer Relationship Specialty Start Date End Date Sukh Patel NP [address] [place] [address] PCP - General 08/14/20
--- OUTSIDE RECORDS SUMMARY | 2024-11-11 08:09 | XMS_ITS | Clinical Summary ---
Author Organization [facility] Address [address] [place] [address] Care Team Providers Care Instructional Aide Name Role Phone Sukh Patel Primary Care Provider [phone] Allergies Active Allergy Reactions Criticality Noted Date [...] age to complete this topic Care Teams Instructional Aide Relationship Specialty Start Date End Date Sukh Patel [address] [place] [facility] [place] [address] PCP - General 07/01/17
--- OUTSIDE RECORDS SUMMARY | 2024-11-11 08:09 | XMS_ITS | Encounter Summary ---
Author Organization [facility] Address [address] [facility] [address] [place] [address] Phone Care Team Providers Care Spark Tester Name Role Phone Sukh Patel NP Primary Care Provider [phone] Encounter Details Date Type Department Care Team (Late st Contact Info) Description 03/06/2022 Telephone [facility] [address] [place] [address] Waqas Brasher MD Social History [...] refill for amlodipine 5 mg sent to [facility]. She has called several times and hasn't been able to get it filled. Please advise Thank you documented in this encounter Plan of Treatment Not on file documented as of this encounter Visit Diagnoses Not on filedocumented in this encounter Care Teams Spark Tester Relationship Specialty Start Date End Date Sukh Patel NP [address] [place] [address] PCP - General 08/14/20 documented as of this encounter
--- NOTE | 2024-11-11 08:13 | A.OFFVIS_ITS ---
Vital Signs 11/11/24 08:24 Height 4 ft 11 in Weight 97 lb BMI 19.6 BP 146/76 H Blood Pressure Location Lt brachial Position Sitting Pulse 76 Intake Visit Reasons: + ayush/Antonina trotter 09/04/2021 Intake Note: Patient new consult for positive Fior peacock with Antonina was 09/04/2020 for chronic diarrhea/no lab done. Patient denies any GI issues. Street Light Inspector Required: No Accompanied by: Self / Same As Patient Allergies varenicline [From CHANTIX] Allergy (Severe, Verified 11/11/24 08:13) HIVES erythromycin base [ERYTHROMYCIN BASE] Allergy (Intermediate, Verified 11/11/24 08:13) RASH Macrolide Antibiotics [MACROLIDE ANTIBIOTICS] Allergy (Intermediate, Verified 11/11/24 08:13) RASH Sulfa (Sulfonamide Antibiotics) [SULFA (SULFONAMIDE ANTIBIOTICS)] Allergy (Intermediate, Verified 11/11/24 08:13) RASH amoxicillin Allergy (Unknown, Verified 11/11/24 08:13) Unknown barium sulfate Allergy (Unknown, Verified 11/11/24 08:13) Hives penicillin V Allergy (Unknown, Verified 11/11/24 08:13) Rash bupropion [From Wellbutrin] Adverse Reaction (Intermediate, Verified 11/11/24 08:13) Tinnitus sertraline [From Zoloft] Adverse Reaction (Mild, Verified 11/11/24 08:13) Insomnia citalopram Adverse Reaction (Unknown, Verified 11/11/24 08:13) Burning sensation all over body Erythromycin Allergy (Unknown, Uncoded 09/07/24 10:35) Unsure Sulfa drugs Allergy (Unknown, Uncoded 09/07/24 10:35) Unsure sertraline Adverse Reaction (Uncoded 09/07/24 10:35) Insomnia Medication List - Last Reconciled 11/11/24 by Sandy Kirby CNP amlodipine 0.5 tabs PO QAM atenolol 37.5 mg (1.5 x 25 mg) PO DAILY calcium carbonate-vitamin D3 600 mg-10 mcg (400 unit) (Calcium with Vitamin D) 1 tab PO BID 30 days diazepam 5 mg PO BID PRN 30 days levothyroxine 25 mcg PO DAILY lisinopril 40 mg PO DAILY nitrofurantoin macrocrystal 100 mg PO BEDTIME omeprazole 20 mg PO DAILY HPI HPI + cologuard/Antonina fior 09/04/2021: Details: Patient is a 69-year-old female with PMH hypothyriodism, depression with anxiety, PTSD, HTN, HLD, osteoporosis and seasonal allergy Pt is here today for further evaluation of (+) cologuard. She reports regular BMs, type 2-4 on bristol stool chart, denies concern for constipation. Her last colonoscopy was with us in 2018. Shares a recent scare for blood cancer. States workup by outside provider was negative. Expresses her anxiety around the positive Cologuard findings. Patient denies: systemic symptoms, n/v, appetite changes, unintentional wt loss, dysphasia, cardiopulmonary symptoms, bladder changes or melena/hematochezia. She denies difficulty with anesthesia Social hx: denies ETOH use marijuana use daily, denies other recreational drug use current smoker, 1ppd. 55 pack year history personal hx of breast CA 2017, remission X 7 years (2018) Family hx: denies PFSH Medical History (Reviewed 07/19/24 @ 09:39 by Vazquez Her, [facility]) Renal artery stenosis Hypothalamic hypothyroidism Hypertension Surgical History Hx of lumpectomy Femoral hernia of right side History of tonsillectomy Family History Family/Other Brain cancer Social History Household Members: None Housing: House Are you a primary childcare director to a significant other at home: No Do you presently have visiting nurse or other home services: No Alcohol intake: current Alcohol intake frequency: holidays/special occasions only Patient Tobacco Use Status: Current everyday Tobacco user Tobacco use type: Cigarette Cigarette Packs Per Day: 1 e-Cigarette/Vaping Use: Never Used Second Hand Smoke Exposure: No Substance Use Type: Marijuana service: No Current occupational status: employed 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 Current occupational exposures/hazards: No Cognitive needs: No Hearing needs: Yes Vision needs: No Physical Exam Vital Signs: Last Vital Signs Pulse 76 11/11/24 08:24 BP 146/76 H 11/11/24 08:24 BMI result Body Mass Index 19.6 Const General: healthy appearing, no acute distress and well developed Nutritional Appearance: well nourished and thin Orientation/consciousness: patient oriented x3 HEENT Head: Yes normal to inspection, Yes normocephalic and Yes atraumatic Face and sinus: Yes normal facial exam Eyes General: appearance normal, both eyes and all related structures Neck Neck: Yes normal visual inspection Resp Effort & Inspection: normal respiratory effort, able to speak in complete sentences, no tracheal deviation and symmetric chest movement Auscultation: clear to auscultation bilaterally Cardio Jugular venous distension: no JVD Rate: regular rate Rhythm: regular rhythm Heart sounds: S1 normal heart sound present, S2 normal heart sound present, no gallops and no murmurs GI Inspection: Yes normal to inspection and No distended Palpation (GI): Soft to palpation, not firm, nontender and No hepatosplenomegaly present Auscultation: normal bowel sounds Neuro General: patient oriented x3 Gait exam (Neuro): Normal gait present Psych Appearance: grossly normal Mental Status: mental status grossly normal Speech and movement: Normal speech and movement present Affect: normal affect Attitude: cooperative Thought process: Normal thought process present Thought content: Normal thought content present Insight: Good insight present (Psych) Judgement: Good judgement present (Psych) Results Reviewed Results Reviewed: Data pulled from historical visits: 04/16/2018 colonoscopy 1. colonic polyps x2, polypectomy 2. diverticulosis recommendation for repeat in 5 04/16/2018 Pathology material received: A. Ascending colon polyp B. polyp at 50 cm Diagnosis: A. Colon, ascending, biopsy: ascending-fragment for unremarkable colonic mucosa B. polyp at 50 cm, biopsies:colon at 50CM, fragment of hyperplastic colonic mucosa . Assessment & Plan Assessment & Plan (1) Positive colorectal cancer screening using Cologuard test: Code(s): R19.5 - Other fecal abnormalities Category: Medical Plan: Discussed positive Cologuard results. Reassured she is asymptomatic. Education that there is a higher chance of false-positive with advanced age. However, advised colonoscopy for definitive findings-she is agreeable. Reviewed prep and procedure expectations. Prep Rx'd to preferred pharmacy. Plan As above Time: I spent a total of 45 minutes on the date of encounter which includes: Preparing to see the patient (reviewed previous documentation, test results and medical history) Performing a medically appropriate exam and/or evaluation Ordering medications, tests, and procedures Documenting clinical information in the health record Medications: New polyethylene glycol 3350 (Miralax) per colonoscopy prep instructions 238 grams PO ONCE 238 grams 0RF bisacodyl per colonoscopy prep instructions 5 mg PO ONCE 1 day 4 tabs 0RF Coding Level of Care Code New Pt New Pt Level 3 (26034) Patient Type New Diagnoses Positive colorectal cancer screening using Cologuard test R19.5
[2024-11-11 08:24] VITALS: BP 146/76; PULSE 76; BMI 19.6
== END 2024-11-11 13:36 | disposition home or self-care (01) ==
LOC: HO.HGI 08:05
PROVIDERS: PCP Nurse Practitioner Family; Visit Provider Nurse Practitioner Family
DX: R19.5 Other fecal abnormalities (principal)
CPT/HCPCS: 99204

== ENCOUNTER → 2024-11-11 08:04 | Outpatient (BNVA) | payer MEDICARE, SELFPAY | PROVIDERS: PCP Nurse Practitioner Family; Visit Provider Nurse Practitioner Family | DX: R19.5 Other fecal abnormalities (principal) | CPT/HCPCS: 99202 ==

== ENCOUNTER 2024-11-16 09:55 | Outpatient (AMB) | payer MEDICARE, SELFPAY ==
--- NOTE | 2024-11-16 10:08 | HO.NEPHOV_ITS ---
Vital Signs 11/16/24 10:11 Height 4 ft 11 in Weight 97 lb BMI 19.6 BP 132/70 Blood Pressure Location Lt brachial Position Sitting Pulse 59 Pulse Source Pulse Oximeter Pulse Oximetry (%) 98 Oxygen Delivery Method Room Air Intake Visit Reasons: Per MD Commercial Or Institutional Cleaner Required: No Accompanied by: Self / Same As Patient Allergies varenicline [From CHANTIX] Allergy (Severe, Verified 11/16/24 10:10) HIVES erythromycin base [ERYTHROMYCIN BASE] Allergy (Intermediate, Verified 11/16/24 10:10) RASH Macrolide Antibiotics [MACROLIDE ANTIBIOTICS] Allergy (Intermediate, Verified 11/16/24 10:10) RASH Sulfa (Sulfonamide Antibiotics) [SULFA (SULFONAMIDE ANTIBIOTICS)] Allergy (Intermediate, Verified 11/16/24 10:10) RASH amoxicillin Allergy (Unknown, Verified 11/16/24 10:10) Unknown barium sulfate Allergy (Unknown, Verified 11/16/24 10:10) Hives penicillin V Allergy (Unknown, Verified 11/16/24 10:10) Rash bupropion [From Wellbutrin] Adverse Reaction (Intermediate, Verified 11/16/24 10:10) Tinnitus sertraline [From Zoloft] Adverse Reaction (Mild, Verified 11/16/24 10:10) Insomnia citalopram Adverse Reaction (Unknown, Verified 11/16/24 10:10) Burning sensation all over body Erythromycin Allergy (Unknown, Uncoded 09/07/24 10:35) Unsure Sulfa drugs Allergy (Unknown, Uncoded 09/07/24 10:35) Unsure sertraline Adverse Reaction (Uncoded 09/07/24 10:35) Insomnia HPI Comments Details: Fabiola was seen in follow-up of her hypertension. Her BP had been labile lately, which she thinks is due to stressors. She has history of breast cancer and had undergone lumpectomy radiation and chemotherapy. Her blood pressure had gone up during her chemotherapy time. She does not have any chest pain, shortness of breath, proximal nocturnal dyspnea, orthopnea, pedal edema. She does not take excess sodium in the diet or nonsteroidal anti-inflammatories. She has no orthostatic symptoms. She maintains compliance with her medications. There were no new active issues at the time of this office visit [facility] Medical History Renal artery stenosis Hypothalamic hypothyroidism Hypertension Surgical History Hx of lumpectomy Femoral hernia of right side History of tonsillectomy Family History Family/Other Brain cancer Social History Household Members: None Housing: House Are you a primary insurance healthcare representative to a significant other at home: No Do you presently have visiting nurse or other home services: No Alcohol intake: current Alcohol intake frequency: holidays/special occasions only Patient Tobacco Use Status: Current everyday Tobacco user Tobacco use type: Cigarette Cigarette Packs Per Day: 1 e-Cigarette/Vaping Use: Never Used Second Hand Smoke Exposure: No Substance Use Type: Marijuana service: No Current occupational status: employed 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 Current occupational exposures/hazards: No Cognitive needs: No Hearing needs: Yes Vision needs: No Review of Systems Const All systems reviewed & are unremarkable except as noted in HPI and below Physical Exam Vital Signs: Last Vital Signs Pulse 59 11/16/24 10:11 BP 150/78 H 11/16/24 10:11 Pulse Ox 98 11/16/24 10:11 Oxygen Delivery Method Room Air 11/16/24 10:11 BMI result Body Mass Index 19.6 Const General: comfortable and no acute distress Orientation/consciousness: patient oriented x3 HEENT Head: Yes normocephalic Mouth: Normal oral and palatal mucosa present Eyes EOM: EOMs intact bilaterally Neck Neck: Yes supple Resp Auscultation: clear to auscultation bilaterally Cardio Jugular venous distension: no JVD Rate: regular rate GI Palpation (GI): Soft to palpation Auscultation: normal bowel sounds General: Yes no CVA tenderness Back/Spine/Pelvis Back: no CVA tenderness Skin General skin exam: no rashes or lesions noted Neuro General: patient oriented x3 and moves all extremities Extrem General: Yes no pedal edema Results Reviewed Nephrology Results: Hgb 14.1 g/dl (12.0-16.0) 11/09/24 WBC 6.3 X10*3/uL (4.8-10.8) 11/09/24 Plt Count 271 X10*3/uL (160-400) 11/09/24 Sodium 139 mmol/L (135-145) 11/09/24 Potassium 3.8 mmol/L (3.3-5.1) 11/09/24 Chloride 107 mmol/L (96-108) 11/09/24 Carbon Dioxide 26 mmol/L (22-29) 11/09/24 BUN 16 mg/dL (9-16) 11/09/24 Creatinine 0.79 mg/dL (0.5-1.4) 11/09/24 Calcium 9.7 mg/dL (8.4-10.2) 11/09/24 Phosphorus 3.6 mg/dL (2.7-4.5) 09/07/24 Urine Protein Negative mg/dL (Neg-Trace) 11/09/24 Urine Creatinine 176.92 mg/dL 11/09/24 Protein/Creatinin Ratio 0.09 (<0.2) 11/09/24 Assessment & Plan Assessment & Plan (1) Hypertension: Code(s): I10 - Essential (primary) hypertension Category: Medical Qualifiers: Hypertension type: renovascular hypertension Qualified Code(s): I15.0 - Renovascular hypertension Plan Fabiola has longstanding hypertension. She maintains a low-sodium diet. 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 I asked her to take ACEI and beta fan AM and Amlodipine at night. I plan to arrange Doppler of renal arteries with time to monitor the caliber of her renal arteries. Her serum potassium and renal functions had been stable. She avoids nonsteroidal anti- inflammatories .Her volume status was optimal. I did not make any medication changes today. All her questions were answered. Follow-up appointment was given Orders: Orders Protein Creatinine Ratio, Ur 6 Months I15.0 - Renovascular hypertension Creatinine 6 Months I15.0 - Renovascular hypertension Blood Urea Nitrogen 6 Months I15.0 - Renovascular hypertension Electrolytes 6 Months I15.0 - Renovascular hypertension Calcium 6 Months I15.0 - Renovascular hypertension Coding Level of Care Code Est Pt Level 4 (37764) Diagnoses Renovascular hypertension I15.0 Hypertension type: renovascular hypertension
[2024-11-16 10:11] VITALS: BP 132/70; PULSE 59; O2SAT 98; BMI 19.6
--- OUTSIDE RECORDS SUMMARY | 2024-11-16 11:29 | XMS_ITS | Clinical Summary ---
Author Organization [facility] Address [address] [place] [address] Care Team Providers Care Brazing Machine Operator Automatic Name Role Phone Sukh Patel Primary Care Provider [phone] Allergies Active Allergy Reactions Criticality Noted Date [...] age to complete this topic Care Teams Brazing Machine Operator Automatic Relationship Specialty Start Date End Date Sukh Patel [address] [facility] [place] [address] PCP - General 07/01/17
--- OUTSIDE RECORDS SUMMARY | 2024-11-16 11:29 | XMS_ITS | Clinical Summary ---
Author Organization [facility] Address [address] [facility] [address] [place] [address] Phone Care Team Providers Care Bailiff Name Role Phone Sukh Patel NP Primary Care Provider [phone] Allergies Active Allergy Reactions Criticality Noted Date Comments Citalopram 07/01/2017 Penicillin V Other (see comments) 07/01/2017 Varenicline Other (see comments) 07/01/2017 Medications Probiotic Product (PROBIOTIC-10 PO) Take 1 capsule by mouth 1 (one) time each day Active Evening [place] Oil 500 MG capsule Take 1 capsule [...] Ye ars (1 of 2 - PCV) 1973 Colorectal Cancer Screening: Annual FOBT 10/13/2003 Colorectal Cancer Screening: Colonoscopy 10/13/2003 Colorectal Cancer Screening: Sigmoidoscopy 10/13/2003 Influenza Vaccine (Season Ended) 2025 Hepatitis B Vaccine Aged Out No longe r eligible based on patient's age to complete this topic Insurance [facility] PPO Blue([id number]) [place] [address] PPO Blue([id number]) Care Teams Bailiff Relationship Specialty Start Date End Date Sukh Patel NP [address] [place] [address] PCP - General 08/14/20
--- OUTSIDE RECORDS SUMMARY | 2024-11-16 11:29 | XMS_ITS | Clinical Summary ---
Author Organization [facility] [employer] [facility] it Address [address] [place] [address] Care Team Providers Care Glue Maker Bone Name Role Phone Sukh Patel NP Primary [...] rism, cig Mother (Age 77) uncertain whether IA or CVA Other Sister (Age 62) IA Social History Tobacco Use Types Packs/Day Years [...] 04/18/2025 10:30 AM EDT Appointment Radiology Department [address] [phone] 05/09/2025 10:00 AM EDT Office Visit General Surgery - [place] [address] [phone] Marco Antonio Hassan MD [address] [address] Health Maintenance Due Date Last Done Comments [...] in 12 months. BI-RADS: Category 2: Benign [address] [id number] [phone] Procedure Note Odalis Mak MD - 05/19/2024 This is a summary report. The complete report is available in thepatient's medical record. If you cannot access the medical record, pleasecontact the sending organization for a detailed fax or copy. History: Personal history of right breast lumpectomy for breast cancer [id number]. Study: SCREENING MAMMOGRAPHY BI 2-VIEW BREAST INC [...] in 12 months. BI-RADS: Category 2: Benign [address] [address] [phone] Marco Antonio Hassan MD IMG XR PROCEDURES Final Result from Last 3 Months or Most Recently Relevant to Health Maintenance Care Teams Glue Maker Bone Relationship Specialty Start Date End Date Sukh Patel NP [address] [place], [place] PCP - General 07/01/17
--- OUTSIDE RECORDS SUMMARY | 2024-11-16 11:29 | XMS_ITS | Encounter Summary ---
Author Organization [facility] Address [address] [facility] [address] [place] [address] Phone Care Team Providers Care Automotive Parts Coordinator Name Role Phone Sukh Patel NP Primary Care Provider [phone] Encounter Details Date Type Department Care Team (Late st Contact Info) Description 03/06/2022 Telephone [facility] [address] [place] [address] Waqas Brasher MD Social History [...] mg sent to [facility]. She has called several times and hasn't been able to get it filled. Please advise Thank you documented in this encounter Plan of Treatment Not on file documented as of this encounter Visit Diagnoses Not on filedocumented in this encounter Care Teams Automotive Parts Coordinator Relationship Specialty Start Date End Date Sukh Patel NP [address] [place] [address] PCP - General 08/14/20 documented as of this encounter
== END 2024-11-16 10:56 | disposition home or self-care (01) ==
LOC: HO.HKAS 09:55
PROVIDERS: PCP Nurse Practitioner Family; Visit Provider Internal Medicine Nephrology
DX: I15.0 Renovascular hypertension (principal)
CPT/HCPCS: 99214

== ENCOUNTER → 2024-11-16 09:55 | Outpatient (BNVA) | payer MEDICARE, SELFPAY | PROVIDERS: PCP Nurse Practitioner Family; Visit Provider Internal Medicine Nephrology | DX: I15.0 Renovascular hypertension (principal) | CPT/HCPCS: 99212 ==

== ENCOUNTER 2024-11-17 10:05 | Outpatient (AMB) | payer MEDICARE, SELFPAY ==
--- NOTE | 2024-11-17 10:12 | MHC.PC.OV ---
Vital Signs 11/17/24 10:15 Height 4 ft 11 in Weight 98 lb BMI 19.8 BP 150/80 H Blood Pressure Location Lt brachial Position Sitting Respiration 17 Pulse 68 Pulse Source Pulse Oximeter Temp 98.1 F Temp Source Oral Pulse Oximetry (%) 95 Oxygen Delivery Method Room Air Intake Visit Reasons: 3m follow up Intake Note: Pt is here today for her 3mo. f/u Allergies varenicline [From CHANTIX] Allergy (Severe, Verified 11/17/24 10:33) HIVES erythromycin base [ERYTHROMYCIN BASE] Allergy (Intermediate, Verified 11/17/24 10:33) RASH Macrolide Antibiotics [MACROLIDE ANTIBIOTICS] Allergy (Intermediate, Verified 11/17/24 10:33) RASH Sulfa (Sulfonamide Antibiotics) [SULFA (SULFONAMIDE ANTIBIOTICS)] Allergy (Intermediate, Verified 11/17/24 10:33) RASH amoxicillin Allergy (Unknown, Verified 11/17/24 10:33) Unknown barium sulfate Allergy (Unknown, Verified 11/17/24 10:33) Hives penicillin V Allergy (Unknown, Verified 11/17/24 10:33) Rash bupropion [From Wellbutrin] Adverse Reaction (Intermediate, Verified 11/17/24 10:33) Tinnitus sertraline [From Zoloft] Adverse Reaction (Mild, Verified 11/17/24 10:33) Insomnia citalopram Adverse Reaction (Unknown, Verified 11/17/24 10:33) Burning sensation all over body Erythromycin Allergy (Unknown, Uncoded 11/17/24 10:33) Unsure Sulfa drugs Allergy (Unknown, Uncoded 11/17/24 10:33) Unsure sertraline Adverse Reaction (Uncoded 11/17/24 10:33) Insomnia Medication List - Last Reconciled 11/17/24 by Sukh Patel, PHOTO TUBE ASSEMBLER- amlodipine 0.5 tabs PO QAM atenolol 37.5 mg (1.5 x 25 mg) PO DAILY bisacodyl (Dulcolax (bisacodyl)) 20 mg (4 x 5 mg) PO ONCE 1 day bisacodyl 5 mg PO ONCE 1 day calcium carbonate-vitamin D3 600 mg-10 mcg (400 unit) (Calcium with Vitamin D) 1 tab PO BID 30 days diazepam 5 mg PO BID PRN 30 days levothyroxine 25 mcg PO DAILY lisinopril 40 mg PO DAILY omeprazole 20 mg PO DAILY polyethylene glycol 3350 (Miralax) 238 grams PO ONCE Tobacco use date assessed: 11/17/24 Fall risk assessment: 2 + Falls in past year Last assessed Fall Risk: 11/17/24 Dental Screening Dental Screen Date: 11/17/24 HPI 3m follow up HPI Details Chief Complaint Frustration due to ongoing health challenges and management of hypothyroidism medication. History of Present Illness The patient is a 69-year-old female presenting for follow-up regarding mental health concerns, notably depression/anxiety and PTSD, linked to past trauma and current stressors. She accesses psychological support regularly and consults with a psychiatrist Q 2months. Triggers for her PTSD include the loss of offspring, loss of close pets, and a stressful residential environment. For her hypothyroidism, there was a lapse in her medication intake routine; she needs to take the medication on an empty stomach, something previously unacknowledged. Plans are in place for repeated thyroid level assessments after taking her levothyroxine first thing in the am on a empty stomach, Additionally, she is in the process of further evaluation following a positive screening result from a Cologuard test, to be investigated through a colonoscopy. Social History - Engages in weekly therapy sessions. - Lives in a stressful residential environment due to an issue with a neighbor. - Experienced the of a daughter in 2019, impacting her mental health. Health Maintenance - Scheduled colonoscopy following a positive Cologuard result. - Re-education on proper thyroid medication management (taking on an empty stomach). Review of Systems - Psychiatric: Reports ongoing depression, PTSD, and associated frustration. - Endocrine: Reports hypothyroidism, to be managed by re-evaluating thyroid function. - Respiratory: Reports diminished lung function. - Gastrointestinal: Reports a positive Cologuard test result. Physical Exam General: Cooperative, healthy appearing, teary at some points, frustrated at some points Orientation: Patient oriented x3 Limitations: No limitations Head: Normal to inspection Ears: Hearing grossly normal bilaterally Nose: Normal external nose present Face and sinus: Normal facial exam Eyes: Appearance normal, both eyes and all related structures Neck: Normal visual inspection and Yes full ROM Respiratory: Diminished bilaterally though moving air Cardiovascular: Regular rate and rhythm. Normal S1 and S2 GI: Normal to inspection. Soft to palpation and nontender Skin: No rashes or lesions noted Neuro: Patient oriented x3 Extremities: Normal to inspection Results - Labs: Positive Cologuard result discussed. Plan She will maintain her current mental health support, seeing a therapist weekly and a psychiatrist every 2 months. Her understanding of thyroid medication intake has been clarified, and her thyroid function will be re-evaluated promptly. For colorectal health, a scheduled colonoscopy will further investigate after a positive Cologuard result. I advised she use crisis support if current mental health concerns escalate. Discussion Notes During our conversation, I reinforced the importance of her current therapy and psychiatric treatment for her mental health concerns, particularly concerning her significant life events. We reviewed proper administration of her thyroid medication to boost its absorption and efficacy, agreeing on monitoring her thyroid function levels shortly. We discussed a follow-up colonoscopy due to her positive Cologuard test. I will monitor her mental health closely, providing guidance on utilizing crisis resources. She understood the need for these evaluations and interventions, and is amenable to the upcoming procedures. She can contact myself via the portal. NOTE: BP thought to be elevated due to emotional state at the time Patient Instructions - Continue with weekly therapy and psychiatric appointments. - Take thyroid medication on an empty stomach. - Schedule and prepare for colonoscopy for colorectal screening. - Reach out to crisis support lines as needed for mental health distress. - Monitor any respiratory changes and report during future visits. [facility] Medical History Renal artery stenosis Hypothalamic hypothyroidism Hypertension Surgical History Hx of lumpectomy Femoral hernia of right side History of tonsillectomy Family History Family/Other Brain cancer Social History Household Members: None Housing: House Are you a primary critical care transport nurse to a significant other at home: No Do you presently have visiting nurse or other home services: No Alcohol intake: current Alcohol intake frequency: holidays/special occasions only Patient Tobacco Use Status: Current everyday Tobacco user Tobacco use type: Cigarette Cigarette Packs Per Day: 1 e-Cigarette/Vaping Use: Never Used Second Hand Smoke Exposure: No Substance Use Type: Marijuana service: No Current occupational status: employed 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 1. Little interest or pleasure in doing things: several days 2. Feeling down, depressed, or hopeless: several days 3. Trouble falling or staying asleep, or sleeping too much: several days 4. Feeling tired or having little energy: several days 5. Poor appetite or overeating: not at all 6. Feeling bad about yourself - or that you are a failure or have let yourself or your family down: not at all 7. Trouble concentrating on things, such as reading the newspaper or watching television: several days 8. Moving or speaking so slowly that other people could have noticed. Or the opposite - being so fidgety or restless that you have been moving around a lot more than usual: not at all 9. Thoughts that you would be better off or of hurting yourself in some way: several days Total score: 6 Depression Screening Interpretation: Negative Depression Screening Done: Yes 33029 - PHQ-9 Billing: Yes Source: Developed by Drs. Andrea Willis, Dayaan Carter, Ata Perkins and colleagues, with an educational jessie from [employer]. Thrive Questionnaire Date Thrive assessed: 04/20/24 I am a: Patient What is your living situation today?: I have a steady place to live Within the past 12 months, did the food you bought not last and you didn't have the money to get more?: Sometimes True Within the past 12 months, did you worry whether your food would run out before you got money to buy more?: Sometimes True Do you have trouble paying for medicines?: Yes Do you have trouble getting transportation to medical appointments?: Yes Do you have trouble paying your heating and electricity bill?: No Do you have trouble taking care of your child, family member or friend?: No Do you have trouble with day-to-day activities such as bathing, preparing meals, shopping, managing finances, etc.?: Yes Are you currently unemployed and looking for a job?: No Are you interested in more education?: No Please select the resources that you would like help with: Transportation and None Currently or been in a relationship where the following occur: No concerns reported THRIVE Score: 3 AUDIT C Alcohol Use Questionnaire (AUDIT-C) 1. How often do you have a drink containing alcohol?: Monthly or less 2. How many drinks containing alcohol do you have on a typical day when you are drinking?: 1 or 2 3. How often do you have six or more drinks on one occasion?: Never Total Score: 1 LELE-7 AMB Questionnaire LELE-7 Date LELE - 7 assessed: 04/20/24 Feeling nervous, anxious, or on edge: 3 = Nearly every day Not being able to stop or control worryin = Nearly every day Worrying too much about different things: 3 = Nearly every day Trouble relaxin = Nearly every day Being so restless that it is hard to sit still: 0 = Not at all Becoming easily annoyed or irritable: 1 = Several days Feeling afraid as if something awful might happen: 3 = Nearly every day Total LELE-7 score (0-4 normal; 5-9 mild; 10-14 moderate; 15-21 severe): 16 Source: Developed by Drs. Andrea Willis, Dayana Carter, Ata Perkins and colleagues, with an educational jessie from [employer]. LELE-7 Assessment Billing LELE-7 Assessment Tool: LELE-7 Assessment 89623 (denies any active SI or HI, has a therapist and a psychiatrist) Physical exam (Primary Care) Vital Signs: Last Vital Signs Temp 98.1 F 11/17/24 10:15 Pulse 68 11/17/24 10:15 Resp 17 11/17/24 10:15 BP 150/80 H 11/17/24 10:15 Pulse Ox 95 11/17/24 10:15 Oxygen Delivery Method Room Air 11/17/24 10:15 BMI result Body Mass Index 19.8 Tobacco/Smoking Status: Tobacco use Status Tobacco use date assessed 11/17/24 11/17/24 10:15 Patient Tobacco Use Status Current everyday Tobacco 11/17/24 10:15 Tobacco use type Cigarette 11/17/24 10:15 e-Cigarette/Vaping Use Never Used 11/17/24 10:15 PHQ-9: PHQ-9 Score PHQ-9: Total score 6 11/17/24 10:35 Depression Screening Interpretation: Negative Thrive Assessment: Date of Thrive Assessment Date Thrive assessed 04/20/24 11/17/24 10:15 Currently or been in a relationship where the following occur: No concerns reported Coding Level of Care Code Est Pt Level 3 (71417) Diagnoses Positive colorectal cancer screening using Cologuard test R19.5 Hypothyroid E03.9 Depression F32.A Anxiety F41.9 PTSD (post-traumatic stress disorder) F43.10 Additional Codes PHQ-9 - 70360 - PHQ-9 Billing: Yes ([id number]) LELE-7 Assessment Billing - LELE-7 Assessment Tool: LELE-7 Assessment 15113 ([id number]) Assessment & Plan Assessment & Plan (1) Positive colorectal cancer screening using Cologuard test: Code(s): R19.5 - Other fecal abnormalities Category: Medical (2) Hypothyroid: Code(s): E03.9 - Hypothyroidism, unspecified Category: Medical (3) Depression: Code(s): F32.A - Depression, unspecified Category: Medical (4) Anxiety: Code(s): F41.9 - Anxiety disorder, unspecified Category: Medical (5) PTSD (post-traumatic stress disorder): Code(s): F43.10 - Post-traumatic stress disorder, unspecified Category: Medical Plan . Medications: Discontinued bisacodyl per colonoscopy prep instructions Discontinued Reason: Duplicate 5 mg PO ONCE 1 day 4 tabs 0RF
[2024-11-17 10:15] VITALS: BP 150/80; PULSE 68; RESP 17; TEMP 36.7; O2SAT 95; BMI 19.8
--- OUTSIDE RECORDS SUMMARY | 2024-11-17 11:37 | XMS_ITS | Clinical Summary ---
Author Organization [facility] Address [address] [facility] [address] [place] [address] Phone Care Team Providers Care Media Relations Associate Name Role Phone Sukh Patel NP Primary Care Provider [phone] Allergies Active Allergy Reactions Criticality Noted Date Comments Citalopram 07/01/2017 Penicillin V Other (see comments) 07/01/2017 Varenicline Other (see comments) 07/01/2017 Medications Probiotic Product (PROBIOTIC-10 PO) Take 1 capsule by mouth 1 (one) time each day Active Evening [place] Oil 500 MG capsule Take 1 capsule [...] patient's age to complete this topic Insurance [facility] PPO Blue([id number]) [place] [address] [place] [address] PPO Blue([id number]) Care Teams Media Relations Associate Relationship Specialty Start Date End Date Sukh Patel NP [address] [place] [address] PCP - General 08/14/20
--- OUTSIDE RECORDS SUMMARY | 2024-11-17 11:37 | XMS_ITS | Clinical Summary ---
Author Organization [facility] it Address [address] [place] [address] Care Team Providers Care Testing Specialist Name Role Phone Sukh Patel NP Primary [...] 04/18/2025 10:30 AM EDT Appointment Radiology Department [address] [address] 05/09/2025 10:00 AM EDT Office Visit General Surgery - [place] [address] [phone] Marco Antonio Hassan MD [address] [address] Health Maintenance Due Date Last Done Comments [...] in 12 months. BI-RADS: Category 2: Benign [address] [id number] [phone] Procedure Note Odalis Mak MD - 05/19/2024 This is a summary report. The complete report is available in thepatient's medical record. If you cannot access the medical record, pleasecontact the sending organization for a detailed fax or copy. History: Personal history of right breast lumpectomy for breast cancer [id number]. Study: SCREENING MAMMOGRAPHY BI 2-VIEW BREAST INC [...] in 12 months. BI-RADS: Category 2: Benign [address] [address] [phone] Marco Antonio Hassan MD IMG XR PROCEDURES Final Result from Last 3 Months or Most Recently Relevant to Health Maintenance Care Teams Testing Specialist Relationship Specialty Start Date End Date Sukh Patel NP [address] [place], [place] PCP - General 07/01/17
--- OUTSIDE RECORDS SUMMARY | 2024-11-17 11:37 | XMS_ITS | Clinical Summary ---
Author Organization [facility] Address [address] [place] [address] Care Team Providers Care Fiber Worker Name Role Phone Sukh Patel Primary Care Provider [phone] Allergies Active Allergy Reactions Criticality Noted Date [...] age to complete this topic Care Teams Fiber Worker Relationship Specialty Start Date End Date Sukh Patel [address] [facility] [place] [address] PCP - General 07/01/17
--- OUTSIDE RECORDS SUMMARY | 2024-11-17 11:37 | XMS_ITS | Encounter Summary ---
Author Organization [facility] Address [address] [facility] [address] [facility] [address] [place] [address] Phone Care Team Providers Care Solvent Plant Treater Name Role Phone Sukh Patel NP Primary Care Provider [phone] Encounter Details Date Type Department Care Team (Late st Contact Info) Description 03/06/2022 Telephone [facility] [address] [facility] [address] [place] [address] [place] [address] Waqas Brasher MD Social History [...] refill for amlodipine 5 mg sent to [facility] [address] [facility]. She has called several times and hasn't been able to get it filled. Please advise Thank you documented in this encounter Plan of Treatment Not on file documented as of this encounter Visit Diagnoses Not on filedocumented in this encounter Care Teams Solvent Plant Treater Relationship Specialty Start Date End Date Sukh Patel NP [address] [place] [address] PCP - General 08/14/20 documented as of this encounter
== END 2024-11-17 11:11 | disposition home or self-care (01) ==
LOC: HO.HMCC 10:06
PROVIDERS: PCP Nurse Practitioner Family; Visit Provider Nurse Practitioner Family
DX: R19.5 Other fecal abnormalities (principal); E03.9 Hypothyroidism, unspecified; F32.A Depression, unspecified; F41.9 Anxiety disorder, unspecified; F43.10 Post-traumatic stress disorder, unspecified

== ENCOUNTER → 2024-11-17 10:05 | Outpatient (BNVA) | payer MEDICARE, SELFPAY | PROVIDERS: PCP Nurse Practitioner Family; Visit Provider Nurse Practitioner Family | DX: R19.5 Other fecal abnormalities (principal); E03.9 Hypothyroidism, unspecified; F32.A Depression, unspecified; F41.9 Anxiety disorder, unspecified; F43.10 Post-traumatic stress disorder, unspecified | CPT/HCPCS: 96127; 99212 ==

== ENCOUNTER 2024-12-07 11:16 | Outpatient (AMB) | payer MEDICARE, SELFPAY ==
[2024-12-07 11:28] VITALS: BP 120/68; PULSE 67; O2SAT 97; BMI 19.6
--- NOTE | 2024-12-07 11:28 | A.OFFVIS_ITS ---
Vital Signs 12/07/24 11:28 Height 4 ft 11 in Weight 97 lb 0.054 oz BMI 19.6 BP 120/68 Blood Pressure Location Lt brachial Position Sitting Pulse 67 Pulse Source Pulse Oximeter Pulse Oximetry (%) 97 Oxygen Delivery Method Room Air Intake Visit Reasons: Age-related osteoporosis Intake Note: Patient present today for Osteoporosis follow up. Allergies varenicline [From CHANTIX] Allergy (Severe, Verified 12/07/24 11:31) HIVES erythromycin base [ERYTHROMYCIN BASE] Allergy (Intermediate, Verified 12/07/24 11:31) RASH Macrolide Antibiotics [MACROLIDE ANTIBIOTICS] Allergy (Intermediate, Verified 12/07/24 11:31) RASH Sulfa (Sulfonamide Antibiotics) [SULFA (SULFONAMIDE ANTIBIOTICS)] Allergy (Intermediate, Verified 12/07/24 11:31) RASH amoxicillin Allergy (Unknown, Verified 12/07/24 11:31) Unknown barium sulfate Allergy (Unknown, Verified 12/07/24 11:31) Hives penicillin V Allergy (Unknown, Verified 12/07/24 11:31) Rash bupropion [From Wellbutrin] Adverse Reaction (Intermediate, Verified 12/07/24 11:31) Tinnitus sertraline [From Zoloft] Adverse Reaction (Mild, Verified 12/07/24 11:31) Insomnia citalopram Adverse Reaction (Unknown, Verified 12/07/24 11:31) Burning sensation all over body Erythromycin Allergy (Unknown, Uncoded 12/07/24 11:31) Unsure Sulfa drugs Allergy (Unknown, Uncoded 12/07/24 11:31) Unsure sertraline Adverse Reaction (Uncoded 12/07/24 11:31) Insomnia Medication List - Last Reconciled 12/07/24 by Andrea Carballo MD amlodipine 0.5 tabs PO QAM atenolol 37.5 mg (1.5 x 25 mg) PO DAILY bisacodyl (Dulcolax (bisacodyl)) 20 mg (4 x 5 mg) PO ONCE 1 day calcium carbonate-vitamin D3 600 mg-10 mcg (400 unit) (Calcium with Vitamin D) 1 tab PO BID 30 days diazepam 5 mg PO BID PRN 30 days levothyroxine 25 mcg PO DAILY lisinopril 40 mg PO DAILY omeprazole 20 mg PO DAILY polyethylene glycol 3350 (Miralax) 238 grams PO ONCE HPI Comments Details: 69 YO Female with is seen in consultation at the request of PCP for Osteoporosis. First diagnosed in 4-5 yrs ago . Not Received treatment in the past . Was prescribed alendronate but did not take No history of pathologic fracture or ONJ. Has few servings of dietary calcium per day Takes Calcium supplement 600 mg daily in divided doses. Takes ? IU of Vitamin D daily. Take PPI,- anticoagulant, -antiepileptic or -glucocorticoid medication. 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 No UTD on dental cleanings and sees dentist every 6 months. No planned upcoming dental work or extractions. Smokes 1 08/05 ppd DXA dated 07/30/22:[facility] [address] [place], [place] [address] Mammography Report Signed Patient: Fabiola Calohun MR#: [id number] : 1955 Acct:[id number] Age/Sex: 66 / F ADM Date: 07/30/22 Loc: HO.MAMMO Attending Dr: Sukh RAMIREZ Ordering Physician: Sukh Patel Results: Date of Service: 07/30/22 Follow Up: Procedure(s): XR DEXA axial skeleton Accession Number(s): [id number] cc: Sukh Patel~ EXAMINATION: BONE DENSITOMETRY CLINICAL INDICATION: Asymptomatic menopausal state. COMPARISON: Previous BD dated 07/25/2020 and baseline BD dated 10/10/2017. TECHNIQUE: Using a [employer] DXA System (software version: 13.1) manufactured by [employer], dual-energy x-ray absorptiometry was performed of the lumbar spine and left hip. The images are of good technical quality. Summary results are attached. FINDINGS: AP SPINE L1-L3 (excluding L4): The data of L1-L4 has been changed to exclude the L4 vertebral body, because degenerative sclerosis at this level may cause overestimation of lumbar spine density. Current: BMD 0.692 g/cm2, Z-score -1.7, T-score -4.0, osteoporosis, 13.1% decrease from previous, 6.2% decrease from baseline (<5% change is not significant). Prior: BMD 0.796 g/cm2. Baseline: BMD 0.738 g/cm2. LEFT FEMUR, NECK: Current: BMD 0.705 g/cm2, Z-score -0.4, T-score -2.4, osteopenia. Prior: BMD 0.666 g/cm2. Baseline: BMD 0.683 g/cm2. LEFT FEMUR, TOTAL: Current: BMD 0.683 g/cm2, Z-score -0.8, T-score -2.6, osteoporosis, 3.0% decrease from previous, 0.3% decrease from baseline (<5% change is not significant). Prior: BMD 0.704 g/cm2. Baseline: BMD 0.685 g/cm2. IDENTIFIED RISK FACTORS: Osteoporosis, tobacco use (current smoker), height loss, menopause. HISTORY OF FRACTURE: None listed. MEDICATIONS: Calcium/multivitamin, ERT/SERMS. MM/XR DEXA axial skeleton IMPRESSION: 1. DIAGNOSIS: Osteoporosis based on the lowest T-score value of -4.0 in the lumbar spine applying World Health Organization criteria Labs: Lab work was ordered for secondary workup the patient did not go for. No fracture since last visit. Currently taking calcium and vitamin-D [facility] Medical History Renal artery stenosis Hypothalamic hypothyroidism Hypertension Surgical History Hx of lumpectomy Femoral hernia of right side History of tonsillectomy Family History Family/Other Brain cancer Social History Household Members: None Housing: House Are you a primary home care manager rn to a significant other at home: No Do you presently have visiting nurse or other home services: No Alcohol intake: current Alcohol intake frequency: holidays/special occasions only Patient Tobacco Use Status: Current everyday Tobacco user Tobacco use type: Cigarette Cigarette Packs Per Day: 1 e-Cigarette/Vaping Use: Never Used Second Hand Smoke Exposure: No Substance Use Type: Marijuana service: No Current occupational status: employed 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 Current occupational exposures/hazards: No Cognitive needs: No Hearing needs: Yes Vision needs: No Physical Exam Vital Signs: Last Vital Signs Pulse 67 12/07/24 11:28 BP 120/68 12/07/24 11:28 Pulse Ox 97 12/07/24 11:28 Oxygen Delivery Method Room Air 12/07/24 11:28 BMI result Body Mass Index 19.6 Assessment & Plan Assessment & Plan (1) Osteoporosis: Code(s): M81.0 - Age-related osteoporosis without current pathological fracture Category: Medical Plan: This is a 69-year-old white female with a history of osteoporosis currently being treated with calcium, vitamin-D and alendronate with reported declining bone density in the lumbar spine. Rule out secondary causes. Secondary workup was negative The plan is talk to the patient about starting and anabolic agent like Evenity, in this patient very high risk for fracture which would be proceeded by a anti resorptive agent. Tymlos and Forteo are contraindicated because of pt's prior hx of irradiation making Evenity the only viable anabolic choice for osteoporosis Medications: New romosozumab-aqqg (Evenity) 210 mg (2.34 mL) subcut .q mo 2.34 mL 11RF Coding Level of Care Code Est Pt Level 3 (44177) Diagnoses Osteoporosis M81.0
--- OUTSIDE RECORDS SUMMARY | 2024-12-07 13:07 | XMS_ITS | Clinical Summary ---
Author Organization [facility] Address [address] [place] [address] Care Team Providers Care Transfer Station Attendant Name Role Phone Sukh Patel Primary Care Provider [phone] Allergies Active Allergy Reactions Criticality Noted Date [...] age to complete this topic Care Teams Transfer Station Attendant Relationship Specialty Start Date End Date Sukh Patel [address] [place] [facility] [place] [address] PCP - General 07/01/17
--- OUTSIDE RECORDS SUMMARY | 2024-12-07 13:07 | XMS_ITS | Clinical Summary ---
Author Organization [facility] [employer] [facility] Address [address] [place] [address] Care Team Providers Care Pharmacy Picking Technician Name Role Phone Sukh Patel NP Primary [...] rism, cig Mother (Age 77) uncertain whether [place] or CVA Other Sister (Age 62) [place] Social History Tobacco Use Types Packs/Day Years [...] 04/18/2025 10:30 AM EDT Appointment Radiology Department [address] [address] 05/09/2025 10:00 AM EDT Office Visit General Surgery - [place] [address] [id number] Marco Antonio Hassan MD [address] [address] Health Maintenance Due Date Last Done Comments [...] in 12 months. BI-RADS: Category 2: Benign [address] [id number] [phone] Procedure Note Odalis Mak MD - 05/19/2024 This is a summary report. The complete report is available in thepatient's medical record. If you cannot access the medical record, pleasecontact the sending organization for a detailed fax or copy. History: Personal history of right breast lumpectomy for breast cancer [id number]. Study: SCREENING MAMMOGRAPHY BI 2-VIEW BREAST INC [...] in 12 months. BI-RADS: Category 2: Benign [address] [address] [phone] Marco Antonio Hassan MD IMG XR PROCEDURES Final Result from Last 3 Months or Most Recently Relevant to Health Maintenance Care Teams Pharmacy Picking Technician Relationship Specialty Start Date End Date Sukh Patel NP [address] [place], [place] PCP - General 07/01/17
--- OUTSIDE RECORDS SUMMARY | 2024-12-07 13:07 | XMS_ITS | Clinical Summary ---
Author Organization [facility] Address 100 [facility] [address] [place] [address] Phone Care Team Providers Care Hhas Name Role Phone Sukh Patel NP Primary Care Provider [phone] Allergies Active Allergy Reactions Criticality Noted Date Comments Citalopram 07/01/2017 Penicillin V Other (see comments) 07/01/2017 Varenicline Other (see comments) 07/01/2017 Medications Probiotic Product (PROBIOTIC-10 PO) Take 1 capsule by mouth 1 (one) time each day Active Evening Hurley Oil 500 MG capsule Take 1 capsule [...] patient's age to complete this topic Insurance [facility] PPO Blue([id number]) [place] [address] PPO Blue([id number]) Care Teams Hhas Relationship Specialty Start Date End Date Sukh Patel NP [address] [place] [address] PCP - General 08/14/20
--- OUTSIDE RECORDS SUMMARY | 2024-12-07 13:07 | XMS_ITS | Encounter Summary ---
Author Organization [facility] Address [address] [facility] [address] [place] [address] Phone Care Team Providers Care Hydrogen Power Plant Engineer Name Role Phone Sukh Patel NP Primary Care Provider [phone] Encounter Details Date Type Department Care Team (Late st Contact Info) Description 03/06/2022 Telephone [facility] [address] [place] [address] Waqas Brasher MD Social History [...] refill for amlodipine 5 mg sent to [facility]. She has called several times and hasn't been able to get it filled. Please advise Thank you documented in this encounter Plan of Treatment Not on file documented as of this encounter Visit Diagnoses Not on filedocumented in this encounter Care Teams Hydrogen Power Plant Engineer Relationship Specialty Start Date End Date Sukh Patel NP [address] [place] [address] PCP - General 08/14/20 documented as of this encounter
== END 2024-12-07 12:19 | disposition home or self-care (01) ==
LOC: HO.ENCR 11:17
PROVIDERS: PCP Nurse Practitioner Family; Visit Provider Internal Medicine Endocrinology, Diabetes & Metabolism
DX: M81.0 Age-related osteoporosis without current pathological fracture (principal)
CPT/HCPCS: 99213

== ENCOUNTER → 2024-12-07 11:16 | Outpatient (BNVA) | payer MEDICARE, SELFPAY | PROVIDERS: PCP Nurse Practitioner Family; Visit Provider Internal Medicine Endocrinology, Diabetes & Metabolism | DX: M81.0 Age-related osteoporosis without current pathological fracture (principal) | CPT/HCPCS: 99212 ==

== ENCOUNTER 2024-12-23 12:17 | Day surgery (SDC) | payer MEDICARE, SELFPAY ==
--- OUTSIDE RECORDS SUMMARY | 2024-12-13 06:21 | XMS_ITS | Clinical Summary ---
Author Organization [facility] Address [address] [place] [address] Care Team Providers Care Box Spring Maker Name Role Phone Sukh Patel Primary Care Provider [phone] Allergies Active Allergy Reactions Criticality Noted Date [...] age to complete this topic Care Teams Box Spring Maker Relationship Specialty Start Date End Date Sukh Patel [address] [facility] [place] [address] PCP - General 07/01/17
--- OUTSIDE RECORDS SUMMARY | 2024-12-13 06:21 | XMS_ITS | Encounter Summary ---
Author Organization [facility] Address [address] [facility] [address] [place] [address] Phone Care Team Providers Care Toy Packer Name Role Phone Sukh Patel NP Primary Care Provider [phone] Encounter Details Date Type Department Care Team (Late st Contact Info) Description 03/06/2022 Telephone [facility] [address] [place] [address] Waqas Brasher MD Social History [...] refill for amlodipine 5 mg sent to [facility] on [facility]. She has called several times and hasn't been able to get it filled. Please advise Thank you documented in this encounter Plan of Treatment Not on file documented as of this encounter Visit Diagnoses Not on filedocumented in this encounter Care Teams Toy Packer Relationship Specialty Start Date End Date Sukh Patel NP [address] [place] [address] PCP - General 08/14/20 documented as of this encounter
--- OUTSIDE RECORDS SUMMARY | 2024-12-13 06:21 | XMS_ITS | Clinical Summary ---
Author Organization [facility] [employer] [facility] Address [address] [place] [address] Care Team Providers Care Aircraft Skin Burnisher Name Role Phone Sukh Patel NP Primary [...] rism, cig Mother (Age 77) uncertain whether [place] or CVA Other Sister (Age 62) [place] Social History Tobacco Use Types Packs/Day Years [...] 04/18/2025 10:30 AM EDT Appointment Radiology Department [address] [address] 05/09/2025 10:00 AM EDT Office Visit General Surgery - [place] [address] [phone] Marco Antonio Hassan MD [address] [address] Health Maintenance Due Date Last Done Comments [...] in 12 months. BI-RADS: Category 2: Benign [address] [id number] [phone] Procedure Note Odalis Mak MD - 05/19/2024 This is a summary report. The complete report is available in thepatient's medical record. If you cannot access the medical record, pleasecontact the sending organization for a detailed fax or copy. History: Personal history of right breast lumpectomy for breast cancer [id number]. Study: SCREENING MAMMOGRAPHY BI 2-VIEW BREAST INC [...] in 12 months. BI-RADS: Category 2: Benign [address] [phone] Marco Antonio Hassan MD IMG XR PROCEDURES Final Result from Last 3 Months or Most Recently Relevant to Health Maintenance Care Teams Aircraft Skin Burnisher Relationship Specialty Start Date End Date Sukh Patel NP [address] [place], [place] PCP - General 07/01/17
--- OUTSIDE RECORDS SUMMARY | 2024-12-13 06:21 | XMS_ITS | Clinical Summary ---
Author Organization [facility] Address 100 [facility] [address] [place] [address] Phone Care Team Providers Care Business Process Analyst Name Role Phone Sukh Patel NP Primary Care Provider [phone] Allergies Active Allergy Reactions Criticality Noted Date Comments Citalopram 07/01/2017 Penicillin V Other (see comments) 07/01/2017 Varenicline Other (see comments) 07/01/2017 Medications Probiotic Product (PROBIOTIC-10 PO) Take 1 capsule by mouth 1 (one) time each day Active Evening Sutton Oil 500 MG capsule Take 1 capsule [...] patient's age to complete this topic Insurance [facility] PPO Blue([id number]) [place] [address] PPO Blue([id number]) Care Teams Business Process Analyst Relationship Specialty Start Date End Date Sukh Patel NP [address] [place] [address] PCP - General 08/14/20
[2024-12-21 14:06] VITALS: BMI 19.6
--- NOTE | 2024-12-22 09:35 | HO.ANESPROP2 ---
HPI - Anesthesia Eval Consult details Narrative: 69yo F for Colonoscopy Follows [facility] nephrology for htn, mild GA PMFSH Active Problems Active Problems: All Active Problems Femoral hernia (Acute) Positive colorectal cancer screening using Cologuard test (Acute) Hypothyroid (Acute) Depression (Acute) Hypertension (Acute) Dyslipidemia (Acute) Rash (Acute) Screening for colon cancer (Acute) Osteoporosis (Acute) Anxiety (Acute) PTSD (post-traumatic stress disorder) (Acute) Postmenopausal (Acute) Physical exam (Acute) Insect bite (Acute) Skin lesion (Acute) Chronic diarrhea (Acute) Breast cancer (Acute) Past Medical History Medical History Hx of ulcer disease Renal artery stenosis Hypothalamic hypothyroidism Hypertension Family History Family History (Reviewed 11/17/24 @ 17:18 by J[facility]) Family/Other Brain cancer Surgical History Surgical History (Updated 12/23/24 @ 12:48 by Shadia Calhoun RN) Hx of colonoscopy Hx of lumpectomy Femoral hernia of right side History of tonsillectomy Social History Social History Household Members: None Housing: House Are you a primary before and after school daycare worker to a significant other at home: No Do you presently have visiting nurse or other home services: No Alcohol intake: current Alcohol intake frequency: holidays/special occasions only Patient Tobacco Use Status: Current everyday Tobacco user Tobacco use type: Cigarette Cigarette Packs Per Day: 1 e-Cigarette/Vaping Use: Never Used Second Hand Smoke Exposure: No Substance Use Type: Marijuana service: No Current occupational status: employed 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 Current occupational exposures/hazards: No Cognitive needs: No Hearing needs: Yes Vision needs: No Meds Allergies Allergy/AdvReac Type Severity Reaction Status Date / Time varenicline [From CHANTIX] Allergy Severe HIVES Verified 12/23/24 12:23 erythromycin base Allergy Intermediate RASH Verified 12/23/24 12:23 [ERYTHROMYCIN BASE] Macrolide Antibiotics Allergy Intermediate RASH Verified 12/23/24 12:23 [MACROLIDE ANTIBIOTICS] Sulfa (Sulfonamide Allergy Intermediate RASH Verified 12/23/24 12:23 Antibiotics) [SULFA (SULFONAMIDE ANTIBIOTICS)] amoxicillin Allergy Unknown Unknown Verified 12/23/24 12:23 barium sulfate Allergy Unknown Hives Verified 12/23/24 12:23 penicillin V Allergy Unknown Rash Verified 12/23/24 12:23 bupropion [From Wellbutrin] AdvReac Intermediate Tinnitus Verified 12/23/24 12:23 sertraline [From Zoloft] AdvReac Mild Insomnia Verified 12/23/24 12:23 citalopram AdvReac Unknown Burning Verified 12/23/24 12:23 sensation all over body Erythromycin Allergy Unknown Unsure Uncoded 12/23/24 12:23 Sulfa drugs Allergy Unknown Unsure Uncoded 12/23/24 12:23 sertraline AdvReac Insomnia Uncoded 12/23/24 12:23 Home Medications ?Medication ?Instructions ?Recorded ?Confirmed ?Last Taken ?Type amlodipine 5 mg tablet 0.5 tab PO BEDTIME 07/17/20 12/23/24 Unknown History Exam Height,Weight and Vital Signs: Height 4 ft 11 in Weight 43.998 kg Pertinent Lab Results Pertinent Lab Results: Laboratory Tests 11/09/24 10:32 WBC 6.3 Hgb 14.1 Hct 42.7 Plt Count 271 Sodium 139 Potassium 3.8 Chloride 107 Carbon Dioxide 26 BUN 16 Creatinine 0.79 Assessment and Plan Assessment Anesthesia Assessment: Chart Reviewed
[2024-12-23 12:44] VITALS: BMI 19.5
[2024-12-23 13:03] VITALS: BP 160/85; PULSE 66; RESP 18; TEMP 36.8; O2SAT 98
[2024-12-23] MEDS: Lactated Ringers 1,000 ML 100 ML IVCONT (13:03)
--- NOTE | 2024-12-23 13:42 | P.CONAN_ITS ---
HPI - Anesthesia Eval Consult details Narrative: colonoscopy PMFSH Active Problems Active Problems: All Active Problems Femoral hernia (Acute) Positive colorectal cancer screening using Cologuard test (Acute) Hypothyroid (Acute) Depression (Acute) Dyslipidemia (Acute) Rash (Acute) Screening for colon cancer (Acute) Osteoporosis (Acute) Anxiety (Acute) PTSD (post-traumatic stress disorder) (Acute) Postmenopausal (Acute) Physical exam (Acute) Insect bite (Acute) Skin lesion (Acute) Chronic diarrhea (Acute) Breast cancer (Acute) Hypertension (Acute) Past Medical History Medical History Hx of ulcer disease Renal artery stenosis Hypothalamic hypothyroidism Hypertension Functional capacity: independent ambulation Patient : No Family History Family History Family/Other Brain cancer Family history of problems with anesthesia: No Surgical History Surgical History (Updated 12/23/24 @ 12:48 by Shadia Calhoun RN) Hx of colonoscopy Hx of lumpectomy Femoral hernia of right side History of tonsillectomy History of Problems with Anesthesia: No Social History Social History Household Members: None Housing: House Are you a primary childcare worker to a significant other at home: No Do you presently have visiting nurse or other home services: No Alcohol intake: current Alcohol intake frequency: holidays/special occasions only Patient Tobacco Use Status: Current everyday Tobacco user Tobacco use type: Cigarette Cigarette Packs Per Day: 1 e-Cigarette/Vaping Use: Never Used Second Hand Smoke Exposure: No Substance Use Type: Marijuana service: No Current occupational status: employed 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 Current occupational exposures/hazards: No Cognitive needs: No Hearing needs: Yes Vision needs: No Meds Allergies Allergy/AdvReac Type Severity Reaction Status Date / Time varenicline [From CHANTIX] Allergy Severe HIVES Verified 12/23/24 12:23 erythromycin base Allergy Intermediate RASH Verified 12/23/24 12:23 [ERYTHROMYCIN BASE] Macrolide Antibiotics Allergy Intermediate RASH Verified 12/23/24 12:23 [MACROLIDE ANTIBIOTICS] Sulfa (Sulfonamide Allergy Intermediate RASH Verified 12/23/24 12:23 Antibiotics) [SULFA (SULFONAMIDE ANTIBIOTICS)] amoxicillin Allergy Unknown Unknown Verified 12/23/24 12:23 barium sulfate Allergy Unknown Hives Verified 12/23/24 12:23 penicillin V Allergy Unknown Rash Verified 12/23/24 12:23 bupropion [From Wellbutrin] AdvReac Intermediate Tinnitus Verified 12/23/24 12:23 sertraline [From Zoloft] AdvReac Mild Insomnia Verified 12/23/24 12:23 citalopram AdvReac Unknown Burning Verified 12/23/24 12:23 sensation all over body Erythromycin Allergy Unknown Unsure Uncoded 12/23/24 12:23 Sulfa drugs Allergy Unknown Unsure Uncoded 12/23/24 12:23 sertraline AdvReac Insomnia Uncoded 12/23/24 12:23 Active Medications: Current Medications Lactated Ringer's (Lr) 1,000 mls @ 100 mls/hr IVCONT .Q10H MEGHANA Last Admin: 12/23/24 13:03 Dose: 100 mls/hr Home Medications ?Medication ?Instructions ?Recorded ?Confirmed ?Last Taken ?Type amlodipine 5 mg tablet 0.5 tab PO BEDTIME 07/17/20 12/23/24 Unknown History Exam Height,Weight and Vital Signs: Height 4 ft 11 in Weight 96 lb 8 oz Last Vital Signs Temp 98.2 F 12/23/24 13:03 Pulse 66 12/23/24 13:03 Resp 18 12/23/24 13:03 BP 160/85 H 12/23/24 13:03 Pulse Ox 98 12/23/24 13:03 O2 Del Method Room Air 12/23/24 13:03 Assessment and Plan Assessment Anesthesia Assessment: Anesthesia Plan Discussed Final Anesthetic Review Family History of Problems with Anesthesia: No History of Problems with Anesthesia: No NPO: Yes ASA Class: II Patient Risk: Low Procedure Risk: Low Anesthetic Plan Anesthetic Plan: GA and TIVA
--- NOTE | 2024-12-23 13:55 | HO.ANESPROP2 ---
[facility] Active Problems Active Problems: All Active Problems Femoral hernia (Acute) Positive colorectal cancer screening using Cologuard test (Acute) Hypothyroid (Acute) Depression (Acute) Dyslipidemia (Acute) Rash (Acute) Screening for colon cancer (Acute) Osteoporosis (Acute) Anxiety (Acute) PTSD (post-traumatic stress disorder) (Acute) Postmenopausal (Acute) Physical exam (Acute) Insect bite (Acute) Skin lesion (Acute) Chronic diarrhea (Acute) Breast cancer (Acute) Hypertension (Acute) Past Medical History Medical History Hx of ulcer disease Renal artery stenosis Hypothalamic hypothyroidism Hypertension Functional capacity: independent ambulation Family History Family History Family/Other Brain cancer Surgical History Surgical History (Updated 12/23/24 @ 12:48 by Shadia Calhoun RN) Hx of colonoscopy Hx of lumpectomy Femoral hernia of right side History of tonsillectomy Social History Social History Household Members: None Housing: House Are you a primary critical care clinical nurse specialist to a significant other at home: No Do you presently have visiting nurse or other home services: No Alcohol intake: current Alcohol intake frequency: holidays/special occasions only Patient Tobacco Use Status: Current everyday Tobacco user Tobacco use type: Cigarette Cigarette Packs Per Day: 1 e-Cigarette/Vaping Use: Never Used Second Hand Smoke Exposure: No Substance Use Type: Marijuana service: No Current occupational status: employed 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 Current occupational exposures/hazards: No Cognitive needs: No Hearing needs: Yes Vision needs: No Meds Allergies Allergy/AdvReac Type Severity Reaction Status Date / Time varenicline [From CHANTIX] Allergy Severe HIVES Verified 12/23/24 12:23 erythromycin base Allergy Intermediate RASH Verified 12/23/24 12:23 [ERYTHROMYCIN BASE] Macrolide Antibiotics Allergy Intermediate RASH Verified 12/23/24 12:23 [MACROLIDE ANTIBIOTICS] Sulfa (Sulfonamide Allergy Intermediate RASH Verified 12/23/24 12:23 Antibiotics) [SULFA (SULFONAMIDE ANTIBIOTICS)] amoxicillin Allergy Unknown Unknown Verified 12/23/24 12:23 barium sulfate Allergy Unknown Hives Verified 12/23/24 12:23 penicillin V Allergy Unknown Rash Verified 12/23/24 12:23 bupropion [From Wellbutrin] AdvReac Intermediate Tinnitus Verified 12/23/24 12:23 sertraline [From Zoloft] AdvReac Mild Insomnia Verified 12/23/24 12:23 citalopram AdvReac Unknown Burning Verified 12/23/24 12:23 sensation all over body Erythromycin Allergy Unknown Unsure Uncoded 12/23/24 12:23 Sulfa drugs Allergy Unknown Unsure Uncoded 12/23/24 12:23 sertraline AdvReac Insomnia Uncoded 12/23/24 12:23 Active Medications: Current Medications Lactated Ringer's (Lr) 1,000 mls @ 100 mls/hr IVCONT .Q10H MEGHANA Last Admin: 12/23/24 13:03 Dose: 100 mls/hr Home Medications ?Medication ?Instructions ?Recorded ?Confirmed ?Last Taken ?Type amlodipine 5 mg tablet 0.5 tab PO BEDTIME 07/17/20 12/23/24 Unknown History Exam Height,Weight and Vital Signs: Height 4 ft 11 in Weight 96 lb 8 oz Last Vital Signs Temp 98.2 F 12/23/24 13:03 Pulse 66 12/23/24 13:03 Resp 18 12/23/24 13:03 BP 160/85 H 12/23/24 13:03 Pulse Ox 98 12/23/24 13:03 O2 Del Method Room Air 12/23/24 13:03 Airway Mallampati Class: II TM Dist: >3cm Neck ROM: Full Partial: Upper and Lower Heart: RRR Lungs: CTA Assessment and Plan Assessment Anesthesia Assessment: Anesthesia Plan Discussed Final Anesthetic Review ASA Class: II Patient Risk: Intermediate Procedure Risk: Low Anesthetic Plan Anesthetic Plan: GA and TIVA Disposition: Standard PACU
--- NOTE | 2024-12-23 14:01 | P.HPSUR_ITS ---
Pre-Procedural Eval Section A - 24 Hr Update-Section A only Date of Service: 12/23/24 Section B - Complete if H&P > 30 days Chief Complaint: Other fecal abnormalities Details of Present Illness: Medical History Renal artery stenosis Hypothalamic hypothyroidism Hypertension Surgical History Hx of lumpectomy Femoral hernia of right side History of tonsillectomy Present Medications: see Short Stay Collaborative assessment Allergies: Allergies Allergy/AdvReac Type Severity Reaction Status Date / Time varenicline [From CHANTIX] Allergy Severe HIVES Verified 12/23/24 12:23 erythromycin base Allergy Intermediate RASH Verified 12/23/24 12:23 [ERYTHROMYCIN BASE] Macrolide Antibiotics Allergy Intermediate RASH Verified 12/23/24 12:23 [MACROLIDE ANTIBIOTICS] Sulfa (Sulfonamide Allergy Intermediate RASH Verified 12/23/24 12:23 Antibiotics) [SULFA (SULFONAMIDE ANTIBIOTICS)] amoxicillin Allergy Unknown Unknown Verified 12/23/24 12:23 barium sulfate Allergy Unknown Hives Verified 12/23/24 12:23 penicillin V Allergy Unknown Rash Verified 12/23/24 12:23 bupropion [From Wellbutrin] AdvReac Intermediate Tinnitus Verified 12/23/24 12:23 sertraline [From Zoloft] AdvReac Mild Insomnia Verified 12/23/24 12:23 citalopram AdvReac Unknown Burning Verified 12/23/24 12:23 sensation all over body Erythromycin Allergy Unknown Unsure Uncoded 12/23/24 12:23 Sulfa drugs Allergy Unknown Unsure Uncoded 12/23/24 12:23 sertraline AdvReac Insomnia Uncoded 12/23/24 12:23 Review of Systems Review of Systems Comment: Ten point ROS negative Exam Exam Comment: Gen appear: No acute distress HEENT: no icterus Chest: No overt resp distress Abd: soft, nontender, nondistended Psych: Stable affect, answering questions appropriately Neuro: A/Ox3 noted to move all extremities spontaneously Ext: no peripheral edema Plan Diagnosis/Plan: Unchanged I have reviewed the history and physical and performed a pertinent physical examination on my patient. No changes have occurred unless specified. Time Spent With Patient Time: Total time managing care of this patient today ____ minutes.
--- NOTE | 2024-12-23 14:32 | P.OPN-COLO_ITS ---
Colonoscopy Operative Note Operative Note Date of Service: 12/23/24 Narrative: Procedure: Colonoscopy Indication: Positive cologuard Endoscopist: Renetta Steele MD Anesthesia Provider: Werner Garrido and Jose Anesthesia type: MAC Instrument: Olympus [id number]-H190L Consent: Indication, risks vs benefits, and alternatives were discussed with the patient who gave written informed consent to proceed. EKG, pulse, pulse oximetry and blood pressure were monitored throughout the procedure. Please see anesthesia flowsheet. Procedure: The patient was brought to the procedure room and placed in the left lateral decubitus position. IV medications were administered by the anesthesia provider in attendance. A digital rectal exam was performed which was normal. A distal attachment cap was affixed to the tip of the colonoscope which was then inserted through the anus and advanced through the colon to the cecum at 70 cm,and terminal ileum. Appendiceal orifice and ileocecal valve were identified. Mucosa was carefully examined under high definition white light as the instrument was slowly withdrawn in a retrograde panoramic fashion. Retroflexion was performed in rectum. The procedure was not difficult. There were no immediate obvious complications. The quality of the prep was BBPS: 3+2+3 = adequate Withdrawal time 13 minutes. Limitations: No limitations. Findings: Mucosa: Normal to cecum and terminal ileum which was deeply intubated to 30 cm. Protruding lesions: * 1 sessile polyp of size 3 mm in cecum. Cold snare polypectomy was performed. The polyp was completely removed and retrieved. * 1 sessile polyp of size 6 mm in rectal colon. Cold snare polypectomy was performed. The polyp was completely removed and retrieved. * Medium internal hemorrhoids without stigmata of recent bleeding. Excavated lesions: * Extensive diverticulosis of whole colon L >R. Impression: 1. Normal colon and terminal ileum mucosa 2. Total of 2 polyps removed 3. Diverticulosis 4. Hemorrhoids Recommendations: - Follow path results. - Repeat colonoscopy in 7-10 years if patient in good health. - Typically no further endoscopy or imaging needed if cologuard determined to be false positive, however given CT findings from last year a CT abd/pel with IV contrast has been ordered to r/o small bowel mass.
[2024-12-23 14:37] VITALS: BP 96/58; PULSE 57; RESP 16; TEMP 36.1; O2SAT 95
[2024-12-23 14:52] VITALS: BP 152/70; PULSE 62; RESP 16; TEMP 36.1; O2SAT 95
== END 2024-12-23 15:36 | disposition home or self-care (01) ==
PROVIDERS: PCP Nurse Practitioner Family; Visit Provider Internal Medicine
PROC: 0DJD8ZZ Inspection of Lower Intestinal Tract, Via Natural or Artificial Opening Endoscopic (ICD-10-PCS; CPT 45378; principal; 2024-12-23 14:20)
DX: R19.5 Other fecal abnormalities (principal); D12.0 Benign neoplasm of cecum; K62.1 Rectal polyp; K57.30 Diverticulosis of large intestine without perforation or abscess without bleeding; K64.8 Other hemorrhoids; I10 Essential (primary) hypertension; E78.5 Hyperlipidemia, unspecified; E03.9 Hypothyroidism, unspecified; F12.90 Cannabis use, unspecified, uncomplicated; F17.210 Nicotine dependence, cigarettes, uncomplicated; Z85.3 Personal history of malignant neoplasm of breast; Z79.899 Other long term (current) drug therapy
CPT/HCPCS: 45385; 88305; J2003; J2704

== ENCOUNTER → 2024-12-23 12:17 | Outpatient (BNV) | payer MEDICARE, SELFPAY | PROVIDERS: PCP Nurse Practitioner Family; Visit Provider Internal Medicine | DX: Z12.11 Encounter for screening for malignant neoplasm of colon (principal); R19.5 Other fecal abnormalities; K63.5 Polyp of colon; K57.90 Diverticulosis of intestine, part unspecified, without perforation or abscess without bleeding; K64.8 Other hemorrhoids | CPT/HCPCS: 45385 ==

== ENCOUNTER 2025-01-05 13:50 | Outpatient (REF) | payer MEDICARE, SELFPAY ==
--- OUTSIDE RECORDS SUMMARY | 2025-01-05 13:58 | XMS_ITS | Clinical Summary ---
Author Organization [facility] Address [address] [place] [address] Care Team Providers Care Mash Tub Cooker Operator Name Role Phone Sukh Patel Primary Care Provider [phone] Allergies Active Allergy Reactions Criticality Noted Date [...] Osteoporosis Screening (DEXA Scan) 10/13/2019 Influenza Vaccine (Season Ended) 2025 RSV Adult > 60+ Yrs or Pregn ant (1 - 1-dose 75+ series) 2029 Hepatitis B Vaccines Aged Out No long er eligible based on patient's age to complete this topic RSV Ped < 20 months Aged Out No longe r eligible based on patient's age to complete this topic Care Teams Mash Tub Cooker Operator Relationship Specialty Start Date End Date Sukh Patel [address] [facility] [place] [address] PCP - General 07/01/17
[2025-01-05 16:36] LABS: Alanine Aminotransferase 10 U/L (0-31); Albumin Level 4.3 g/dL (3.5-5.0); Alkaline Phosphatase 64 U/L (39-117); Anion Gap 12 (12-20); Aspartate Amino Transferase 24 U/L (5-31); Bilirubin Total 0.3 mg/dL (0.0-1.0); Blood Urea Nitrogen 24 mg/dL (9-16); Calcium 9.8 mg/dL (8.4-10.2); Carbon Dioxide 27 mmol/L (22-29); Chloride 107 mmol/L (96-108); Cholesterol 284 mg/dL (<200); Estimated Glomerular Filt Rate 60; Glucose Fasting 84 mg/dL (60-99); HDL Cholesterol 47 mg/dL (>40); LDL Cholesterol Calculated 209 mg/dL (<100); Potassium 4.6 mmol/L (3.3-5.1); Sodium 141 mmol/L (135-145); Total Protein 7.1 g/dL (6.5-8.0); Triglycerides 141 mg/dL (<150)
[2025-01-05 16:50] LABS: TSH reflex Free T4 3.96 uIU/mL (0.32-4.0)
== END 2025-01-05 13:51 | disposition home or self-care (01) ==
LOC: HO.HMGCLDS 13:50
PROVIDERS: PCP Nurse Practitioner Family; Visit Provider Nurse Practitioner Family
DX: E78.5 Hyperlipidemia, unspecified (principal); E03.9 Hypothyroidism, unspecified
CPT/HCPCS: 36415; 80053; 80061; 84443

== ENCOUNTER 2025-01-07 08:34 | Outpatient (REF) | payer MEDICARE, SELFPAY ==
--- NOTE | ~2025-01-07 | CT_ITS ---
EXAMINATION: CT ABDOMEN PELVIS WITH IV CONTRAST HISTORY: K63.9 - Disease of intestine, unspecified COMPARISON: Comparison is made with the prior examination dated 01/22/2024. TECHNIQUE: CT scan of the abdomen and pelvis was performed following administration of 85 mL Omnipaque 350 using standard departmental protocol. Coronal and sagittal reformatted images were generated and reviewed. Oral contrast material was not administered at the request of the referring physician. This CT exam was performed with one or more of the following dose reduction techniques: automated exposure control, adjustment of the mA and/or kV according to patient size, use of iterative reconstruction technique. DLP: 162 mGy-cm FINDINGS: LOWER CHEST: The visualized lung bases are clear. There is no pleural effusion. CARDIOVASCULATURE: The heart is normal in size. There is no pericardial effusion. LIVER: The liver is normal in size and contour. No liver mass is identified. The hepatic and portal veins are patent. GALLBLADDER / BILE DUCTS: The gallbladder is unremarkable. There is no intra or extrahepatic biliary ductal dilatation. SPLEEN: The spleen is normal in size. No focal splenic lesion is identified. PANCREAS: The pancreas is unremarkable in appearance. ADRENAL GLANDS: Within normal limits. KIDNEYS/RETROPERITONEUM: No renal calculi are identified. There is no hydronephrosis. No renal masses are identified. LYMPH NODES: No abdominal or pelvic lymphadenopathy. VASCULATURE: The abdominal aorta demonstrates atherosclerotic calcification, but is normal in caliber. MESENTERY/PERITONEUM: No free fluid. No masses. There is no free intraperitoneal gas. STOMACH: The stomach is collapsed, limiting evaluation. SMALL BOWEL: The small bowel is normal in caliber. COLON: The colon is largely collapsed. It is difficult to exclude wall thickening. There is diverticulosis of the sigmoid colon, without evidence of diverticulitis. APPENDIX: The appendix is not seen, however no inflammatory changes are seen adjacent to the cecum. URINARY BLADDER/PELVIC ORGANS: The urinary bladder is collapsed, limiting evaluation. The uterus is unremarkable. There are prominent vessels in the left adnexa BONES / SOFT TISSUES: There is grade I spondylolisthesis of L5 on S1. There is osteoarthritis of the right hip with joint space narrowing and subchondral cyst formation. CT/CT abdomen pelvis w IV con IMPRESSION: The colon is collapsed making evaluation for wall thickening difficult. No small bowel abnormality is identified. Electronically signed by: Andrea Barlow MD 01/07/2025 09:44 AM EDT
--- OUTSIDE RECORDS SUMMARY | 2025-01-07 08:46 | XMS_ITS | Clinical Summary ---
Author Organization [facility] Address [address] [place] [address] Care Team Providers Care Wallcovering Texturer Name Role Phone Sukh Patel Primary Care Provider [phone] Allergies Active Allergy Reactions Criticality Noted Date [...] age to complete this topic Care Teams Wallcovering Texturer Relationship Specialty Start Date End Date Sukh Patel [address] [place] [facility] [address] PCP - General 07/01/17
[2025-01-07] MEDS: iohexoL 350 MG/ML 100 ML INFUS..BTL IV (09:29)
== END 2025-01-07 08:35 | disposition home or self-care (01) ==
LOC: HO.CT 08:34
PROVIDERS: PCP Nurse Practitioner Family; Visit Provider Internal Medicine
DX: K63.89 Other specified diseases of intestine (principal); K41.90 Unilateral femoral hernia, without obstruction or gangrene, not specified as recurrent
CPT/HCPCS: 74177; Q9967

== ENCOUNTER → 2025-01-07 08:36 | Outpatient (BNV) | payer MEDICARE, SELFPAY | PROVIDERS: PCP Nurse Practitioner Family; Visit Provider Radiology Diagnostic Radiology | DX: K63.9 Disease of intestine, unspecified (principal) | CPT/HCPCS: 74177 ==

== ENCOUNTER 2025-01-14 14:11 | Outpatient (AMB) | payer MEDICARE, SELFPAY ==
--- NOTE | 2025-01-14 14:13 | MHC.OFFVIS ---
Vital Signs 01/14/25 14:15 Height 4 ft 11 in Weight 92 lb 4 oz BMI 18.6 BP 126/76 Blood Pressure Location Rt brachial Position Sitting Pulse 66 Pulse Source Pulse Oximeter Pulse Oximetry (%) 96 Oxygen Delivery Method Room Air Intake Visit Reasons: ct scan and colo review Intake Note: Est pt for mgmt of chronic fecal abn. S/P colo + CT scan. CC; Pt denies any new sx or concerns. Pt is here to review results of imaging and procedure. Psychological Assistant Required: No Accompanied by: Self / Same As Patient Allergies varenicline [From CHANTIX] Allergy (Severe, Verified 01/14/25 14:14) HIVES erythromycin base [ERYTHROMYCIN BASE] Allergy (Intermediate, Verified 01/14/25 14:14) RASH Macrolide Antibiotics [MACROLIDE ANTIBIOTICS] Allergy (Intermediate, Verified 01/14/25 14:14) RASH Sulfa (Sulfonamide Antibiotics) [SULFA (SULFONAMIDE ANTIBIOTICS)] Allergy (Intermediate, Verified 01/14/25 14:14) RASH amoxicillin Allergy (Unknown, Verified 01/14/25 14:14) Unknown barium sulfate Allergy (Unknown, Verified 01/14/25 14:14) Hives penicillin V Allergy (Unknown, Verified 01/14/25 14:14) Rash bupropion [From Wellbutrin] Adverse Reaction (Intermediate, Verified 01/14/25 14:14) Tinnitus sertraline [From Zoloft] Adverse Reaction (Mild, Verified 01/14/25 14:14) Insomnia citalopram Adverse Reaction (Unknown, Verified 01/14/25 14:14) Burning sensation all over body Erythromycin Allergy (Unknown, Uncoded 01/14/25 14:14) Unsure Sulfa drugs Allergy (Unknown, Uncoded 01/14/25 14:14) Unsure sertraline Adverse Reaction (Uncoded 01/14/25 14:14) Insomnia HPI HPI ct scan and colo review: Details: Patient is a 69-year-old female with PMH hypothyriodism, depression with anxiety, PTSD, HTN, HLD, osteoporosis She her for follow up after colonoscopy. She has several questions about recent colonoscopy and CT results. She reports daily BM without difficultly including no constipation, loose stool or straining. She also denies any pyrosis, states her reflux symptoms are well controlled with omeprazole. She reports feeling overall well. Patient denies: fever/chills, n/v, appetite changes, regurgitation, dysphasia, unintentional wt loss or melena/hematochezia. [facility] Medical History (Updated 01/14/25 @ 15:51 by Sandy Kirby CNP) Person consulting for explanation of examination or test finding Diverticulosis Colon polyps Hx of ulcer disease Renal artery stenosis Hypothalamic hypothyroidism Hypertension Surgical History Hx of colonoscopy Hx of lumpectomy Femoral hernia of right side History of tonsillectomy Family History Family/Other Brain cancer Social History Household Members: None Housing: House Are you a primary career development specialist to a significant other at home: No Do you presently have visiting nurse or other home services: No Alcohol intake: current Alcohol intake frequency: holidays/special occasions only Patient Tobacco Use Status: Current everyday Tobacco user Tobacco use type: Cigarette Cigarette Packs Per Day: 1 e-Cigarette/Vaping Use: Never Used Second Hand Smoke Exposure: No Substance Use Type: Marijuana service: No Current occupational status: employed 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 Current occupational exposures/hazards: No Cognitive needs: No Hearing needs: Yes Vision needs: No Review of Systems Const Reports as per HPI ENT Reports as per HPI Card Reports as per HPI Resp Reports as per HPI GI Reports as per HPI Reports as per HPI Physical Exam Const General: healthy appearing, no acute distress and well developed Nutritional Appearance: well nourished Orientation/consciousness: patient oriented x3 HEENT Head: Yes normal to inspection, Yes normocephalic and Yes atraumatic Face and sinus: Yes normal facial exam Eyes General: appearance normal, both eyes and all related structures Neck Neck: Yes normal visual inspection Resp Effort & Inspection: normal respiratory effort, able to speak in complete sentences, no tracheal deviation and symmetric chest movement Cardio Jugular venous distension: no JVD Neuro General: patient oriented x3 Gait exam (Neuro): Normal gait present Psych Appearance: grossly normal Mental Status: mental status grossly normal Speech and movement: Normal speech and movement present Affect: normal affect Attitude: cooperative Thought process: Normal thought process present Thought content: Normal thought content present Insight: Fair insight present (Psych) Judgement: Good judgement present (Psych) Results Reviewed Results Reviewed: Colonoscopy Operative Note Operative Note Date of Service: 12/23/24 Narrative: Procedure: Colonoscopy Indication: Positive cologuard Endoscopist: Renetta Steele MD Procedure: The patient was brought to the procedure room and placed in the left lateral decubitus position. IV medications were administered by the anesthesia provider in attendance. A digital rectal exam was performed which was normal. A distal attachment cap was affixed to the tip of the colonoscope which was then inserted through the anus and advanced through the colon to the cecum at 70 cm,and terminal ileum. Appendiceal orifice and ileocecal valve were identified. Mucosa was carefully examined under high definition white light as the instrument was slowly withdrawn in a retrograde panoramic fashion. Retroflexion was performed in rectum. The procedure was not difficult. There were no immediate obvious complications. The quality of the prep was BBPS: 3+2+3 = adequate Withdrawal time 13 minutes. Limitations: No limitations. Findings: Mucosa: Normal to cecum and terminal ileum which was deeply intubated to 30 cm. Protruding lesions: 1 sessile polyp of size 3 mm in cecum. Cold snare polypectomy was performed. The polyp was completely removed and retrieved. 1 sessile polyp of size 6 mm in rectal colon. Cold snare polypectomy was performed. The polyp was completely removed and retrieved. Medium internal hemorrhoids without stigmata of recent bleeding. Excavated lesions: Extensive diverticulosis of whole colon L >R. Impression: 1. Normal colon and terminal ileum mucosa 2. Total of 2 polyps removed 3. Diverticulosis 4. Hemorrhoids Recommendations: - Follow path results. - Repeat colonoscopy in 7-10 years if patient in good health. - Typically no further endoscopy or imaging needed if cologuard determined to be false positive, however given CT findings from last year a CT abd/pel with IV contrast has been ordered to r/o small bowel mass. PATHOLOGY Collected: 12/23/24 Location: [facility] Received: 12/23/24 Diagnosis A. Colon, cecum, polypectomy: Tubular adenoma; negative for high-grade dysplasia. B. Rectum, polypectomy: Hyperplastic polyp Date of Service: 01/07/25 Procedure(s): CT abdomen pelvis w IV con Accession Number(s): [id number] cc: Sukh Patel [facility]-; Renetta Steele MD~ Report Number: [id number]: Total DLP = 162.00 mGy-cm EXAMINATION: CT ABDOMEN PELVIS WITH IV CONTRAST HISTORY: K63.9 - Disease of intestine, unspecified COMPARISON: Comparison is made with the prior examination dated 01/22/2024. TECHNIQUE: CT scan of the abdomen and pelvis was performed following administration of 85 mL Omnipaque 350 using standard departmental protocol. Coronal and sagittal reformatted images were generated and reviewed. Oral contrast material was not administered at the request of the referring physician. This CT exam was performed with one or more of the following dose reduction techniques: automated exposure control, adjustment of the mA and/or kV according to patient size, use of iterative reconstruction technique. DLP: 162 mGy-cm FINDINGS: LOWER CHEST: The visualized lung bases are clear. There is no pleural effusion. CARDIOVASCULATURE: The heart is normal in size. There is no pericardial effusion. LIVER: The liver is normal in size and contour. No liver mass is identified. The hepatic and portal veins are patent. GALLBLADDER / BILE DUCTS: The gallbladder is unremarkable. There is no intra or extrahepatic biliary ductal dilatation. SPLEEN: The spleen is normal in size. No focal splenic lesion is identified. PANCREAS: The pancreas is unremarkable in appearance. ADRENAL GLANDS: Within normal limits. KIDNEYS/RETROPERITONEUM: No renal calculi are identified. There is no hydronephrosis. No renal masses are identified. LYMPH NODES: No abdominal or pelvic lymphadenopathy. VASCULATURE: The abdominal aorta demonstrates atherosclerotic calcification, but is normal in caliber. MESENTERY/PERITONEUM: No free fluid. No masses. There is no free intraperitoneal gas. STOMACH: The stomach is collapsed, limiting evaluation. SMALL BOWEL: The small bowel is normal in caliber. COLON: The colon is largely collapsed. It is difficult to exclude wall thickening. There is diverticulosis of the sigmoid colon, without evidence of diverticulitis. APPENDIX: The appendix is not seen, however no inflammatory changes are seen adjacent to the cecum. URINARY BLADDER/PELVIC ORGANS: The urinary bladder is collapsed, limiting evaluation. The uterus is unremarkable. There are prominent vessels in the left adnexa BONES / SOFT TISSUES: There is grade I spondylolisthesis of L5 on S1. There is osteoarthritis of the right hip with joint space narrowing and subchondral cyst formation. CT/CT abdomen pelvis w IV con IMPRESSION: The colon is collapsed making evaluation for wall thickening difficult. No small bowel abnormality is identified Assessment & Plan Assessment & Plan (1) Colon polyps: Comment: 12/23/24 colonoscopy complete with adequate prep-Normal colon and terminal ileum mucosa, Total of 2 polyps removed- Tubular adenoma from cecum, and Hyperplastic from rectal colon; diverticulosis, internal Hemorrhoids Code(s): K63.5 - Polyp of colon Category: Medical Qualifiers: Colon location: unspecified part of colon Colon polyp type: adenomatous Qualified Code(s): D12.6 - Benign neoplasm of colon, unspecified Plan: We reviewed the colonoscopy results in detail, including findings of a polyp and diverticulosis. The patient was advised to repeat colonoscopy in 7-10 years, or sooner if clinically indicated. She was counseled to report any new symptoms such as changes in stool pattern, unexplained weight loss, or rectal bleeding. The patient verbalized understanding. (2) Diverticulosis: Code(s): K57.90 - Diverticulosis of intestine, part unspecified, without perforation or abscess without bleeding Category: Medical Plan: Findings were noted from the 12/23/24 colonoscopy. We also reviewed lifestyle modifications to prevent constipation. Reinforced lifestyle modifications to promote regularity: -higher fiber diet, examples provided -adequate hydration with water -150 minutes of moderate intensity exercise per week (3) Person consulting for explanation of examination or test finding: Code(s): Z71.2 - Person consulting for explanation of examination or test findings Category: Medical Plan: A repeat 01/07/25 CT ordered by the endoscopist to evaluate for possible small bowel mass due to prior imaging that showed small bowel dilation. Today, we reviewed the results, which showed no evidence of small bowel abnormality. We discussed that the term ?collapse? used in the report likely refers to a lack of gas, which can limit full colonic visualization. Given the reassuring colonoscopy findings and the patient?s asymptomatic status, we reached a shared decision to defer further imaging unless symptoms develop. We support the PCP?s plan for continued monitoring of the left inguinal hernia noted on 01/28/24. The patient was encouraged to discuss this further at her upcoming General Surgery consultation. She was also encouraged to continue discussion with her PCP regarding the osteoarthritis findings in the right hip, including the presence of a subchondral cyst. All of the patient?s questions were addressed, and ample time was provided for discussion Plan Shared decision making to follow up as needed Time: I spent a total of 50 minutes on the date of encounter which includes: Preparing to see the patient (reviewed previous documentation, test results and medical history) Performing a medically appropriate exam and/or evaluation Ordering medications, tests, and procedures Documenting clinical information in the health record Coding Level of Care Code Established Pt Est Pt Level 4 (44467) Patient Type Established Diagnoses Adenomatous polyp of colon, unspecified part of colon D12.6 Colon location: unspecified part of colon Colon polyp type: adenomatous Diverticulosis K57.90 Person consulting for explanation of examination or test finding Z71.2
[2025-01-14 14:15] VITALS: BP 126/76; PULSE 66; O2SAT 96; BMI 18.6
--- OUTSIDE RECORDS SUMMARY | 2025-01-14 14:15 | XMS_ITS | Clinical Summary ---
Author Organization [facility] Address [address] [place] [address] Care Team Providers Care Forest Examiner Name Role Phone Sukh Patel Primary Care Provider [phone] Allergies Active Allergy Reactions Criticality Noted Date [...] age to complete this topic Care Teams Forest Examiner Relationship Specialty Start Date End Date Sukh Patel [address] [facility] [place] [address] PCP - General 07/01/17
== END 2025-01-14 15:02 | disposition home or self-care (01) ==
PROVIDERS: PCP Nurse Practitioner Family; Visit Provider Nurse Practitioner Family
DX: D12.6 Benign neoplasm of colon, unspecified (principal); K57.90 Diverticulosis of intestine, part unspecified, without perforation or abscess without bleeding; Z71.2 Person consulting for explanation of examination or test findings
CPT/HCPCS: 99214

== ENCOUNTER → 2025-01-14 14:11 | Outpatient (BNVA) | payer MEDICARE, SELFPAY | PROVIDERS: PCP Nurse Practitioner Family; Visit Provider Nurse Practitioner Family | DX: Z71.2 Person consulting for explanation of examination or test findings (principal); K63.5 Polyp of colon; D12.6 Benign neoplasm of colon, unspecified; K57.90 Diverticulosis of intestine, part unspecified, without perforation or abscess without bleeding | CPT/HCPCS: 99212 ==

== ENCOUNTER 2025-03-17 13:46 | Outpatient (AMB) | payer MEDICARE, SELFPAY ==
--- NOTE | 2025-03-17 13:52 | A.OFFPC_ITS ---
Vital Signs 03/17/25 13:53 03/17/25 16:37 Height 4 ft 11 in Weight 92 lb BMI 18.6 BP 148/88 H 132/80 Blood Pressure Location Lt brachial Position Sitting Respiration 16 Pulse 60 Pulse Source Pulse Oximeter Temp 98.4 F Temp Source Oral Pulse Oximetry (%) 97 Oxygen Delivery Method Room Air Intake Visit Reasons: 4m follow up Agile Test Lead Required: No Accompanied by: Self / Same As Patient Allergies varenicline (From CHANTIX) Allergy (Severe, Verified 03/17/25 16:37) HIVES erythromycin base (ERYTHROMYCIN BASE) Allergy (Intermediate, Verified 03/17/25 16:37) RASH Macrolide Antibiotics (MACROLIDE ANTIBIOTICS) Allergy (Intermediate, Verified 03/17/25 16:37) RASH Sulfa (Sulfonamide Antibiotics) (SULFA (SULFONAMIDE ANTIBIOTICS)) Allergy (Intermediate, Verified 03/17/25 16:37) RASH amoxicillin Allergy (Unknown, Verified 03/17/25 16:37) Unknown barium sulfate Allergy (Unknown, Verified 03/17/25 16:37) Hives penicillin V Allergy (Unknown, Verified 03/17/25 16:37) Rash bupropion (From Wellbutrin) Adverse Reaction (Intermediate, Verified 03/17/25 16:37) Tinnitus sertraline (From Zoloft) Adverse Reaction (Mild, Verified 03/17/25 16:37) Insomnia citalopram Adverse Reaction (Unknown, Verified 03/17/25 16:37) Burning sensation all over body Erythromycin Allergy (Unknown, Uncoded 03/17/25 16:37) Unsure Sulfa drugs Allergy (Unknown, Uncoded 03/17/25 16:37) Unsure sertraline Adverse Reaction (Uncoded 03/17/25 16:37) Insomnia Medication List - Last Reconciled 03/17/25 by Sukh Patel, ORGANIZATIONAL PSYCHOLOGIST- amlodipine 0.5 tabs PO BEDTIME atenolol 37.5 mg (1.5 x 25 mg) PO DAILY calcium carbonate-vitamin D3 600 mg-10 mcg (400 unit) (Calcium with Vitamin D) 1 tab PO BID 30 days diazepam 5 mg PO BID PRN 30 days levothyroxine 25 mcg PO DAILY lisinopril 40 mg PO DAILY omeprazole 20 mg PO DAILY romosozumab-aqqg (Evenity) 210 mg (2.34 mL) subcut .q mo Tobacco use date assessed: 03/17/25 Fall risk assessment: No Falls in past year Last assessed Fall Risk: 03/17/25 Dental Screening Dental Screen Date: 03/17/25 Did you have a dental visit in the last 12 months?: Yes Did you have a dental problem in the last 6 months where you did not have access to dental care?: No Was dental information given to patient?: Yes HPI 4m follow up HPI Details Chief Complaint The patient presents for a routine follow-up visit. History of Present Illness The patient is a 69-year-old female presenting with a 4-month follow-up visit. She reports doing quite well overall, with no current symptoms of depression, although she continues to experience anxiety and has a history of Post-Traumatic Stress Disorder (PTSD). She is coping well and regularly sees a psychiatrist for management. The patient experiences insomnia, which she identifies as her primary issue at present. She continues to have nightmares, which can contribute to her sleep disturbances. She is under the care of an cotton ball bagger for osteoporosis and a diesel service apprentice for additional health concerns. She has a history of breast carcinoma and continues to follow up with oncology for this condition. The patient receives her mammograms at a different facility, [facility], and is advised to continue her follow-ups with hematology/oncology. HTN: on medication. second reading much better. I think anxiety plays a big part with her readings Social History Health Maintenance - Consideration of low dose CT scan for future preventative care -colon screen is up to date Review of Systems - Psychiatric: Reports anxiety and insom alex, denies depression -denies any cp, increased SOB Physical Exam General: Cooperative, healthy appearing, comfortable, no acute distress and well developed Orientation: Patient oriented x3 Limitations: No limitations Head: Normal to inspection Ears: Hearing grossly normal bilaterally Nose: Normal external nose present Face and sinus: Normal facial exam Eyes: Appearance normal, both eyes and all related structures Neck: Normal visual inspection and Yes full ROM Respiratory: Slightly diminished, moving air bilaterally, slightly coarse Cardiovascular: Regular rate and rhythm. Normal S1 and S2 Neuro: Patient oriented x3 Extremities: Normal to inspection, no edema noted Results Plan The patient will continue her regular follow-ups with her psychiatrist to manage anxiety and PTSD symptoms, including insomnia and nightmares. She is advised to consider a low dose CT scan as a preventative measure in the future. She will maintain her appointments with endocrinology for osteoporosis management and nephrology for other health concerns. Continued follow-up with oncology is recommended for her history of breast carcinoma, and she should ensure regular mammograms at [facility]. Discussion Notes I discussed with the patient the importance of continuing her psychiatric care to manage anxiety and PTSD symptoms effectively. We also talked about the potential benefits of a low dose CT scan for future preventative care, which she will consider. I advised her to maintain her follow-up appointments with endocrinology and nephrology, and to continue her oncology follow-ups for her history of breast carcinoma. Patient Instructions - Continue regular visits with your psyc hiatrist for anxiety and PTSD management. - Consider scheduling a low dose CT scan in the future for preventative care. - Keep your appointments with endocrinol ogy and nephrology. - Ensure regular mammograms at [facility] and follow up with oncology. [facility] Medical History Person consulting for explanation of examination or test finding Diverticulosis Colon polyps Hx of ulcer disease Renal artery stenosis Hypothalamic hypothyroidism Hypertension Surgical History Hx of colonoscopy Hx of lumpectomy Femoral hernia of right side History of tonsillectomy Family History Family/Other Brain cancer Social History Household Members: None Housing: House Are you a primary child day care provider to a significant other at home: No Do you presently have visiting nurse or other home services: No Alcohol intake: current Alcohol intake frequency: holidays/special occasions only Patient Tobacco Use Status: Current everyday Tobacco user Tobacco use type: Cigarette Cigarette Packs Per Day: 1 e-Cigarette/Vaping Use: Never Used Second Hand Smoke Exposure: No Substance Use Type: Marijuana service: No Current occupational status: employed 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 Current occupational exposures/hazards: No Cognitive needs: No Hearing needs: Yes Vision needs: No Questionnaire Thrive Questionnaire Date Thrive assessed: 11/17/24 I am a: Patient What is your living situation today?: I have a steady place to live Within the past 12 months, did the food you bought not last and you didn't have the money to get more?: Sometimes True Within the past 12 months, did you worry whether your food would run out before you got money to buy more?: Sometimes True Do you have trouble paying for medicines?: Yes Do you have trouble getting transportation to medical appointments?: Yes Do you have trouble paying your heating and electricity bill?: No Do you have trouble taking care of your child, family member or friend?: No Do you have trouble with day-to-day activities such as bathing, preparing meals, shopping, managing finances, etc.?: Yes Are you currently unemployed and looking for a job?: No Are you interested in more education?: No Currently or been in a relationship where the following occur: No concerns reported THRIVE Score: 3 LELE-7 AMB Questionnaire LELE-7 Date LELE - 7 assessed: 03/17/25 Feeling nervous, anxious, or on edge: 1 = Several days Not being able to stop or control worryin = More than half the days Worrying too much about different things: 2 = More than half the days Trouble relaxin = More than half the days Being so restless that it is hard to sit still: 0 = Not at all Becoming easily annoyed or irritable: 1 = Several days Feeling afraid as if something awful might happen: 3 = Nearly every day Total LELE-7 score (0-4 normal; 5-9 mild; 10-14 moderate; 15-21 severe): 11 Source: Developed by Drs. Andrea Willis, Dayana Carter, Ata Perkins and colleagues, with an educational jessie from [employer]. LELE-7 Assessment Billing LELE-7 Assessment Tool: LELE-7 Assessment 43156 (denies any active SI or HI, has a therapist and a psychiatrist) Physical exam (Primary Care) Vital Signs: Last Vital Signs Temp 98.4 F 03/17/25 13:53 Pulse 60 03/17/25 13:53 Resp 16 03/17/25 13:53 BP 148/88 H 03/17/25 13:53 Pulse Ox 97 03/17/25 13:53 Oxygen Delivery Method Room Air 03/17/25 13:53 BMI result Body Mass Index 18.6 Tobacco/Smoking Status: Tobacco use Status Tobacco use date assessed 03/17/25 03/17/25 14:01 Patient Tobacco Use Status Current everyday Tobacco 03/17/25 14:01 Tobacco use type Cigarette 03/17/25 14:01 e-Cigarette/Vaping Use Never Used 03/17/25 14:01 Thrive Assessment: Date of Thrive Assessment Date Thrive assessed 11/17/24 03/17/25 14:01 Currently or been in a relationship where the following occur: No concerns reported Coding Level of Care Code Est Pt Level 3 (82334) Diagnoses PTSD (post-traumatic stress disorder) F43.10 Anxiety F41.9 Depression F32.A Renovascular hypertension I15.0 Hypertension type: renovascular hypertension Osteoporosis M81.0 Additional Codes LELE-7 Assessment Billing - LELE-7 Assessment Tool: LELE-7 Assessment 79642 ([id number]) Assessment & Plan Assessment & Plan (1) PTSD (post-traumatic stress disorder): Code(s): F43.10 - Post-traumatic stress disorder, unspecified Category: Medical (2) Anxiety: Code(s): F41.9 - Anxiety disorder, unspecified Category: Medical (3) Depression: Code(s): F32.A - Depression, unspecified Category: Medical (4) Hypertension: Code(s): I10 - Essential (primary) hypertension Category: Medical Qualifiers: Hypertension type: renovascular hypertension Qualified Code(s): I15.0 - Renovascular hypertension (5) Osteoporosis: Code(s): M81.0 - Age-related osteoporosis without current pathological fracture Category: Medical Plan . Orders: Orders UA CC w/rflx Micro + Cult Today F32.A - Depression, unspecified, F41.9 - Anxiety disorder, unspecified, F43.10 - Post-traumatic stress disorder, unspecified, I15.0 - Renovascular hypertension Vitamin D 25-OH Total Today M81.0 - Age-related osteoporosis without current pathological fracture Complete Blood Count Auto Diff Today F32.A - Depression, unspecified, F41.9 - Anxiety disorder, unspecified, F43.10 - Post-traumatic stress disorder, unspecified, I15.0 - Renovascular hypertension Comprehensive [place]. Panel Fast Today F32.A - Depression, unspecified, F41.9 - Anxiety disorder, unspecified, F43.10 - Post-traumatic stress disorder, unspecified, I15.0 - Renovascular hypertension TSH reflex Free T4 Today F32.A - Depression, unspecified, F41.9 - Anxiety disorder, unspecified, F43.10 - Post-traumatic stress disorder, unspecified, I15.0 - Renovascular hypertension Lipid Panel Today F32.A - Depression, unspecified, F41.9 - Anxiety disorder, unspecified, F43.10 - Post-traumatic stress disorder, unspecified, I15.0 - Renovascular hypertension
[2025-03-17 13:53] VITALS: BP 148/88; PULSE 60; RESP 16; TEMP 36.9; O2SAT 97; BMI 18.6
--- OUTSIDE RECORDS SUMMARY | 2025-03-17 14:41 | XMS_ITS | Clinical Summary ---
Author Organization [facility] Address [address] [place] [address] Care Team Providers Care Institutional Commodity Analyst Name Role Phone Sukh Patel Primary Care Provider [phone] Allergies Active Allergy Reactions Criticality Noted Date [...] Screening (DEXA Scan) 10/13/2019 Influenza Vaccine (#1) 2025 RSV Adult > 60+ Yrs or Pregn ant (1 - 1-dose 75+ series) 2029 Hepatitis B Vaccines Aged Out No long er eligible based on patient's age to complete this topic RSV Ped < 20 months Aged Out No longe r eligible based on patient's age to complete this topic Care Teams Institutional Commodity Analyst Relationship Specialty Start Date End Date Sukh Patel [address] [facility] [place] [address] PCP - General 07/01/17
--- OUTSIDE RECORDS SUMMARY | 2025-03-17 14:42 | XMS_ITS | Clinical Summary ---
Author Organization [facility] Address [address] [facility] [address] [place] [address] Phone Care Team Providers Care Tester Operator Name Role Phone Sukh Patel NP Primary Care Provider [phone] Allergies Active Allergy Reactions Criticality Noted Date Comments Citalopram 07/01/2017 Penicillin V Other (see comments) 07/01/2017 Varenicline Other (see comments) 07/01/2017 Medications Probiotic Product (PROBIOTIC-10 PO) Take 1 capsule by mouth 1 (one) time each day Active Evening Solo Oil 500 MG capsule Take 1 capsule [...] Cancer Screening: Sigmoidoscopy 10/13/2003 Influenza Vaccine (#1) 2025 Hepatitis B Vaccine Aged Out No longe r eligible based on patient's age to complete this topic Insurance [facility] PPO Blue([id number]) [place] [address] [place] [address] PPO Blue([id number]) Care Teams Tester Operator Relationship Specialty Start Date End Date Sukh Patel NP [address] [place] [address] PCP - General 08/14/20
--- OUTSIDE RECORDS SUMMARY | 2025-03-17 14:42 | XMS_ITS | Clinical Summary ---
Author Organization [facility] it Address [address] [place] [address] Care Team Providers Care Social Services Technician Name Role Phone Sukh Patel NP [...] rism, cig Mother (Age 77) uncertain whether OR or CVA Other Sister (Age 62) OR Social History Tobacco Use Types Packs/Day Years [...] Team (Late st Contact Info) Description 04/18/2025 10:40 AM EDT Appointment Radiology Department [address] [address] 05/09/2025 10:00 AM EDT Office Visit General Surgery - [place] [address] [id number] Marco Antonio Hassan MD [address] [address] Health Maintenance Due Date Last Done Comments COVID-19 Vaccine (#1) 10/13/1960 Pneumococcal Vaccine: 50+ Years (1 of 2 - PCV) 1973 Zoster Vaccines (1 of 2) 1973 Cholesterol Screening (Lipid Panel) 07/13/2022 Colorectal Cancer Screening: Colonoscopy 07/13/2022 Falls Risk Assessment 07/13/2022 Hepatitis C Screening 07/13/2022 Hypertension/CHF/CAD Annual BMP Blood Test 07/13/2022 Osteoporosis Screening (Bone Density Screening) 07/13/2022 Social Influencers of Health Screening 07/13/2022 Depression Screening 08/04/2024 Influenza Vaccine (#1) 2025 Breast Cancer Screening 04/02/2026 04/02/20 24, [...] in conjunction with computer aided detection. Tomosynthesis as well as 2D C-View imaging were obtained. Comparison: Comparison made to multiple priors, most recent March 27, 2023, and most remote April 28, 2015. Breast composition: The breast tissue is heterogeneously dense, which may obscure small masses. Right breast: Postlumpectomy and posttreatment changes. No suspicious masses, suspicious calcifications or other abnormalities are seen. Left breast: No suspicious masses, suspicious calcifications or other abnormalities are seen. IMPRESSION: Impression: Bilateral breasts: Benign, no specific mammographic evidence of malignancy. Normal interval follow-up is recommended in 12 months. BI-RADS: Category 2: Benign [address] [id number] [phone] Procedure Note Odalis Mak MD - 05/19/2024 This is a summary report. The complete report is available in thepatient's medical record. If you cannot access the medical record, pleasecontact the sending organization for a detailed fax or copy. History: Personal history of right breast lumpectomy for breast cancer [id number]. Study: SCREENING MAMMOGRAPHY BI 2-VIEW BREAST INC [...] in 12 months. BI-RADS: Category 2: Benign [address] [address] [phone] Marco Antonio Hassan MD IMG XR PROCEDURES Final Result from Last 3 Months or Most Recently Relevant to Health Maintenance Insurance [employer] [place] MEDICARE ADVANTAGE Care Teams Social Services Technician Relationship Specialty Start Date End Date Sukh Patel NP [address] [place], [place] PCP - General 07/01/17
[2025-03-17 16:37] VITALS: BP 132/80
== END 2025-03-17 16:24 | disposition home or self-care (01) ==
LOC: HO.HMCC 13:47
PROVIDERS: PCP Nurse Practitioner Family; Visit Provider Nurse Practitioner Family
DX: F43.10 Post-traumatic stress disorder, unspecified (principal); F41.9 Anxiety disorder, unspecified; F32.A Depression, unspecified; I10 Essential (primary) hypertension; M81.0 Age-related osteoporosis without current pathological fracture

== ENCOUNTER → 2025-03-17 13:46 | Outpatient (BNVA) | payer MEDICARE, SELFPAY | PROVIDERS: PCP Nurse Practitioner Family; Visit Provider Nurse Practitioner Family | DX: M81.0 Age-related osteoporosis without current pathological fracture (principal); G47.00 Insomnia, unspecified; F43.10 Post-traumatic stress disorder, unspecified; F41.9 Anxiety disorder, unspecified; F32.A Depression, unspecified; I15.0 Renovascular hypertension | CPT/HCPCS: 96127; 99212 ==

== ENCOUNTER 2025-04-11 11:23 | Outpatient (AMB) | payer MEDICARE, MEDICAID, SELFPAY ==
--- NOTE | 2025-04-11 11:25 | A.OFFVIS_ITS ---
Vital Signs 04/11/25 11:28 Height 4 ft 9.76 in Weight 93 lb 4.089 oz BMI 19.7 BP 132/72 Blood Pressure Location Lt brachial Position Sitting Pulse 56 Pulse Source Pulse Oximeter Pulse Oximetry (%) 95 Oxygen Delivery Method Room Air Intake Visit Reasons: Osteoporosis Intake Note: Patient present today for Osteoporosis follow up. Puncher And Fastener Required: No Accompanied by: Self / Same As Patient Allergies varenicline (From CHANTIX) Allergy (Severe, Verified 04/11/25 11:32) HIVES erythromycin base (ERYTHROMYCIN BASE) Allergy (Intermediate, Verified 04/11/25 11:32) RASH Macrolide Antibiotics (MACROLIDE ANTIBIOTICS) Allergy (Intermediate, Verified 04/11/25 11:32) RASH Sulfa (Sulfonamide Antibiotics) (SULFA (SULFONAMIDE ANTIBIOTICS)) Allergy (Intermediate, Verified 04/11/25 11:32) RASH amoxicillin Allergy (Unknown, Verified 04/11/25 11:32) Unknown barium sulfate Allergy (Unknown, Verified 04/11/25 11:32) Hives penicillin V Allergy (Unknown, Verified 04/11/25 11:32) Rash bupropion (From Wellbutrin) Adverse Reaction (Intermediate, Verified 04/11/25 11:32) Tinnitus sertraline (From Zoloft) Adverse Reaction (Mild, Verified 04/11/25 11:32) Insomnia citalopram Adverse Reaction (Unknown, Verified 04/11/25 11:32) Burning sensation all over body trazodone Adverse Reaction (Unknown, Verified 04/11/25 11:35) Vertigo Erythromycin Allergy (Unknown, Uncoded 04/11/25 11:32) Unsure Sulfa drugs Allergy (Unknown, Uncoded 04/11/25 11:32) Unsure sertraline Adverse Reaction (Uncoded 04/11/25 11:32) Insomnia Medication List - Last Reconciled 04/11/25 by Andrea Carballo MD amlodipine 0.5 tabs PO BEDTIME atenolol 37.5 mg (1.5 x 25 mg) PO DAILY calcium carbonate-vitamin D3 600 mg-10 mcg (400 unit) (Calcium with Vitamin D) 1 tab PO BID 30 days diazepam 5 mg PO BID PRN 30 days levothyroxine 25 mcg PO DAILY lisinopril 40 mg PO DAILY omeprazole 20 mg PO DAILY romosozumab-aqqg (Evenity) 210 mg (2.34 mL) subcut .q mo HPI Comments Details: 69 YO Female with is seen in consultation at the request of PCP for Osteoporosis. First diagnosed in 4-5 yrs ago . Not Received treatment in the past . Was prescribed alendronate but did not take No history of pathologic fracture or ONJ. Has few servings of dietary calcium per day Takes Calcium supplement 600 mg daily in divided doses. Takes ? IU of Vitamin D daily. Take PPI,- anticoagulant, -antiepileptic or -glucocorticoid medication. 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 No UTD on dental cleanings and sees dentist every 6 months. No planned upcoming dental work or extractions. Smokes 1 08/05 ppd DXA [facility] 07/30/22:[facility] [address] [place], [place] [address] Mammography Report Signed Patient: Fabiola Calhoun MR#: [id number] : 1955 Acct:[id number] Age/Sex: 66 / F ADM Date: 07/30/22 Loc: HO.MAMMO Attending Dr: Sukh RAMIREZ Ordering Physician: Sukh Patel Results: Date of Service: 07/30/22 Follow Up: Procedure(s): XR DEXA axial skeleton Accession Number(s): [id number] cc: Sukh Patel~ EXAMINATION: BONE DENSITOMETRY CLINICAL INDICATION: Asymptomatic menopausal state. COMPARISON: Previous BD dated 07/25/2020 and baseline BD dated 10/10/2017. TECHNIQUE: Using a [employer] DXA System (software version: 13.1) manufactured by [employer], dual-energy x-ray absorptiometry was performed of the lumbar spine and left hip. The images are of good technical quality. Summary results are attached. FINDINGS: AP SPINE L1-L3 (excluding L4): The data of L1-L4 has been changed to exclude the L4 vertebral body, because degenerative sclerosis at this level may cause overestimation of lumbar spine density. Current: BMD 0.692 g/cm2, Z-score -1.7, T-score -4.0, osteoporosis, 13.1% decrease from previous, 6.2% decrease from baseline (<5% change is not significant). Prior: BMD 0.796 g/cm2. Baseline: BMD 0.738 g/cm2. LEFT FEMUR, NECK: Current: BMD 0.705 g/cm2, Z-score -0.4, T-score -2.4, osteopenia. Prior: BMD 0.666 g/cm2. Baseline: BMD 0.683 g/cm2. LEFT FEMUR, TOTAL: Current: BMD 0.683 g/cm2, Z-score -0.8, T-score -2.6, osteoporosis, 3.0% decrease from previous, 0.3% decrease from baseline (<5% change is not significant). Prior: BMD 0.704 g/cm2. Baseline: BMD 0.685 g/cm2. IDENTIFIED RISK FACTORS: Osteoporosis, tobacco use (current smoker), height loss, menopause. HISTORY OF FRACTURE: None listed. MEDICATIONS: Calcium/multivitamin, ERT/SERMS. MM/XR DEXA axial skeleton IMPRESSION: 1. DIAGNOSIS: Osteoporosis based on the lowest T-score value of -4.0 in the lumbar spine applying World Health Organization criteria Labs: Lab work was ordered for secondary workup the patient did not go for. No fracture since last visit. Currently taking calcium and vitamin-D Hx of RT for breast cancer Attempted to get coverage for [facility] in which co-pay was too high. Now is reconsidering pain the co-pay [facility] Medical History (Reviewed 03/17/25 @ 16:36 by Sukh Patel [facility]) Person consulting for explanation of examination or test finding Diverticulosis Colon polyps Hx of ulcer disease Renal artery stenosis Hypothalamic hypothyroidism Hypertension Surgical History Hx of colonoscopy Hx of lumpectomy Femoral hernia of right side History of tonsillectomy Family History Family/Other Brain cancer Social History Household Members: None Housing: House Are you a primary primary health care nurse to a significant other at home: No Do you presently have visiting nurse or other home services: No Alcohol intake: current Alcohol intake frequency: holidays/special occasions only Patient Tobacco Use Status: Current everyday Tobacco user Tobacco use type: Cigarette Cigarette Packs Per Day: 1 e-Cigarette/Vaping Use: Never Used Second Hand Smoke Exposure: No Substance Use Type: Marijuana service: No Current occupational status: employed 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 Current occupational exposures/hazards: No Cognitive needs: No Hearing needs: Yes Vision needs: No Physical Exam Vital Signs: Last Vital Signs Pulse 56 04/11/25 11:28 BP 132/72 04/11/25 11:28 Pulse Ox 95 04/11/25 11:28 Oxygen Delivery Method Room Air 04/11/25 11:28 BMI result Body Mass Index 19.7 Assessment & Plan Assessment & Plan (1) Osteoporosis: Code(s): M81.0 - Age-related osteoporosis without current pathological fracture Category: Medical Plan: This is a 69-year-old white female with a history of osteoporosis currently being treated with calcium, vitamin-D and alendronate with reported declining bone density in the lumbar spine. Secondary causes were ruled out. Co-pay for Evenity was too high The plan is reinitiate the process for using Evenity initially to be followed by Prolia or Reclast after year. I went over side effects of Evenity as well as Prolia or Reclast. We also discussed perhaps using the Prolia initially as this has more data for use in breast cancer that Evenity. However, patient feels getting the most bone density increase with the Evenity initially would be the way she would like to proceed Coding Level of Care Code Est Pt Level 3 (71363) Diagnoses Osteoporosis M81.0
[2025-04-11 11:28] VITALS: BP 132/72; PULSE 56; O2SAT 95; BMI 19.7
--- OUTSIDE RECORDS SUMMARY | 2025-04-11 14:08 | XMS_ITS | Encounter Summary ---
Author Organization [facility] Address [address] [facility] [address] [facility] [address] [place] [address] Phone Care Team Providers Care Cradle Slide Maker Name Role Phone Sukh Patel NP Primary Care Provider [phone] Encounter Details Date Type Department Care Team (Late st Contact Info) Description 03/06/2022 Telephone [facility] [address] [facility] [address] [place] [address] Waqas Brasher MD Social History [...] refill for amlodipine 5 mg sent to [facility] on [facility]. She has called several times and hasn't been able to get it filled. Please advise Thank you documented in this encounter Plan of Treatment Not on file documented as of this encounter Visit Diagnoses Not on filedocumented in this encounter Care Teams Cradle Slide Maker Relationship Specialty Start Date End Date Sukh Patel NP [address] [place] [address] PCP - General 08/14/20 documented as of this encounter
--- OUTSIDE RECORDS SUMMARY | 2025-04-11 14:08 | XMS_ITS | Clinical Summary ---
Author Organization [facility] Address [address] [place] [address] Care Team Providers Care Bronze Chaser Name Role Phone Sukh Patel Primary Care Provider [phone] Allergies Active Allergy Reactions Criticality Noted Date [...] age to complete this topic Care Teams Bronze Chaser Relationship Specialty Start Date End Date Sukh Patel [address] [facility] [place] [address] PCP - General 07/01/17
--- OUTSIDE RECORDS SUMMARY | 2025-04-11 14:08 | XMS_ITS | Clinical Summary ---
Author Organization [facility] Address 100 [facility] [address] [place] [address] Phone Care Team Providers Care Superintendent Logging Name Role Phone Sukh Patel NP Primary Care Provider [phone] Allergies Active Allergy Reactions Criticality Noted Date Comments Citalopram 07/01/2017 Penicillin V Other (see comments) 07/01/2017 Varenicline Other (see comments) 07/01/2017 Medications Probiotic Product (PROBIOTIC-10 PO) Take 1 capsule by mouth 1 (one) time each day Active Evening [place] Oil 500 MG capsule Take 1 capsule [...] patient's age to complete this topic Insurance [facility] PPO Blue([id number]) [place] [address] PPO Blue([id number]) Care Teams Superintendent Logging Relationship Specialty Start Date End Date Sukh Patel NP [address] [place] [address] PCP - General 08/14/20
--- OUTSIDE RECORDS SUMMARY | 2025-04-11 14:08 | XMS_ITS | Clinical Summary ---
Author Organization [facility] it Address [address] [place] [address] Care Team Providers Care Pencil Maker Name Role Phone Sukh Patel NP [...] rism, cig Mother (Age 77) uncertain whether [place] or CVA Other Sister (Age 62) [place] Social History Tobacco Use Types Packs/Day Years [...] 04/18/2025 10:40 AM EDT Appointment Radiology Department [address] [address] 05/30/2025 10:00 AM EDT Office Visit General Surgery - [address] [place] [address] Marco Antonio Hassan MD [address] [place] [address] Health Maintenance Due Date Last Done Comments COVID-19 Vaccine (#1) 10/13/1960 Pneumococcal Vaccine: 50+ Years (1 of 2 - PCV) 1973 Zoster Vaccines (1 of 2) 1974 Cholesterol Screening (Lipid Panel) 07/13/2022 Colorectal Cancer Screening: Colonoscopy 07/13/2022 Falls Risk Assessment 07/13/2022 Hepatitis C Screening 07/13/2022 Hypertension/CHF/CAD Annual BMP Blood Test 07/13/2022 Medicare Annual Wellness Visit 07/13/2022 Osteoporosis Screening (Bone Density Screening) 07/13/2022 [...] in 12 months. BI-RADS: Category 2: Benign [address] [address] [phone] Procedure Note Odalis Mak MD - 05/19/2024 This is a summary report. The complete report is available in thepatient's medical record. If you cannot access the medical record, pleasecontact the sending organization for a detailed fax or copy. History: Personal history of right breast lumpectomy for breast cancer [id number]. Study: SCREENING MAMMOGRAPHY BI 2-VIEW BREAST INC [...] in 12 months. BI-RADS: Category 2: Benign [address] [address] [phone] Marco Antonio Hassan MD IMG XR PROCEDURES Final Result from Last 3 Months or Most Recently Relevant to Health Maintenance Insurance BLUE [employer]OSS - [place] MEDICARE ADVANTAGE Care Teams Pencil Maker Relationship Specialty Start Date End Date Sukh Patel NP [address] [place], [place] PCP - General 07/01/17
== END 2025-04-11 12:20 | disposition home or self-care (01) ==
PROVIDERS: PCP Nurse Practitioner Family; Visit Provider Internal Medicine Endocrinology, Diabetes & Metabolism
DX: M81.0 Age-related osteoporosis without current pathological fracture (principal)
CPT/HCPCS: 99213

== ENCOUNTER → 2025-04-11 11:23 | Outpatient (BNVA) | payer MEDICARE, SELFPAY | PROVIDERS: PCP Nurse Practitioner Family; Visit Provider Internal Medicine Endocrinology, Diabetes & Metabolism | DX: M81.0 Age-related osteoporosis without current pathological fracture (principal) | CPT/HCPCS: 99212 ==

== ENCOUNTER 2025-05-03 12:48 | Outpatient (AMB) | payer MEDICARE, MEDICAID, SELFPAY ==
--- NOTE | 2025-05-03 12:50 | MHC.OFFVIS ---
Vital Signs 05/03/25 12:51 Height 4 ft 10 in Weight 91 lb BMI 19.0 BP 136/78 Blood Pressure Location Lt brachial Position Sitting Pulse 64 Pulse Source Pulse Oximeter Pulse Oximetry (%) 95 Oxygen Delivery Method Room Air Intake Visit Reasons: f/u irregular bowel movement Intake Note: Patient f/u irregular bowel movement Patient cc: C.O. generalized abd pain, irregular BMs since colo, continued weight loss. Regional Airline Pilot Required: No Accompanied by: Self / Same As Patient Allergies varenicline (From CHANTIX) Allergy (Severe, Verified 04/11/25 11:32) HIVES erythromycin base (ERYTHROMYCIN BASE) Allergy (Intermediate, Verified 04/11/25 11:32) RASH Macrolide Antibiotics (MACROLIDE ANTIBIOTICS) Allergy (Intermediate, Verified 04/11/25 11:32) RASH Sulfa (Sulfonamide Antibiotics) (SULFA (SULFONAMIDE ANTIBIOTICS)) Allergy (Intermediate, Verified 04/11/25 11:32) RASH amoxicillin Allergy (Unknown, Verified 04/11/25 11:32) Unknown barium sulfate Allergy (Unknown, Verified 04/11/25 11:32) Hives penicillin V Allergy (Unknown, Verified 04/11/25 11:32) Rash bupropion (From Wellbutrin) Adverse Reaction (Intermediate, Verified 04/11/25 11:32) Tinnitus sertraline (From Zoloft) Adverse Reaction (Mild, Verified 04/11/25 11:32) Insomnia citalopram Adverse Reaction (Unknown, Verified 04/11/25 11:32) Burning sensation all over body trazodone Adverse Reaction (Unknown, Verified 04/11/25 11:35) Vertigo Erythromycin Allergy (Unknown, Uncoded 04/11/25 11:32) Unsure Sulfa drugs Allergy (Unknown, Uncoded 04/11/25 11:32) Unsure sertraline Adverse Reaction (Uncoded 04/11/25 11:32) Insomnia HPI HPI f/u irregular bowel movement: Details: Patient is a 69-year-old female with PMH hypothyriodism, depression with anxiety, PTSD, HTN, HLD, osteoporosis and seasonal allergy. F/u for persistent constipation and bowel habit changes since colonoscopy in December. Since the last visit, pt continues to experience irregular BMs?sometimes going up to three days without stool, followed by passage of small, pebble-like, possibly hard stools. Abdominal discomfort is present but mild and variable in location. No nausea, vomiting, hematochezia, or significant bloating. Dietary intake remains low in fiber, with heavy reliance on frozen/prepared foods and irregular meal times, attributed in part to high stress and disrupted schedule. Pt has reduced physical activity due to ongoing stress and time spent handling insurance issues. Weight remains low at ~93 lbs (previous baseline 97?98 lbs), but no rapid, unexplained weight loss. Compliance with prior recommendations suboptimal: Miralax used only prn (approx 3x since December), at subtherapeutic dosing (1/2 tsp, not standard capful). Omeprazole decreased to approx once weekly. Pt recalls prior EGD (2006?2007, external) for dysphagia and esophageal stricture due to chronic reflux, with dilation performed and omeprazole started at that time. No new GI alarm symptoms, no acute hospitalizations or GI flares. [facility] Medical History (Updated 05/03/25 @ 15:28 by Sandy Kirby CNP) Advised about management of weight Acid reflux Constipation Person consulting for explanation of examination or test finding Diverticulosis Colon polyps Hx of ulcer disease Renal artery stenosis Hypothalamic hypothyroidism Hypertension Surgical History Hx of colonoscopy Hx of lumpectomy Femoral hernia of right side History of tonsillectomy Family History Family/Other Brain cancer Social History Household Members: None Housing: House Are you a primary rn complex care to a significant other at home: No Do you presently have visiting nurse or other home services: No Alcohol intake: current Alcohol intake frequency: holidays/special occasions only Patient Tobacco Use Status: Current everyday Tobacco user Tobacco use type: Cigarette Cigarette Packs Per Day: 1 e-Cigarette/Vaping Use: Never Used Second Hand Smoke Exposure: No Substance Use Type: Marijuana service: No Current occupational status: employed 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 Current occupational exposures/hazards: No Cognitive needs: No Hearing needs: Yes Vision needs: No Review of Systems Const Reports as per HPI ENT Reports as per HPI Card Reports as per HPI Resp Reports as per HPI GI Reports as per HPI Reports as per HPI Physical Exam Vital Signs: Last Vital Signs Pulse 64 05/03/25 12:51 BP 136/78 05/03/25 12:51 Pulse Ox 95 05/03/25 12:51 Oxygen Delivery Method Room Air 05/03/25 12:51 BMI result Body Mass Index 19.0 Const General: healthy appearing, no acute distress and well developed Nutritional Appearance: average body habitus Orientation/consciousness: patient oriented x3 HEENT Head: Yes normal to inspection, Yes normocephalic and Yes atraumatic Face and sinus: Yes normal facial exam Eyes General: appearance normal, both eyes and all related structures Neck Neck: Yes normal visual inspection Resp Effort & Inspection: normal respiratory effort, able to speak in complete sentences, respiratory distress, no tracheal deviation and symmetric chest movement Cardio Jugular venous distension: no JVD GI Inspection: Yes normal to inspection and No distended Palpation (GI): Soft to palpation, not firm, nontender and No hepatosplenomegaly present Auscultation: normal bowel sounds Neuro General: patient oriented x3 Gait exam (Neuro): Normal gait present Psych Appearance: grossly normal Mental Status: mental status grossly normal Speech and movement: Normal speech and movement present Affect: normal affect Attitude: cooperative Thought process: Normal thought process present Thought content: Normal thought content present Insight: Good insight present (Psych) Judgement: Good judgement present (Psych) Assessment & Plan Assessment & Plan (1) Constipation: Code(s): K59.00 - Constipation, unspecified Category: Medical Qualifiers: Constipation type: unspecified constipation type Qualified Code(s): K59.00 - Constipation, unspecified Plan: Onset post colonoscopy, intermittent improvement with prn Miralax at low doses. Persistent suboptimal bowel habits and hard stools with underlying dietary, hydration, and lifestyle factors identified; colonoscopy reassuring for organic pathology. - Additional Testing: None indicated at this time. Monitor for red flag symptoms (hematochezia, severe abd pain, vomiting, obstipation, further weight loss). - Medications: - Initiate Miralax 17g (1 capful) po qd or prn per response?educate on correct dosing. Declined Rx per patient request - Docusate sodium 100mg po qhs prn for hard stools. Rx provided; instruct on OTC purchase eligibility, insurance/FSA card usage. - Lifestyle Recommendations: - Strongly reinforce daily dietary fiber intake: incorporate fresh or frozen fruits, vegetables, legumes, whole grains. Consider meal services (e.g., Meals on Wheels, community resources) to improve access/variety. - Maintain/increase hydration throughout the day. - Resume/increase daily movement as tolerated (encourage regular yard work, brief walks). - Provided education on regular bowel habits and triggers for follow-up. - Follow-Up Plan: - Reassess in 3 months (August) after cataract surgeries completed. Sooner if worsening symptoms, red flags, or continued inadequate response. (2) Acid reflux: Code(s): K21.9 - Gastro-esophageal reflux disease without esophagitis Category: Medical Qualifiers: Esophagitis presence: esophagitis presence not specified Qualified Code(s): K21.9 - Gastro-esophageal reflux disease without esophagitis Plan: Stable on omeprazole prn (now approx weekly); no recent heartburn or dysphagia, but at risk given history. Decreased dosing may jeopardize mucosal protection (hx ulcer, stricture). No recent EGD (>15 yrs ago). Additional Testing: - No immediate need for EGD unless symptoms recur or worsen; upper GI series offered if further diagnostic clarification needed. Medications: - Resume omeprazole 20mg po qd or qod (more consistent dosing than current once weekly) to maintain remission and prevent complications. Discussed long-term PPI use risks/benefits, specifically in context of prior chemotherapy/hormone therapy and bone density loss. Lifestyle Recommendations: - Continue dietary modifications as above; avoid typical GERD triggers as able. - Symptom diary to monitor any recurrence of reflux, dysphagia. Referrals / Coordination of Care: - Consider GI imaging/specialty referral if new or worsening symptoms. Follow-Up Plan: - Monitor for reflux recurrence. Review at next GI f/u unless interim symptoms. (3) Advised about management of weight: Code(s): Z78.9 - Other specified health status Category: Medical Plan: Stable ~93 lbs, baseline 97?98 lbs. No new rapid weight loss, likely multifactorial (dietary, psychosocial). Thyroid wnl, no evidence of GI malabsorption/malignancy. Additional Testing: None, unless further drawdown >5% over 6?12 mo. Lifestyle Recommendations: - Encourage structured meals; discuss nutrition support if inadequate oral intake persists. - Weight monitoring at home. Follow-Up Plan: - Reassess in 3 mo or sooner with further wt drop. Plan Follow-up 3 months or sooner as needed Time: I spent a total of 40 minutes on the date of encounter which includes: Preparing to see the patient (reviewed previous documentation, test results and medical history) Performing a medically appropriate exam and/or evaluation Ordering medications, tests, and procedures Documenting clinical information in the health record Medications: New docusate sodium Take one tablet at bedtime as needed 100 mg PO BEDTIME PRN 90 caps 1RF constipation Coding Level of Care Code Established Pt Est Pt Level 5 (88423) Patient Type Established Diagnoses Constipation, unspecified constipation type K59.00 Constipation type: unspecified constipation type Gastroesophageal reflux disease, unspecified whether esophagitis present K21.9 Esophagitis presence: esophagitis presence not specified Advised about management of weight Z78.9
[2025-05-03 12:51] VITALS: BP 136/78; PULSE 64; O2SAT 95; BMI 19.0
--- OUTSIDE RECORDS SUMMARY | 2025-05-03 13:54 | XMS_ITS | Clinical Summary ---
Author Organization [facility] Address 100 [facility] [address] [place] [address] Phone Care Team Providers Care Computer Engineering Technician Name Role Phone Sukh Patel NP Primary Care Provider [phone] Allergies Active Allergy Reactions Criticality Noted Date Comments Citalopram 07/01/2017 Penicillin V Other (see comments) 07/01/2017 Varenicline Other (see comments) 07/01/2017 Medications Probiotic Product (PROBIOTIC-10 PO) Take 1 capsule by mouth 1 (one) time each day Active Evening [facility] Oil 500 MG capsule Take 1 capsule [...] Hypertension 02/08/2021 Benign essential hypertension 02/06/2021 Tobacco use disorder 02/06/2021 Family History Medical History Relation Comments [...] patient's age to complete this topic Insurance [facility] PPO Blue([id number]) [place] [address] [place] [address] PPO Blue([id number]) Care Teams Computer Engineering Technician Relationship Specialty Start Date End Date Sukh Patel NP [address] [place] [address] PCP - General 08/14/20
--- OUTSIDE RECORDS SUMMARY | 2025-05-03 13:54 | XMS_ITS | Clinical Summary ---
Author Organization [facility] Address [address] [place] [address] Care Team Providers Care Continuous Pillowcase Cutter Name Role Phone Sukh Patel Primary Care Provider [phone] Allergies Active Allergy Reactions Criticality Noted Date [...] age to complete this topic Care Teams Continuous Pillowcase Cutter Relationship Specialty Start Date End Date Sukh Patel [address] [facility] [place] [address] PCP - General 07/01/17
--- OUTSIDE RECORDS SUMMARY | 2025-05-03 13:55 | XMS_ITS | Encounter Summary ---
Author Organization [facility] Address [address] [facility] [address] [facility] [address] [place] [address] Phone Care Team Providers Care Food Sales Clerk Name Role Phone Sukh Patel NP Primary Care Provider [phone] Encounter Details Date Type Department Care Team (Late st Contact Info) Description 03/06/2022 Telephone [facility] [address] [place] [address] Waqas Brasher MD Social History [...] for amlodipine 5 mg sent to [facility]. She has called several times and hasn't been able to get it filled. Please advise Thank you documented in this encounter Plan of Treatment Not on file documented as of this encounter Visit Diagnoses Not on filedocumented in this encounter Care Teams Food Sales Clerk Relationship Specialty Start Date End Date Sukh Patel NP [address] [place] [id number] PCP - General 08/14/20 documented as of this encounter
--- OUTSIDE RECORDS SUMMARY | 2025-05-03 13:55 | XMS_ITS | Clinical Summary ---
Author Organization [facility] [address] [place] [address] [place] [address] Phone Care Team Providers Care Country Printer Name Role Phone Sukh Patel NP Primary Care Provider [phone] Encounters Date Type Department Care Team Description 04/18/2025 10:16 AM EDT - 04/18/2025 11:59 PM EDT Hospital Encounter Radiology Department [address] [phone] Encounter for screening mammogram for breast cancer Discharge Disposition: Home or Self Care from Last 3 Months Surgical History Surgery Date Site/Laterality Comments COLONOSCOPY 02/03/09 PROCEDURE: HISTORICAL COLONOSCOPY; COMMENT: adenomas and diverticulosis; repeat in five years TONSILLECTOMY 1970 PROCEDURE: HISTORICAL TONSILLECTOMY COLONOSCOPY 2017 PROCEDURE: HISTORICAL [...] rism, cig Mother (Age 77) uncertain whether [place] or CVA Other Sister (Age 62) [place] Social History Tobacco Use Types Packs/Day Years Used Date Smoking Tobacco: Every Day Cigarettes Smokeless Tobacco: Never Alcohol Use Standard Drinks/Week Comments Yes 0 (1 standard drink = 0.6 oz pur e alcohol) Comments No Sex and Gender Information Value Date Recorded Sex Assigned at Not on file Legal Sex Female 8:36 PM EST Gender Identity Not on file Sexual Orientation Not on file Obstetrics History Para Term AB IAB SAB Ectopic Multiple Livin g Live Births 0 0 0 0 Last Filed Vital Signs Vital Sign Reading [...] Care Team (Late st Contact Info) Description 07/04/2025 11:15 AM EST Office Visit General Surgery - [address] [place] [address] Marco Antonio Hassan MD [address] [place] [phone] Health Maintenance Due Date Last Done Comments Colorectal Cancer Screening: Colonoscopy 1954 Pneumococcal Vaccine: 50+ Years (1 of 2 - PCV) 1973 Cholesterol Screening (Lipid Panel) 07/13/2022 Falls Risk Assessment 07/13/2022 Hepatitis C Screening 07/13/2022 Hypertension/CHF/CAD Annual BMP Blood Test 07/13/2022 Medicare Annual Wellness Visit 07/13/2022 Osteoporosis Screening (Bone Density Screening) 07/13/2022 Social Influencers of Health Screening 07/13/2022 Depression Screening 08/04/2024 Zoster Vaccines (2 of 2) 02/21/2025 12/27/2024 Influenza Vaccine (#1) 2025 DTaP,Tdap,and Td Vaccines (4 - Td or Tdap) 11/28/2026 11/28/2016, 08/04/2015, 03/13/2005 Breast Cancer Screening 04/18/2027 04/18/20 25, 04/02/2024, 04/02/2024, Additional history exists RSV Immunization Adult Patients (1 - 1-dose 75+ series) 2029 COVID-19 Vaccine Completed 12/27/2024, 01/2024, 05/31/2023, Additional history exists HIB Vaccines Aged Out No longer eligi [...] Procedure Name Priority Date/Time Associated Diagnosis Comments MG MAMMO DIGITAL SCREENING W MALIK BILAT Routine 04/18/2025 10:44 AM EDT Encounter for screening mammogram for breast cancer from Last 3 Months Results * MG Mammo Digital Screening w Malik bilat (04/18/2025 10:44 AM EDT) Anatomical Region Laterality Modality Breast Bilateral Mammography 04/19/2025 7:19 PM EDT Impressions 04/19/2025 7:21 PM EDT No mammographic evidence of malignancy. BREAST DENSITY: C - The breasts are heterogeneously dense which may obscure small masses. BI-RADS CATEGORY: 2 - BENIGN RECOMMENDATION: Screening bilateral mammogram is recommended in 1 year. MAMMO LOCATION: [facility], [address] [place] [address], [id number], . -------- FINAL REPORT -------- Dictated By: Khadijah Lloyd Dictated Date: 04/19/2025 19:19 ET Assigned Physician: Khadijah Lloyd Reviewed and Electronically Signed By: Khadijah Lloyd Signed Date: 04/19/2025 19:21 ET Workstation ID: [id number] Transcribed By: Self Edit Transcribed Date: 04/19/2025 19:19 ET Narrative 04/19/2025 7:21 PM EDT EXAM: Screening Mammogram CLINICAL: 69 years old, Female, routine annual exam. History of right breast cancer status post lumpectomy in 2017. Also, status post radiation therapy. COMPARISON: 04/02/2024 and as far back as 03/19/2021 TECHNIQUE: Bilateral MLO and CC views were obtained digitally with 3-D mammogram (digital breast tomosynthesis). Computer-aided detection was utilized in evaluation of this exam (CAD). FINDINGS: Lumpectomy changes with surgical clips in the upper outer right breast are not significantly changed. Surgical clips again noted in the right axillary region. No new suspicious mass, architectural distortion, or suspicious calcifications. Procedure Note Khadijah Lloyd MD - 04/19/2025 EXAM: Screening Mammogram CLINICAL: 69 years old, Female, routine annual exam. History of rightbreast cancer status post lumpectomy in 2017. Also, status post radiationtherapy. COMPARISON: 04/02/2024 and as far back as 03/19/2021 TECHNIQUE: Bilateral MLO and CC views were obtained digitally with 3-Dmammogram (digital breast tomosynthesis). Computer-aided detection wasutilized in evaluation of this exam (CAD). FINDINGS: Lumpectomy changes with surgical clips in the upper outer right breast arenot significantly changed. Surgical clips again noted in the rightaxillary region. No new suspicious mass, architectural distortion, orsuspicious calcifications. IMPRESSION: No mammographic evidence of malignancy. BREAST DENSITY: C - The breasts are heterogeneously dense which mayobscure small masses. BI-RADS CATEGORY: 2 - BENIGN RECOMMENDATION: Screening bilateral mammogram is recommended in 1 year. MAMMO LOCATION: [facility], [address] [place] [address], [address], . -------- FINAL REPORT -------- Dictated By: Khadijah Lloyd Dictated Date: 04/19/2025 19:19 ET Assigned Physician: Khadijah Lloyd Reviewed and Electronically Signed By: Khadijah Lloyd Signed Date: 04/19/2025 19:21 ET Workstation ID: [id number] Transcribed By: Self Edit Transcribed Date: 04/19/2025 19:19 ET us Sukh Patel NP IMG BI PROCEDURES Final Resu lt from Last 3 Months Insurance BL[employer] - [place] MEDICARE ADVANTAGE Care Teams Country Printer Relationship Specialty Start Date End Date Sukh Patel NP [address] [place], [place] PCP - General 07/01/17
== END 2025-05-03 14:03 | disposition home or self-care (01) ==
LOC: HO.HGI 12:49
PROVIDERS: PCP Nurse Practitioner Family; Visit Provider Nurse Practitioner Family
DX: K59.00 Constipation, unspecified (principal); K21.9 Gastro-esophageal reflux disease without esophagitis; Z78.9 Other specified health status
CPT/HCPCS: 99215

== ENCOUNTER → 2025-05-03 12:48 | Outpatient (BNVA) | payer MEDICARE, MEDICAID, SELFPAY | PROVIDERS: PCP Nurse Practitioner Family; Visit Provider Nurse Practitioner Family | DX: K21.9 Gastro-esophageal reflux disease without esophagitis (principal); K59.00 Constipation, unspecified | CPT/HCPCS: 99212 ==

== ENCOUNTER 2025-05-05 10:50 | Outpatient (REF) | payer MEDICARE, MEDICAID, SELFPAY ==
--- OUTSIDE RECORDS SUMMARY | 2025-05-05 12:46 | XMS_ITS | Clinical Summary ---
Author Organization [facility] Address [address] [place] [address] Care Team Providers Care Hand Clerical Verifier Name Role Phone Sukh Patel Primary Care Provider [phone] Allergies Active Allergy Reactions Criticality Noted Date [...] age to complete this topic Care Teams Hand Clerical Verifier Relationship Specialty Start Date End Date Sukh Patel [address] [place] [facility] [address] PCP - General 07/01/17
--- OUTSIDE RECORDS SUMMARY | 2025-05-05 12:47 | XMS_ITS | Encounter Summary ---
Author Organization [facility] Address [address] [facility] [address] [facility] [address] [place] [address] Phone Care Team Providers Care Supervisor Electronics Processing Name Role Phone Sukh Patel NP Primary Care Provider Encounter Details Date Type Department Care Team (Late st Contact Info) Description 03/06/2022 Telephone [facility] [address] [facility] [facility] [place] [address] Waqas Brasher MD Social History [...] refill for amlodipine 5 mg sent to [facility] on [facility]. She has called several times and hasn't been able to get it filled. Please advise Thank you documented in this encounter Plan of Treatment Not on file documented as of this encounter Visit Diagnoses Not on filedocumented in this encounter Care Teams Supervisor Electronics Processing Relationship Specialty Start Date End Date Sukh Patel NP [address] [place] [address] PCP - General 08/14/20 documented as of this encounter
--- OUTSIDE RECORDS SUMMARY | 2025-05-05 12:47 | XMS_ITS | Clinical Summary ---
Author Organization [facility] [address] [place] [address] [place] [address] Phone Care Team Providers Care Meter Record Clerk Name Role Phone Sukh Patel NP Primary Care Provider Encounters Date Type Department Care Team Description 04/18/2025 10:16 AM EDT - 04/18/2025 11:59 PM EDT Hospital Encounter Radiology Department [address] [phone] Encounter for screening mammogram for breast cancer [...] rism, cig Mother (Age 77) uncertain whether PR or CVA Other Sister (Age 62) PR Social History Tobacco Use Types Packs/Day Years [...] AM EST Office Visit General Surgery - [address] [place] [address] Marco Antonio Hassan MD [address] [place] [phone] Health Maintenance Due Date Last Done [...] is recommended in 1 year. MAMMO LOCATION: [facility], [address] [place] [address], [address], . -------- FINAL REPORT -------- Dictated By: Khadijah Lloyd Dictated Date: 04/19/2025 19:19 ET Assigned Physician: Khadijah Lloyd Reviewed and Electronically Signed By: Khadijah Lloyd Signed Date: 04/19/2025 19:21 ET Workstation ID: [id number] Transcribed By: Self Edit Transcribed Date: 04/19/2025 [...] is recommended in 1 year. MAMMO LOCATION: [facility], [address] [place] [address], [address], . -------- FINAL REPORT -------- Dictated By: Khadijah Lloyd Dictated Date: 04/19/2025 19:19 ET Assigned Physician: Khadijah Lloyd Reviewed and Electronically Signed By: Khadijah Lloyd Signed Date: 04/19/2025 19:21 ET Workstation ID: [id number] Transcribed By: Self Edit Transcribed Date: 04/19/2025 19:19 ET us Sukh Patel NP IMG BI PROCEDURES Final Resu lt from Last 3 Months Insurance [place] - [place] MEDICARE ADVANTAGE Care Teams Meter Record Clerk Relationship Specialty Start Date End Date Sukh Patel NP [address] [place], [place] PCP - General 07/01/17
--- OUTSIDE RECORDS SUMMARY | 2025-05-05 12:47 | XMS_ITS | Clinical Summary ---
Author Organization [facility] Address 100 [facility] [address] [place] [address] Phone Care Team Providers Care Pet Feeder Name Role Phone Sukh Patel NP Primary Care Provider [phone] Allergies Active Allergy Reactions Criticality Noted Date Comments Citalopram 07/01/2017 Penicillin V Other (see comments) 07/01/2017 Varenicline Other (see comments) 07/01/2017 Medications Probiotic Product (PROBIOTIC-10 PO) Take 1 capsule by mouth 1 (one) time each day Active Evening [place] Oil 500 MG capsule Take 1 capsule [...] age to complete this topic Insurance [facility] PPO Blue([id number]) [place] [address] [address] PPO Blue([id number]) Care Teams Pet Feeder Relationship Specialty Start Date End Date Sukh Patel NP [address] [place] [address] PCP - General 08/14/20
[2025-05-05 13:34] LABS: MANUAL DIFF FLAG NO
[2025-05-05 13:39] LABS: Hematocrit 39.9 % (37.0-47.0); Hemoglobin 13.5 g/dl (12.0-16.0); Imm Gran Abs Auto 0.02 X10*3/uL (0.00-0.03); Imm Gran Pct Auto 0.3 % (0.0-0.4); Lymphocytes Absolute Auto 2.2 X10*3/uL (1.2-4.9); Mean Corpuscular HGB Conc 33.8 g/dl (31.0-35.0); Mean Corpuscular Hemoglobin 30.8 pg (27.0-33.0); Mean Corpuscular Volume 91.1 fL (80.0-98.0); NRBC Abs Auto 0.000 X10*3/uL (0.0-0.012); NRBC Pct Auto 0.0 /100WBC (0.0-0.2); Platelet Count 322 X10*3/uL (160-400); Red Blood Count 4.38 X10*6/uL (4.20-5.50); White Blood Count 6.1 X10*3/uL (4.8-10.8)
[2025-05-05 13:57] LABS: Alanine Aminotransferase 11 U/L (0-31); Albumin Level 4.3 g/dL (3.5-5.0); Alkaline Phosphatase 80 U/L (39-117); Anion Gap 10 (12-20); Aspartate Amino Transferase 20 U/L (5-31); Blood Urea Nitrogen 14 mg/dL (9-16); Calcium 9.7 mg/dL (8.4-10.2); Carbon Dioxide 27 mmol/L (22-29); Chloride 107 mmol/L (96-108); Cholesterol 243 mg/dL (<200); Estimated Glomerular Filt Rate > 60; HDL Cholesterol 50 mg/dL (>40); Potassium 4.3 mmol/L (3.3-5.1); Sodium 140 mmol/L (135-145); Total Protein 6.8 g/dL (6.5-8.0); Triglycerides 87 mg/dL (<150)
[2025-05-05 14:37] LABS: Appearance Urine Clear; Glucose Urine UA Negative (Negative); PH 5.5 (5.0-9.0); Specific Gravity - Urine 1.010 (1.005-1.025); UMIC TRIGGER UACC YES
[2025-05-05 14:40] LABS: Free T4 (Free Thyroxine) 1.06 ng/dL (0.71-1.85)
[2025-05-05 15:31] LABS: Total Protein Urine Random < 7 mg/dL (<12)
== END 2025-05-05 10:51 | disposition home or self-care (01) ==
LOC: HO.HKASLDS 10:50
PROVIDERS: PCP Nurse Practitioner Family; Visit Provider Internal Medicine Nephrology
DX: I15.0 Renovascular hypertension (principal); F43.10 Post-traumatic stress disorder, unspecified; F41.9 Anxiety disorder, unspecified; F32.A Depression, unspecified; M81.0 Age-related osteoporosis without current pathological fracture
CPT/HCPCS: 36415; 80053; 80061; 81001; 81003; 82306; 82570; 84156; 84439; 84443; 85025

== ENCOUNTER 2025-05-17 10:29 | Outpatient (AMB) | payer MEDICARE, SELFPAY ==
--- NOTE | 2025-05-17 10:37 | HO.NEPHOV ---
Vital Signs 05/17/25 10:39 Height 4 ft 10 in Weight 91 lb 6 oz BMI 19.1 BP 124/60 Blood Pressure Location Lt brachial Position Sitting Pulse 61 Pulse Source Pulse Oximeter Pulse Oximetry (%) 95 Oxygen Delivery Method Room Air Intake Visit Reasons: 6 mnts Release Of Information Specialist Required: No Accompanied by: Self / Same As Patient Allergies varenicline (From CHANTIX) Allergy (Severe, Verified 05/17/25 10:38) HIVES erythromycin base (ERYTHROMYCIN BASE) Allergy (Intermediate, Verified 05/17/25 10:38) RASH Macrolide Antibiotics (MACROLIDE ANTIBIOTICS) Allergy (Intermediate, Verified 05/17/25 10:38) RASH Sulfa (Sulfonamide Antibiotics) (SULFA (SULFONAMIDE ANTIBIOTICS)) Allergy (Intermediate, Verified 05/17/25 10:38) RASH amoxicillin Allergy (Unknown, Verified 05/17/25 10:38) Unknown barium sulfate Allergy (Unknown, Verified 05/17/25 10:38) Hives penicillin V Allergy (Unknown, Verified 05/17/25 10:38) Rash bupropion (From Wellbutrin) Adverse Reaction (Intermediate, Verified 05/17/25 10:38) Tinnitus sertraline (From Zoloft) Adverse Reaction (Mild, Verified 05/17/25 10:38) Insomnia citalopram Adverse Reaction (Unknown, Verified 05/17/25 10:38) Burning sensation all over body trazodone Adverse Reaction (Unknown, Verified 05/17/25 10:38) Vertigo Erythromycin Allergy (Unknown, Uncoded 04/11/25 11:32) Unsure Sulfa drugs Allergy (Unknown, Uncoded 04/11/25 11:32) Unsure sertraline Adverse Reaction (Uncoded 04/11/25 11:32) Insomnia HPI Comments Details: Fabiola was seen in follow-up of her hypertension. She has history of breast cancer and had undergone lumpectomy radiation and chemotherapy. Her blood pressure had gone up during her chemotherapy time. She does not have any chest pain, shortness of breath, proximal nocturnal dyspnea, orthopnea, pedal edema. She does not take excess sodium in the diet or nonsteroidal anti-inflammatories. She has no orthostatic symptoms. She maintains compliance with her medications. [facility] Medical History (Updated 05/03/25 @ 15:28 by Sandy Kirby CNP) Advised about management of weight Acid reflux Constipation Person consulting for explanation of examination or test finding Diverticulosis Colon polyps Hx of ulcer disease Renal artery stenosis Hypothalamic hypothyroidism Hypertension Surgical History Hx of colonoscopy Hx of lumpectomy Femoral hernia of right side History of tonsillectomy Family History Family/Other Brain cancer Social History Household Members: None Housing: House Are you a primary home care associate to a significant other at home: No Do you presently have visiting nurse or other home services: No Alcohol intake: current Alcohol intake frequency: holidays/special occasions only Patient Tobacco Use Status: Current everyday Tobacco user Tobacco use type: Cigarette Cigarette Packs Per Day: 1 e-Cigarette/Vaping Use: Never Used Second Hand Smoke Exposure: No Substance Use Type: Marijuana service: No Current occupational status: employed 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 Current occupational exposures/hazards: No Cognitive needs: No Hearing needs: Yes Vision needs: No Review of Systems Const All systems reviewed & are unremarkable except as noted in HPI and below Physical Exam Vital Signs: Last Vital Signs Pulse 61 05/17/25 10:39 BP 144/80 H 05/17/25 10:39 Pulse Ox 95 05/17/25 10:39 Oxygen Delivery Method Room Air 05/17/25 10:39 BMI result Body Mass Index 19.1 Const General: comfortable and no acute distress Orientation/consciousness: patient oriented x3 HEENT Head: Yes normocephalic Mouth: Normal oral and palatal mucosa present Eyes EOM: EOMs intact bilaterally Neck Neck: Yes supple Resp Auscultation: clear to auscultation bilaterally Cardio Jugular venous distension: no JVD Rate: regular rate GI Palpation (GI): Soft to palpation Auscultation: normal bowel sounds General: Yes no CVA tenderness Back/Spine/Pelvis Back: no CVA tenderness Skin General skin exam: no rashes or lesions noted Neuro General: patient oriented x3 and moves all extremities Extrem General: Yes no pedal edema Results Reviewed Nephrology Results: Hgb, (12.0-16.0) 13.5 g/dl 05/05/25 WBC, (4.8-10.8) 6.1 X10*3/uL 05/05/25 Plt Count, (160-400) 322 X10*3/uL Δ 05/05/25 Sodium, (135-145) 140 mmol/L 05/05/25 Potassium, (3.3-5.1) 4.3 mmol/L 05/05/25 Chloride, (96-108) 107 mmol/L 05/05/25 Carbon Dioxide, (22-29) 27 mmol/L 05/05/25 BUN, (9-16) 14 mg/dL 05/05/25 Creatinine, (0.5-1.4) 0.84 mg/dL 05/05/25 Calcium, (8.4-10.2) 9.7 mg/dL 05/05/25 Urine Protein, (Neg-Trace) Negative mg/dL 05/05/25 Urine Creatinine 50.79 mg/dL 05/05/25 Protein/Creatinin Ratio TNP 05/05/25 Assessment & Plan Assessment & Plan (1) Hypertension: Code(s): I10 - Essential (primary) hypertension Category: Medical Qualifiers: Hypertension type: renovascular hypertension Qualified Code(s): I15.0 - Renovascular hypertension Plan Fabiola has longstanding hypertension. She maintains a low-sodium diet. 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 I asked her to take ACEI and beta fan AM and Amlodipine at night. I plan to arrange Doppler of renal arteries with time to monitor the caliber of her renal arteries. Her serum potassium and renal functions had been stable. She avoids nonsteroidal anti-inflammatories .Her volume status was optimal. I did not make any medication changes today. All her questions were answered. Follow-up appointment was given Orders: Orders Protein Creatinine Ratio, Ur 8 Months I15.0 - Renovascular hypertension Creatinine 8 Months I15.0 - Renovascular hypertension Blood Urea Nitrogen 8 Months I15.0 - Renovascular hypertension Electrolytes 8 Months I15.0 - Renovascular hypertension Coding Level of Care Code Est Pt Level 4 (73025) Diagnoses Renovascular hypertension I15.0 Hypertension type: renovascular hypertension
[2025-05-17 10:39] VITALS: BP 124/60; PULSE 61; O2SAT 95; BMI 19.1
--- OUTSIDE RECORDS SUMMARY | 2025-05-17 12:22 | XMS_ITS | Encounter Summary ---
Author Organization [facility] Address [address] [facility] [address] [facility] [address] [place] [address] Phone Care Team Providers Care Stem Cleaning Machine Feeder Name Role Phone Sukh Patel NP Primary Care Provider [phone] Encounter Details Date Type Department Care Team (Late st Contact Info) Description 03/06/2022 Telephone [facility] [address] [facility] [address] [address] [place] [address] Waqas Brasher MD Social History [...] refill for amlodipine 5 mg sent to [facility]. She has called several times and hasn't been able to get it filled. Please advise Thank you documented in this encounter Plan of Treatment Not on file documented as of this encounter Visit Diagnoses Not on filedocumented in this encounter Care Teams Stem Cleaning Machine Feeder Relationship Specialty Start Date End Date Sukh Patel NP [address] [place] [id number] PCP - General 08/14/20 documented as of this encounter
--- OUTSIDE RECORDS SUMMARY | 2025-05-17 12:22 | XMS_ITS | Clinical Summary ---
Author Organization [facility] Address 100 [facility] [address] [place] [address] Phone Care Team Providers Care Intellectual Property Legal Assistant Name Role Phone Sukh Patel NP Primary Care Provider [phone] Allergies Active Allergy Reactions Criticality Noted Date Comments Citalopram 07/01/2017 Penicillin V Other (see comments) 07/01/2017 Varenicline Other (see comments) 07/01/2017 Medications Probiotic Product (PROBIOTIC-10 PO) Take 1 capsule by mouth 1 (one) time each day Active Evening [place] Oil 500 MG capsule Take 1 capsule [...] patient's age to complete this topic Insurance [facility] PPO Blue([id number]) [place] [address] PPO Blue([id number]) Care Teams Intellectual Property Legal Assistant Relationship Specialty Start Date End Date Sukh Patel NP [address] [place] [address] PCP - General 08/14/20
--- OUTSIDE RECORDS SUMMARY | 2025-05-17 12:22 | XMS_ITS | Clinical Summary ---
Author Organization [facility] [address] [place] [address] [place] [address] Phone Care Team Providers Care Forest Ranger Name Role Phone Sukh Patel NP Primary Care Provider [phone] Encounters Date Type Department Care Team Description 04/18/2025 10:16 AM EDT - 04/18/2025 11:59 PM EDT Hospital Encounter Radiology Department [address] [phone] Encounter for screening mammogram for breast cancer [...] rism, cig Mother (Age 77) uncertain whether [place] or CVA Other Sister (Age 62) NE Social History Tobacco Use Types Packs/Day Years [...] AM EST Office Visit General Surgery - [address] [place] [address] Marco Antonio Hassan MD [address] [place] [phone] Health Maintenance Due Date Last Done [...] is recommended in 1 year. MAMMO LOCATION: [facility], [address] [place] [address], [phone], . -------- FINAL REPORT -------- Dictated By: Khadijah Lloyd Dictated Date: 04/19/2025 19:19 ET Assigned Physician: Khadijah Lloyd Reviewed and Electronically Signed By: Khadijah Lloyd Signed Date: 04/19/2025 19:21 ET Workstation ID: [id number] Transcribed By: Self Edit Transcribed Date: 04/19/2025 [...] is recommended in 1 year. MAMMO LOCATION: [facility], [address] [place] [address], [address], . -------- FINAL REPORT -------- Dictated By: Khadijah Lloyd Dictated Date: 04/19/2025 19:19 ET Assigned Physician: Khadijah Lloyd Reviewed and Electronically Signed By: Khadijah Lloyd Signed Date: 04/19/2025 19:21 ET Workstation ID: [id number] Transcribed By: Self Edit Transcribed Date: 04/19/2025 19:19 ET us Sukh Patel NP IMG BI PROCEDURES Final Resu lt from Last 3 Months Insurance [employer] [employer] - [place] MEDICARE ADVANTAGE Care Teams Forest Ranger Relationship Specialty Start Date End Date Sukh Patel NP [address] [place], [place] PCP - General 07/01/17
--- OUTSIDE RECORDS SUMMARY | 2025-05-17 12:22 | XMS_ITS | Clinical Summary ---
Author Organization [facility] Address [address] [place] [address] Care Team Providers Care Roller Coaster Engineer Name Role Phone Sukh Patel Primary Care Provider [phone] Allergies Active Allergy Reactions Criticality Noted Date [...] age to complete this topic Care Teams Roller Coaster Engineer Relationship Specialty Start Date End Date Sukh Patel [address] [facility] [place] [address] PCP - General 07/01/17
== END 2025-05-17 11:06 | disposition home or self-care (01) ==
LOC: HO.HKAS 10:30
PROVIDERS: PCP Nurse Practitioner Family; Visit Provider Internal Medicine Nephrology
DX: I15.0 Renovascular hypertension (principal)
CPT/HCPCS: 99214

== ENCOUNTER → 2025-05-17 10:29 | Outpatient (BNVA) | payer MEDICARE, SELFPAY | PROVIDERS: PCP Nurse Practitioner Family; Visit Provider Internal Medicine Nephrology | DX: I15.0 Renovascular hypertension (principal); I70.1 Atherosclerosis of renal artery | CPT/HCPCS: 99212 ==

== ENCOUNTER 2025-05-24 09:58 | Outpatient (AMB) | payer MEDICARE, MEDICAID, SELFPAY ==
--- NOTE | 2025-05-24 10:38 | AM.OFFVISNUR ---
Intake Visit Reasons: Evenity #1 Allergies varenicline (From CHANTIX) Allergy (Severe, Verified 05/17/25 10:38) HIVES erythromycin base (ERYTHROMYCIN BASE) Allergy (Intermediate, Verified 05/17/25 10:38) RASH Macrolide Antibiotics (MACROLIDE ANTIBIOTICS) Allergy (Intermediate, Verified 05/17/25 10:38) RASH Sulfa (Sulfonamide Antibiotics) (SULFA (SULFONAMIDE ANTIBIOTICS)) Allergy (Intermediate, Verified 05/17/25 10:38) RASH amoxicillin Allergy (Unknown, Verified 05/17/25 10:38) Unknown barium sulfate Allergy (Unknown, Verified 05/17/25 10:38) Hives penicillin V Allergy (Unknown, Verified 05/17/25 10:38) Rash bupropion (From Wellbutrin) Adverse Reaction (Intermediate, Verified 05/17/25 10:38) Tinnitus sertraline (From Zoloft) Adverse Reaction (Mild, Verified 05/17/25 10:38) Insomnia citalopram Adverse Reaction (Unknown, Verified 05/17/25 10:38) Burning sensation all over body trazodone Adverse Reaction (Unknown, Verified 05/17/25 10:38) Vertigo Erythromycin Allergy (Unknown, Uncoded 04/11/25 11:32) Unsure Sulfa drugs Allergy (Unknown, Uncoded 04/11/25 11:32) Unsure sertraline Adverse Reaction (Uncoded 04/11/25 11:32) Insomnia Office Meds romosozumab-aqqg 210 mg/2.34 mL(105 mg/1.17 mL x2)subcutaneous syringe Performing Provider: Andrea Carballo MD Performing [facility] Administered by: Cher Lorenzana RN on 05/24/25 10:38 Dose Route Admin Location Dispensed Lot Number Expiration Date NDC Shank Cementer Hand 210 mg subcut bilateral upper arms 2.34 mL [id number] 07/03/27 88995-799-79 AMGEN Total Dispensed Waste 2.34 mL 0 % Comments: Pt tolerated injection well. Pt was advised that given this is her first injection we will have her stay for 15 minutes following injection per protocol. I advised pt that she will remain on vitamin D and calcium while on this medication and to let her dentist know she is on this medication. I advised her to call the office if she experiences any adverse reactions or side effects such as site reactions or joint pains. All questions were answered and pt is agreeable to plan. Pt stayed for 15 minutes following injection and no adverse reactions were observed or reported. Pt scheduled in 4 weeks for next appt. No further questions at this time. Assessment & Plan Assessment & Plan Orders: Orders AMB Romosozumab Injection Patient Supplied Today M81.0 - Age-related osteoporosis without current pathological fracture Coding
--- OUTSIDE RECORDS SUMMARY | 2025-05-24 11:31 | XMS_ITS | Clinical Summary ---
Author Organization [facility] Address [address] [place] [address] Care Team Providers Care Side Hemmer Name Role Phone Sukh Patel Primary Care Provider Allergies Active Allergy Reactions Criticality Noted Date [...] age to complete this topic Care Teams Side Hemmer Relationship Specialty Start Date End Date Sukh Patel [address] [place] [facility] [address] PCP - General 07/01/17
--- OUTSIDE RECORDS SUMMARY | 2025-05-24 11:31 | XMS_ITS | Clinical Summary ---
Author Organization [facility] Address 100 [facility] [address] [place] [address] Phone Care Team Providers Care Fisher Sponge Hooking Name Role Phone Sukh Patel NP Primary Care Provider [phone] Allergies Active Allergy Reactions Criticality Noted Date Comments Citalopram 07/01/2017 Penicillin V Other (see comments) 07/01/2017 Varenicline Other (see comments) 07/01/2017 Medications Probiotic Product (PROBIOTIC-10 PO) Take 1 capsule by mouth 1 (one) time each day Active Evening [place] Oil 500 MG capsule Take 1 capsule [...] patient's age to complete this topic Insurance [facility] PPO Blue([id number]) [place] [address] PPO Blue([id number]) Care Teams Fisher Sponge Hooking Relationship Specialty Start Date End Date Sukh Patel NP [address] [place] [address] PCP - General 08/14/20
--- OUTSIDE RECORDS SUMMARY | 2025-05-24 11:31 | XMS_ITS | Encounter Summary ---
Author Organization [facility] Address [address] [facility] [address] [facility] 200 [place] [address] Phone Care Team Providers Care Veterinarian Poultry Name Role Phone Sukh Patel NP Primary Care Provider [phone] Encounter Details Date Type Department Care Team (Late st Contact Info) Description 03/06/2022 Telephone [facility] [address] [place] [address] Waqas Brasher MD Social History [...] refill for amlodipine 5 mg sent to [facility]. She has called several times and hasn't been able to get it filled. Please advise Thank you documented in this encounter Plan of Treatment Not on file documented as of this encounter Visit Diagnoses Not on filedocumented in this encounter Care Teams Veterinarian Poultry Relationship Specialty Start Date End Date Sukh Patel NP [address] [place] [address] PCP - General 08/14/20 documented as of this encounter
== END 2025-05-24 10:37 | disposition home or self-care (01) ==
LOC: HO.ENCR 09:58
PROVIDERS: PCP Nurse Practitioner Family; Visit Provider Internal Medicine Endocrinology, Diabetes & Metabolism
DX: M81.0 Age-related osteoporosis without current pathological fracture (principal)

== ENCOUNTER → 2025-05-24 09:58 | Outpatient (BNVA) | payer MEDICARE, MEDICAID, SELFPAY | PROVIDERS: PCP Nurse Practitioner Family; Visit Provider Internal Medicine Endocrinology, Diabetes & Metabolism | DX: M81.0 Age-related osteoporosis without current pathological fracture (principal) | CPT/HCPCS: 96372; J3111 ==

== ENCOUNTER 2025-06-02 09:24 | Outpatient (AMB) | payer MEDICARE, MEDICAID, SELFPAY ==
[2025-06-02 09:38] VITALS: BP 140/88; PULSE 66; RESP 16; O2SAT 95; BMI 19.4
--- NOTE | 2025-06-02 09:38 | A.OFFPC_ITS ---
Vital Signs 06/02/25 09:38 Height 4 ft 10 in Weight 93 lb BMI 19.4 BP 140/88 H Blood Pressure Location Lt brachial Position Sitting Respiration 16 Pulse 66 Pulse Source Pulse Oximeter Pulse Oximetry (%) 95 Oxygen Delivery Method Room Air Intake Visit Reasons: f/up prior cataract sx to be done 06/06 Tubing Machine Tender Required: No Accompanied by: Self / Same As Patient Allergies varenicline (From CHANTIX) Allergy (Severe, Verified 06/02/25 09:41) HIVES erythromycin base (ERYTHROMYCIN BASE) Allergy (Intermediate, Verified 06/02/25 09:41) RASH Macrolide Antibiotics (MACROLIDE ANTIBIOTICS) Allergy (Intermediate, Verified 06/02/25 09:41) RASH Sulfa (Sulfonamide Antibiotics) (SULFA (SULFONAMIDE ANTIBIOTICS)) Allergy (Intermediate, Verified 06/02/25 09:41) RASH amoxicillin Allergy (Unknown, Verified 06/02/25 09:41) Unknown barium sulfate Allergy (Unknown, Verified 06/02/25 09:41) Hives penicillin V Allergy (Unknown, Verified 06/02/25 09:41) Rash bupropion (From Wellbutrin) Adverse Reaction (Intermediate, Verified 06/02/25 09:41) Tinnitus sertraline (From Zoloft) Adverse Reaction (Mild, Verified 06/02/25 09:41) Insomnia citalopram Adverse Reaction (Unknown, Verified 06/02/25 09:41) Burning sensation all over body trazodone Adverse Reaction (Unknown, Verified 06/02/25 09:41) Vertigo Erythromycin Allergy (Unknown, Uncoded 04/11/25 11:32) Unsure Sulfa drugs Allergy (Unknown, Uncoded 04/11/25 11:32) Unsure sertraline Adverse Reaction (Uncoded 04/11/25 11:32) Insomnia Tobacco use date assessed: 06/02/25 Fall risk assessment: No Falls in past year Last assessed Fall Risk: 06/02/25 Dental Screening Dental Screen Date: 06/02/25 Did you have a dental visit in the last 12 months?: Yes Did you have a dental problem in the last 6 months where you did not have access to dental care?: No Was dental information given to patient?: Patient has dentist HPI f/up prior cataract sx to be done 06/06 HPI Details Chief Complaint Patient presents for preoperative clearance for cataract surgery. History of Present Illness The patient is a 69-year-old female presenting for preoperative clearance for cataract surgery. The surgery is planned for the right eye first, followed by the left eye. She denies any recent fever, chills, or other signs and symptoms of infection. PT IS CLEAR FOR SURGERY FROM MY STANDPOINT Social History Health Maintenance Review of Systems - Constitutional: Denies fever and chill s. - Infectious Disease: Denies signs and s ymptoms of infection. Physical Exam General: Cooperative, healthy appearing, comfortable, no acute distress and well developed Orientation: Patient oriented x3 Limitations: No limitations Head: Normal to inspection Ears: Hearing grossly normal bilaterally Nose: Normal external nose present Face and sinus: Normal facial exam Eyes: Appearance normal, both eyes and all related structures Neck: Normal visual inspection and Yes full ROM, no lymphadenopathy Respiratory: Slightly diminished bilaterally, able to speak in complete sentences Cardiovascular: Regular rate and rhythm. Normal S1 and S2 GI: Normal to inspection. Soft to palpation and nontender Skin: No rashes or lesions noted Neuro: Patient oriented x3 Extremities: Normal to inspection Results Plan 1. Preoperative Surgical Clearance The patient is cleared for cataract surgery. She denies any signs or symptoms of infection, and the physical exam revealed no signs of infection, with clear lungs and no lymphadenopathy. Discussion Notes I have cleared the patient for her upcoming cataract surgery. She denies any infectious symptoms, and the examination confirms no signs of infection. Patient Instructions [facility] Medical History Advised about management of weight Acid reflux Constipation Person consulting for explanation of examination or test finding Diverticulosis Colon polyps Hx of ulcer disease Renal artery stenosis Hypothalamic hypothyroidism Hypertension Surgical History Hx of colonoscopy Hx of lumpectomy Femoral hernia of right side History of tonsillectomy Family History Family/Other Brain cancer Social History Household Members: None Housing: House Are you a primary livestock caretaker to a significant other at home: No Do you presently have visiting nurse or other home services: No Alcohol intake: current Alcohol intake frequency: holidays/special occasions only Patient Tobacco Use Status: Current everyday Tobacco user Tobacco use type: Cigarette Cigarette Packs Per Day: 1 e-Cigarette/Vaping Use: Never Used Second Hand Smoke Exposure: No Substance Use Type: Marijuana service: No Current occupational status: employed 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 1. Little interest or pleasure in doing things: several days 2. Feeling down, depressed, or hopeless: several days 3. Trouble falling or staying asleep, or sleeping too much: several days 4. Feeling tired or having little energy: several days 5. Poor appetite or overeating: not at all 6. Feeling bad about yourself - or that you are a failure or have let yourself or your family down: not at all 7. Trouble concentrating on things, such as reading the newspaper or watching television: several days 8. Moving or speaking so slowly that other people could have noticed. Or the opposite - being so fidgety or restless that you have been moving around a lot more than usual: not at all 9. Thoughts that you would be better off or of hurting yourself in some way: several days Total score: 6 Depression Screening Interpretation: Negative Depression Screening Done: Yes 67358 - PHQ-9 Billing: Yes Source: Developed by Drs. Andrea Willis, Dayana Carter, Ata Perkins and colleagues, with an educational jessie from [employer]. Thrive Questionnaire Date Thrive assessed: 11/17/24 I am a: Patient What is your living situation today?: I have a steady place to live Within the past 12 months, did the food you bought not last and you didn't have the money to get more?: Sometimes True Within the past 12 months, did you worry whether your food would run out before you got money to buy more?: Sometimes True Do you have trouble paying for medicines?: Yes Do you have trouble getting transportation to medical appointments?: Yes Do you have trouble paying your heating and electricity bill?: No Do you have trouble taking care of your child, family member or friend?: No Do you have trouble with day-to-day activities such as bathing, preparing meals, shopping, managing finances, etc.?: Yes Are you currently unemployed and looking for a job?: No Are you interested in more education?: No Currently or been in a relationship where the following occur: No concerns reported THRIVE Score: 3 LELE-7 AMB Questionnaire LELE-7 Date LELE - 7 assessed: 06/02/25 Feeling nervous, anxious, or on edge: 1 = Several days Not being able to stop or control worryin = More than half the days Worrying too much about different things: 2 = More than half the days Trouble relaxin = More than half the days Being so restless that it is hard to sit still: 0 = Not at all Becoming easily annoyed or irritable: 1 = Several days Feeling afraid as if something awful might happen: 3 = Nearly every day Total LELE-7 score (0-4 normal; 5-9 mild; 10-14 moderate; 15-21 severe): 11 Source: Developed by Drs. Andrea Willis, Dayana Carter, Ata Perkins and colleagues, with an educational jessie from [employer]. Physical exam (Primary Care) Vital Signs: Last Vital Signs Pulse 66 06/02/25 09:38 Resp 16 06/02/25 09:38 BP 140/88 H 06/02/25 09:38 Pulse Ox 95 06/02/25 09:38 Oxygen Delivery Method Room Air 06/02/25 09:38 BMI result Body Mass Index 19.4 Tobacco/Smoking Status: Tobacco use Status Tobacco use date assessed 06/02/25 06/02/25 09:45 Patient Tobacco Use Status Current everyday Tobacco 06/02/25 09:40 Tobacco use type Cigarette 06/02/25 09:40 e-Cigarette/Vaping Use Never Used 06/02/25 09:40 PHQ-9: PHQ-9 Score PHQ-9: Total score 6 06/02/25 09:45 Depression Screening Interpretation: Negative Thrive Assessment: Date of Thrive Assessment Date Thrive assessed 11/17/24 06/02/25 09:40 Currently or been in a relationship where the following occur: No concerns reported Coding Level of Care Code Est Pt Prev Care >65y(33268) Diagnoses Pre-operative clearance Z01.818 Additional Codes PHQ-9 - 99776 - PHQ-9 Billing: Yes ([id number]) Assessment & Plan Assessment & Plan (1) Pre-operative clearance: Code(s): Z01.818 - Encounter for other preprocedural examination Category: Medical Plan . Orders: Orders Lipid Panel 2 Months E78.5 - Hyperlipidemia, unspecified Comprehensive [place]. Panel Fast 2 Months E78.5 - Hyperlipidemia, unspecified
--- OUTSIDE RECORDS SUMMARY | 2025-06-02 10:51 | XMS_ITS | Clinical Summary ---
Author Organization [facility] [address] [place] [address] [place] [address] Phone Care Team Providers Care Gas Examiner Name Role Phone Sukh Patel NP Primary Care Provider [phone] Encounters Date Type Department Care Team Description 04/18/2025 10:16 AM EDT - 04/18/2025 11:59 PM EDT Hospital Encounter Radiology Department [address] [phone] Encounter for screening mammogram for breast cancer [...] rism, cig Mother (Age 77) uncertain whether [place] or CVA Other Sister (Age 62) [place] Social History Tobacco Use Types Packs/Day Years [...] AM EST Office Visit General Surgery - [address] [place] [address] Marco Antonio Hassan MD [address] [place] [phone] Health Maintenance Due Date Last Done [...] is recommended in 1 year. MAMMO LOCATION: [facility], [address] [place] [address], [phone], . -------- FINAL REPORT -------- Dictated By: Khadijah Lloyd Dictated Date: 04/19/2025 19:19 ET Assigned Physician: Khadijah Lloyd Reviewed and Electronically Signed By: Khadijah Lloyd Signed Date: 04/19/2025 19:21 ET Workstation ID: [id number] Transcribed By: Self Edit Transcribed Date: 04/19/2025 [...] is recommended in 1 year. MAMMO LOCATION: [facility], [address] [place] [address], [phone], . -------- FINAL REPORT -------- Dictated By: Khadijah Lloyd Dictated Date: 04/19/2025 19:19 ET Assigned Physician: Khadijah Lloyd Reviewed and Electronically Signed By: Khadijah Lloyd Signed Date: 04/19/2025 19:21 ET Workstation ID: [id number] Transcribed By: Self Edit Transcribed Date: 04/19/2025 19:19 ET us Sukh Patel NP IMG BI PROCEDURES Final Resu lt from Last 3 Months Insurance [place] Care Teams Gas Examiner Relationship Specialty Start Date End Date Sukh Patel NP [address] [place], [place] PCP - General 07/01/17
--- OUTSIDE RECORDS SUMMARY | 2025-06-02 10:51 | XMS_ITS | Clinical Summary ---
Author Organization [facility] Address [address] [place] [address] Care Team Providers Care Machinist General Name Role Phone uSkh Patel Primary Care Provider [phone] Allergies Active Allergy Reactions Criticality Noted Date [...] age to complete this topic Care Teams Machinist General Relationship Specialty Start Date End Date Sukh Patel [address] [facility] [place] [address] PCP - General 07/01/17
== END 2025-06-02 13:52 | disposition home or self-care (01) ==
LOC: HO.HMCC 09:25
PROVIDERS: PCP Nurse Practitioner Family; Visit Provider Nurse Practitioner Family
DX: H26.9 Unspecified cataract (principal); Z01.818 Encounter for other preprocedural examination

== ENCOUNTER → 2025-06-02 09:24 | Outpatient (BNVA) | payer MEDICARE, MEDICAID, SELFPAY | PROVIDERS: PCP Nurse Practitioner Family; Visit Provider Nurse Practitioner Family | DX: Z01.818 Encounter for other preprocedural examination (principal); H26.9 Unspecified cataract; E78.5 Hyperlipidemia, unspecified | CPT/HCPCS: 96127; 99212 ==

== ENCOUNTER 2025-06-21 09:55 | Outpatient (AMB) | payer MEDICARE, MEDICAID, SELFPAY ==
--- NOTE | 2025-06-21 10:48 | AM.OFFVISNUR ---
Intake Visit Reasons: Evenity #2 Allergies varenicline (From CHANTIX) Allergy (Severe, Verified 06/02/25 09:41) HIVES erythromycin base (ERYTHROMYCIN BASE) Allergy (Intermediate, Verified 06/02/25 09:41) RASH Macrolide Antibiotics (MACROLIDE ANTIBIOTICS) Allergy (Intermediate, Verified 06/02/25 09:41) RASH Sulfa (Sulfonamide Antibiotics) (SULFA (SULFONAMIDE ANTIBIOTICS)) Allergy (Intermediate, Verified 06/02/25 09:41) RASH amoxicillin Allergy (Unknown, Verified 06/02/25 09:41) Unknown barium sulfate Allergy (Unknown, Verified 06/02/25 09:41) Hives penicillin V Allergy (Unknown, Verified 06/02/25 09:41) Rash bupropion (From Wellbutrin) Adverse Reaction (Intermediate, Verified 06/02/25 09:41) Tinnitus sertraline (From Zoloft) Adverse Reaction (Mild, Verified 06/02/25 09:41) Insomnia citalopram Adverse Reaction (Unknown, Verified 06/02/25 09:41) Burning sensation all over body trazodone Adverse Reaction (Unknown, Verified 06/02/25 09:41) Vertigo Erythromycin Allergy (Unknown, Uncoded 04/11/25 11:32) Unsure Sulfa drugs Allergy (Unknown, Uncoded 04/11/25 11:32) Unsure sertraline Adverse Reaction (Uncoded 04/11/25 11:32) Insomnia Office Meds romosozumab-aqqg 210 mg/2.34 mL(105 mg/1.17 mL x2)subcutaneous syringe Performing Provider: Andrea Carballo MD [place] [facility] Administered by: Cher Lorenzana RN on 06/21/25 10:48 Dose Route Admin Location Dispensed Lot Number Expiration Date NDC Sheet Catcher 210 mg subcut bilateral upper arms 2.34 mL [id number] 11/02/27 44786-844-13 AMGEN Total Dispensed Waste 2.34 mL 0 % Comments: Pt reported some redness and slight swelling at the injection site on her right arm that she stated resolved in a couple of days. No other adverse reactions reported from previous injection, Pt tolerated injection well. Pt scheduled in 4 weeks for next appt. No further questions at this time. Assessment & Plan Assessment & Plan Orders: Orders AMB Romosozumab Injection Patient Supplied Today M81.0 - Age-related osteoporosis without current pathological fracture Coding
== END 2025-06-21 10:25 | disposition home or self-care (01) ==
LOC: HO.ENCR 09:56
PROVIDERS: PCP Nurse Practitioner Family; Visit Provider Internal Medicine Endocrinology, Diabetes & Metabolism
DX: M81.0 Age-related osteoporosis without current pathological fracture (principal)

== ENCOUNTER → 2025-06-21 09:55 | Outpatient (BNVA) | payer MEDICARE, MEDICAID, SELFPAY | PROVIDERS: PCP Nurse Practitioner Family; Visit Provider Internal Medicine Endocrinology, Diabetes & Metabolism | DX: M81.0 Age-related osteoporosis without current pathological fracture (principal); Z79.69 Long term (current) use of other immunomodulators and immunosuppressants | CPT/HCPCS: 96372; J3111 ==

== ENCOUNTER 2025-07-19 11:35 | Outpatient (AMB) | payer MEDICARE, MEDICAID, SELFPAY ==
--- NOTE | 2025-07-19 12:16 | AM.OFFVISNUR ---
Intake Visit Reasons: Evenity #3 Allergies varenicline (From CHANTIX) Allergy (Severe, Verified 07/19/25 10:04) HIVES erythromycin base (ERYTHROMYCIN BASE) Allergy (Intermediate, Verified 07/19/25 10:04) RASH Macrolide Antibiotics (MACROLIDE ANTIBIOTICS) Allergy (Intermediate, Verified 07/19/25 10:04) RASH Sulfa (Sulfonamide Antibiotics) (SULFA (SULFONAMIDE ANTIBIOTICS)) Allergy (Intermediate, Verified 07/19/25 10:04) RASH amoxicillin Allergy (Unknown, Verified 07/19/25 10:04) Unknown barium sulfate Allergy (Unknown, Verified 07/19/25 10:04) Hives penicillin V Allergy (Unknown, Verified 07/19/25 10:04) Rash bupropion (From Wellbutrin) Adverse Reaction (Intermediate, Verified 07/19/25 10:04) Tinnitus sertraline (From Zoloft) Adverse Reaction (Mild, Verified 07/19/25 10:04) Insomnia citalopram Adverse Reaction (Unknown, Verified 07/19/25 10:04) Burning sensation all over body trazodone Adverse Reaction (Unknown, Verified 07/19/25 10:04) Vertigo Erythromycin Allergy (Unknown, Uncoded 07/19/25 10:04) Unsure Sulfa drugs Allergy (Unknown, Uncoded 07/19/25 10:04) Unsure sertraline Adverse Reaction (Uncoded 07/19/25 10:04) Insomnia Office Meds romosozumab-aqqg 210 mg/2.34 mL(105 mg/1.17 mL x2)subcutaneous syringe Performing Provider: Andrea Carballo MD [place] [facility] Administered by: Cher Lorenzana RN on 07/19/25 11:40 Dose Route Admin Location Dispensed Lot Number Expiration Date NDC Interactive Media Marketing Director 210 mg subcut bilateral upper arms 2.34 mL [id number] 12/02/27 42445-938-21 AMGEN Total Dispensed Waste 2.34 mL 0 % Comments: Pt reported slight itching at the injection site but stated that it was bearable and eventually went away after a couple of day. No other adverse reactions reported. Pt tolerated injection well. Pt scheduled in 4 weeks for next appt. No further questions at this time. Assessment & Plan Assessment & Plan Orders: Orders AMB Romosozumab Injection Patient Supplied Today M81.0 - Age-related osteoporosis without current pathological fracture Coding
--- OUTSIDE RECORDS SUMMARY | 2025-07-19 15:21 | XMS_ITS | Clinical Summary ---
Author Organization [address] Address [address] [place] [phone] Phone Care Team Providers Care Child Care Worker Name Role Phone Sukh Patel NP Primary Care Provider Allergies Active Allergy Reactions Criticality Noted Date Comments Bupropion Diarrhea,GI intolerance,Headach e 09/12/2023 Citalopram Other 03/16/2008 Pt states burning sensation on arms and legs Erythromycin 09/20/2020 Penicillin V Other,Rash 09/30/2005 Got tested in december 2015 and was not allergic to Penicillin Sertraline Other 09/12/2023 Anxiety, insomnia Sulfa (Sulfonamide Antibiotics) 09/20/2020 Varenicline Other,Wheezing 03/10/2007 Medications amLODIPine (NORVASC) 5 mg tablet Take 0.5 tablets (2.5 mg total) by mouth at bedtime. Active atenoloL (TENORMIN) 25 mg tablet 5 Active calcium carbonate-vit D3-min 600 mg-10 mcg (400 unit) tablet Take 1 tablet by mouth 2 (two) times a day. 3 Active cholecalciferol (VITAMIN D-3) 50 mcg (2,000 unit) capsule Take 1 capsule (2,000 Units total) by mouth 1 (one) time each day. 9 Active Laxative, bisacodyl, 5 mg EC tablet PLEASE SEE ATTACHED FOR DETAILED DIRECTIONS 5 Active diazePAM (VALIUM) 5 mg tablet 1 tablet (5 mg total). 1 Active docusate sodium (COLACE) 100 mg capsule TAKE 1 CAPSULE BY MOUTH AT BEDTIME NEEDED FOR CONSTIPATION 5 Active ketorolac (ACULAR) 0.5 % ophthalmic solution 5 Active levothyroxine (SYNTHROID, LEVOTHROID) 25 mcg tablet Take 1 tablet (25 mcg total) by mouth 1 (one) time each day. 3 Active lisinopril (PRINIVIL,ZESTR IL) 40 mg tablet Take 1 tablet (40 mg total) by mouth 1 (one) time each day. Active omeprazole (PriLOSEC) [address] capsule 5 Active Evenity 5 Active Encounters Date Type Department Care Team Description 07/04/2025 11:15 AM EST Office Visit General Surgery - [address] [phone] Marco Antonio Hassan MD History of right breast cancer (Primary Dx); History of partial mastectomy of right breast from Last 3 Months Surgical History Surgery [...] rism, cig Mother (Age 77) uncertain whether [place] or CVA Other Sister (Age 62) [place] Social History Tobacco Use Types Packs/Day Years [...] - Inhaled Oxygen Concentration - - Weight 42.7 kg (94 lb 3.2 oz) 07/04/2025 11:25 A M EST Height 149.9 cm (4' 11 ) 07/04/2025 11:25 AM EST Body Mass Index 19.03 07/04/2025 11:25 AM EST Plan of Treatment Health Maintenance Due [...] of Health Screening 07/13/2022 Depression Screening 08/04/2024 COVID-19 Vaccine ( season) 2025 12/27/2024, 04/09/2024, 05/31/2023, Additional history exists Influenza Vaccine (#1) 2025 DTaP,Tdap,and Td Vaccines (4 - Td or Tdap) 11/28/2026 11/28/2016, 08/04/2015, 03/13/2005 Breast Cancer Screening 04/18/2027 04/18/20 25, 04/02/2024, 04/02/2024, Additional history exists RSV Immunization Adult Patients (1 - 1-dose 75+ series) 2029 Zoster Vaccines Completed 04/29/2025, 12/27/2024 HIB Vaccines Aged Out No longer eligi [...] for breast cancer from Last 3 Months or Most Recently Relevant to Health Maintenance Results * MG Mammo Digital Screening w [...] is recommended in 1 year. MAMMO LOCATION: [facility], [address] [place] [address], [phone], . -------- FINAL REPORT -------- Dictated By: Khadijah Lloyd Dictated Date: 04/19/2025 19:19 ET Assigned Physician: Khadijah Lloyd Reviewed and Electronically Signed By: Khadijah Lloyd Signed Date: 04/19/2025 19:21 ET Workstation ID: [id number] Transcribed By: Self Edit Transcribed Date: 04/19/2025 [...] is recommended in 1 year. MAMMO LOCATION: [facility], [address] [place] [address], [phone], . -------- FINAL REPORT -------- Dictated By: Khadijah Lloyd Dictated Date: 04/19/2025 19:19 ET Assigned Physician: Khadijah Lloyd Reviewed and Electronically Signed By: Prema, Khadijah Signed Date: 04/19/2025 19:21 ET Workstation ID: [id number] Transcribed By: Self Edit Transcribed Date: 04/19/2025 19:19 ET Sukh Patel NP IMG BI PROCEDURES Final Resu lt from Last 3 Months or Most Recently Relevant to Health Maintenance Insurance [place] - [place] Care Teams Child Care Worker Relationship Specialty Start Date End Date Sukh Patel NP [address] [place], [place] PCP - General 07/01/17
--- OUTSIDE RECORDS SUMMARY | 2025-07-19 15:21 | XMS_ITS | Clinical Summary ---
Author Organization [facility] Prior to 01/01/[address] [place] [address] Care Team Providers Care Wide Piece Goods Inspector Name Role Phone Sukh Patel Primary Care Provider [phone] Allergies Active Allergy Reactions Criticality Noted Date [...] age to complete this topic Care Teams Wide Piece Goods Inspector Relationship Specialty Start Date End Date Sukh Patel: [phone] [address] [facility] [place] [address] PCP - General 07/01/17
== END 2025-07-19 12:16 | disposition home or self-care (01) ==
LOC: HO.ENCR 11:36
PROVIDERS: PCP Nurse Practitioner Family; Visit Provider Internal Medicine Endocrinology, Diabetes & Metabolism
DX: M81.0 Age-related osteoporosis without current pathological fracture (principal)

== ENCOUNTER → 2025-07-19 11:35 | Outpatient (BNVA) | payer MEDICARE, MEDICAID, SELFPAY | PROVIDERS: PCP Nurse Practitioner Family; Visit Provider Internal Medicine Endocrinology, Diabetes & Metabolism | DX: M81.0 Age-related osteoporosis without current pathological fracture (principal) | CPT/HCPCS: 96372; J3111 ==